=== PATIENT | female | born 1955 ===

== ENCOUNTER 2017-06-27 15:30 | Inpatient (IN) | payer MEDICAID ==
[2017-06-27] MEDS ORDERED: Nitroglycerin 2% Ointment Foilpak UD TOP STA (16:19)
--- NOTE | 2017-06-27 16:25 | C.PDOC ---
History Of Present Illness 61yo female, with history of hypertension, diabetes and non-compliant with medication for unknown reasons, presents to ED for evaluation of increased leg edema, shortness of breath and a blister on the top of her right foot, for the past week. She states the symptoms have been worsening since onset, prompting her visit today. No other complaints. Time Seen by Provider: 06/27/17 16:14 Chief Complaint (Nursing): Shortness Of Breath History Per: Patient History/Exam Limitations: no limitations Onset/Duration Of Symptoms: Days Current Symptoms Are (Timing): Still Present Past Medical History Reviewed: Historical Data, Nursing Documentation, Vital Signs Vital Signs: Last Vital Signs Temp 98 F 06/27/17 15:56 Pulse 88 06/27/17 18:05 Resp 16 06/27/17 18:05 BP 208/113 H 06/27/17 18:05 Pulse Ox 99 06/27/17 18:06 - Medical History PMH: Diabetes, HTN, Chronic Kidney Disease Surgical History: No Surg Hx Family History: States: No Known Family Hx - Social History Hx Alcohol Use: No Hx Substance Use: No - Immunization History Hx Tetanus Toxoid Vaccination: No Hx Influenza Vaccination: No Hx Pneumococcal Vaccination: No Review Of Systems Except As Marked, All Systems Reviewed And Found Negative. Constitutional: Negative for: Fever, Chills Respiratory: Positive for: Shortness of Breath Musculoskeletal: Positive for: Other (increasing leg edema, blister on dorsum of right foot) Physical Exam - Physical Exam Appears: Non-toxic Skin: Normal Color Head: Normacephalic Eye(s): bilateral: Normal Inspection Neck: Supple Chest: Symmetrical Cardiovascular: JVD, Other (+ S3) Respiratory: Rales, Other (moderate shortness of breath) Gastrointestinal/Abdominal: Soft, No Tenderness Extremity: Pedal Edema (pitting edema to bilateral kness, symmetrical), No Calf Tenderness, No Deformity, Other (5x5cm bulla on dorsum of right foot, no erythema, consistent with cellulitis) Neurological/Psych: Oriented x3 Gait: Steady ED Course And Treatment - Laboratory Results Result Diagrams: 06/27/17 16:58 06/27/17 16:58 Lab Interpretation: Abnormal (trop neg, BNP 17,000, UA 84 WBC's) ECG: Interpreted By Me ECG Rhythm: Sinus Rhythm ECG Interpretation: Normal Rate From EC (T^ inversions V5/v6) O2 Sat by Pulse Oximetry: 99 (RA) Pulse Ox Interpretation: Normal - Radiology CXR: Interpreted by Me CXR Interpretation: Yes: Other (+CHF) Progress Note: lasix, macrobid, ntp, labetolol PO Reevaluation Time: 18:02 Reassessment Condition: Improved (but BP still elevated and good compliance assured, Labetolol PO) - Physician Consult Information Outcome Of Conversation: 1800: d/w Dr. Giacomo Hameed, will refer to Dr. Alberto- Hospitalist Critical Care Time - Critical Care Note Total Time (in mins): 90 Documented critical care: time excludes all time spent performing seperately billable procedures. Medical Decision Making Medical Decision Making: Plan: -- Labs -- CXR -- Lasix 20mg IVP -- Nitro 1 application topical CHF lasix given, follow diuresis bullae on R dorsum foot probably weeping and was NOT infected, may be followed. HTN NTP and labetolol given follow BP Acute renal insufficiency creat 3.4 high no prior to compare prob related to HTN/DM consider renal US/consult DM glu 312, insulin given RISS UTI 84 WBC's Macrobid started follow UC Disposition Doctor Will See Patient In The: Hospital Counseled Patient/Family Regarding: Studies Performed, Diagnosis - Disposition Disposition: HOSPITALIZED Disposition Time: 18:04 Condition: GOOD - Clinical Impression Clinical Impression: Chronic congestive heart failure, Uncontrolled hypertension, UTI (urinary tract infection), Diabetes, Acute renal insufficiency - Scribe Statement The provider has reviewed the documentation as recorded by the Sheldone (Jaleesa Sheppard) Provider Attestation: All medical record entries made by the Eloise were at my direction and personally dictated by me. I have reviewed the chart and agree that the record accurately reflects my personal performance of the history, physical exam, medical decision making, and the department course for this patient. I have also personally directed, reviewed, and agree with the discharge instructions and disposition.
[2017-06-27] MEDS ORDERED: Nitroglycerin 2% Ointment Foilpak UD TOP ONE (16:39)
[2017-06-27 17:02] LABS: BASO # 0.1 K/uL (0.0-0.2); BASO % 1.5 % (0.0-2.0); EOS # 0.1 K/uL (0.0-0.7); EOS % 1.7 % (0.0-4.0); HEMOGLOBIN 10.8 g/dL (11.0-16.0); LYMPH % 16.3 % (20.0-40.0); MEAN CELL VOLUME 86.3 fL (81.0-99.0); MEAN CORPUSCULAR HGB CONC 33.6 g/dL (33.0-37.0); MEAN PLATELET VOLUME 8.3 fL (7.2-11.7); MONO # 0.5 K/uL (0.0-0.8); MONO % 8.1 % (0.0-10.0); NEUT # 4.5 K/uL (1.8-7.0); NEUT % 72.4 % (50.0-75.0); RBC 3.73 Mil/uL (3.80-5.20); RED CELL DISTRIBUTION WIDTH 14.7 % (11.5-14.5); WHITE BLOOD COUNT 6.2 K/uL (4.8-10.8)
[2017-06-27] MEDS ORDERED: (Novolin R) Insulin Human Regular 100 units/ml vial IV STA (17:05)
[2017-06-27 17:12] LABS: PROTHROMBIN TIME 11.5 SECONDS (9.7-12.2)
[2017-06-27] MEDS ORDERED: (Novolin R) Insulin Human Regular 100 units/ml vial ONE (17:20)
[2017-06-27 17:23] LABS: ALB/GLOB RATIO 0.9 (1.0-2.1); ALBUMIN 3.5 g/dL (3.5-5.0); CALCIUM 8.8 mg/dl (8.6-10.4)
[2017-06-27 17:25] LABS: SQUAMOUS EPITHIAL 24 /hpf (0-5); URINE BACTERIA FEW (<OCC); URINE BILIRUBIN NEGATIVE (NEGATIVE); URINE BLOOD 1+ (NEGATIVE); URINE CLARITY Hazy (Clear); URINE COLOR Yellow (YELLOW); URINE GLUCOSE (UA) 3+ mg/dL (Normal); URINE LEUKOCYTE ESTERASE 1+ Leu/uL (Negative); URINE PROTEIN 3+ mg/dL (NEGATIVE); URINE UROBILINOGEN NORMAL mg/dL (0.2-1.0)
[2017-06-27 17:31] LABS: TROPONIN I 0.034 ng/mL (0.00-0.120)
--- NOTE | 2017-06-27 17:31 | RAD ---
PROCEDURE: CHEST RADIOGRAPH, 1 VIEW HISTORY: SOB COMPARISON: None available. FINDINGS: LUNGS: Bibasilar atelectasis and or infiltrates and bilateral effusions. Central pulmonary vasculature is slightly increased. Rule out mild chronic compensated pulmonary edema/CHF PLEURA: No pneumothorax or pleural fluid seen. CARDIOVASCULAR: Heart appears mildly enlarged. OSSEOUS STRUCTURES: No significant abnormalities. VISUALIZED UPPER ABDOMEN: Normal. OTHER FINDINGS: None. IMPRESSION: Bibasilar atelectasis/infiltrates and bilateral effusions. Central pulmonary vasculature is slightly increased. Rule out mild chronic compensated pulmonary edema/CHF
--- NOTE | 2017-06-27 17:35 | RAD ---
HISTORY: Questionable of right-sided pneumothorax on prior portable chest COMPARISON: No prior. TECHNIQUE: Chest PA and lateral FINDINGS: LUNGS: Pulmonary vascular congestive changes with bilateral lower lobe alveolar-type infiltrates atelectasis and bilateral effusions PLEURA: As above. No pneumothorax seen. CARDIOVASCULAR: Cardiomegaly. OSSEOUS STRUCTURES: No mild chronic appearing anterior stature loss of several mid to lower thoracic segments. Mild multilevel degenerative spondylosis of the thoracic spine VISUALIZED UPPER ABDOMEN: Normal. OTHER FINDINGS: None. IMPRESSION: Pulmonary vascular congestive changes with bilateral lower lobe alveolar-type infiltrates atelectasis and bilateral effusions
--- NOTE | 2017-06-27 19:49 | CP.PCM.HP ---
<Niak Pierre - Last Filed: 06/28/17 02:16> History of Present Illness - History of Present Illness History of Present Illness: Code Status: Full Code Emergency Contact: Di Dallas (friend): [phone] CC: Leg swelling HPI: 61 year old female with past medical history of DM, HTN and renal injury presents to the ER for bilateral lower extremity swelling. Patient states she was brought to the ER by her friend Di. Patient states she she has noticed the swelling for over a week. She states she doesn't know why she didn't go to the ER earlier. She states her legs have also been burning about 5/10 pain constant. She has been rubbing Asim's on them with minimal relief. She states she has also been feeling short of breath for the past week when the swelling started. She states she can only walk about 5 minutes and then she has to stop. She has been sleeping with 2 pillows for many years and yesterday she had to add 2 more pillows while she was sleep due to her shortness of breath. She also states she has noticed a decrease in her weight for the past 6 months. She states she cannot quantify her decrease in weight. She states there has not been a change in her appetite. However she has been depressed because her brother of lung cancer last year. She denies thoughts of hurting herself or others. She states she has not seen a doctor in 3 years and therefore stopped taking all of her medications for the past 3 years. She denies chest pain, nausea, vomiting, diarrhea, constipation, dysuria, or hematuria. 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 absent: Chills, Fever - EENT Eyes: absent: Blurred Vision - Cardiovascular Cardiovascular: Dyspnea, Dyspnea on Exertion, Leg Edema, Pedal Edema. absent: Chest Pain, Lightheadedness, Palpitations - Respiratory Respiratory: Dyspnea, Dyspnea on Exertion. absent: Cough, Wheezing - Gastrointestinal Gastrointestinal: absent: Abdominal Pain, Constipation, Diarrhea, Nausea, Vomiting - Genitourinary Genitourinary: absent: Dysuria, Hematuria - Neurological Neurological: absent: Dizziness, Headaches - Psychiatric Psychiatric: Depression. absent: Homicidal Ideation, Suicidal Ideation - Endocrine Endocrine: absent: Palpitations Past Patient History - Past Social History Smoking Status: Never Smoked - CARDIAC Hx Hypertension: Yes - RENAL Hx Chronic Kidney Disease: Yes - ENDOCRINE/METABOLIC Hx Endocrine Disorders: Yes Hx Diabetes Mellitus Type 2: Yes - PSYCHIATRIC Hx Substance Use: No - SURGICAL HISTORY Hx Surgeries: No Meds Allergies/Adverse Reactions: Allergies Allergy/AdvReac Type Severity Reaction Status Date / Time No Known Allergies Allergy Verified 06/27/17 16:01 Physical Exam - Constitutional Appears: Cachectic, Chronically Ill - Head Exam Head Exam: ATRAUMATIC, NORMAL INSPECTION - Eye Exam Eye Exam: EOMI, Normal appearance, PERRL Pupil Exam: NORMAL ACCOMODATION - ENT Exam ENT Exam: Mucous Membranes Moist - Respiratory Exam Respiratory Exam: Decreased Breath Sounds (left lower lung decreased lung sounds ), NORMAL BREATHING PATTERN. absent: Rales, Rhonchi, Wheezes, Stridor - Cardiovascular Exam Cardiovascular Exam: REGULAR RHYTHM, RRR, +S1, +S2. absent: JVD - GI/Abdominal Exam GI & Abdominal Exam: Normal Bowel Sounds, Soft. absent: Tenderness - Extremities Exam Extremities exam: Positive for: normal capillary refill, pedal edema (+ pedal edema bilateral up to the knees), pedal pulses present. Negative for: calf tenderness, tenderness - Neurological Exam Neurological exam: Alert, Oriented x3 - Psychiatric Exam Psychiatric exam: Normal Affect, Normal Mood - Skin Skin Exam: Dry, Intact, Normal Color Results - Vital Signs Recent Vital Signs: Last Vital Signs Temp 98 F 06/27/17 18:54 Pulse 94 H 06/27/17 18:54 Resp 24 06/27/17 19:30 BP 219/125 H 06/27/17 18:54 Pulse Ox 100 06/27/17 19:30 - Labs Result Diagrams: 06/27/17 16:58 06/27/17 16:58 Labs: Laboratory Results - last 24 hr 06/27/17 06/27/17 06/27/17 16:23 16:58 16:58 WBC 6.2 RBC 3.73 L Hgb 10.8 L Hct 32.2 L MCV 86.3 MCH 29.0 MCHC 33.6 RDW 14.7 H Plt Count 333 MPV 8.3 Neut % (Auto) 72.4 Lymph % (Auto) 16.3 L [place] % (Auto) 8.1 Eos % (Auto) 1.7 Baso % (Auto) 1.5 Neut # (Auto) 4.5 Lymph # (Auto) 1.0 [place] # (Auto) 0.5 Eos # (Auto) 0.1 Baso # (Auto) 0.1 PT 11.5 INR 1.0 APTT 32 D-Dimer, Quantitative 449 H Sodium Potassium Chloride Carbon Dioxide Anion Gap BUN Creatinine Est GFR ( Amer) Est GFR (Non-Af Amer) POC Glucose (mg/dL) 312 H Random Glucose Calcium Total Bilirubin AST ALT Alkaline Phosphatase Troponin I NT-Pro-B Natriuret Pep Total Protein Albumin Globulin Albumin/Globulin Ratio Urine Color Urine Clarity Urine pH Ur Specific [place] Urine Protein Urine Glucose (UA) Urine Ketones Urine Blood Urine Nitrate Urine Bilirubin Urine Urobilinogen Ur Leukocyte Esterase Urine WBC (Auto) Urine RBC (Auto) Ur Squamous Epith Cells Urine Bacteria 06/27/17 06/27/17 16:58 16:58 WBC RBC Hgb Hct MCV MCH MCHC RDW Plt Count MPV Neut % (Auto) Lymph % (Auto) [place] % (Auto) Eos % (Auto) Baso % (Auto) Neut # (Auto) Lymph # (Auto) [place] # (Auto) Eos # (Auto) Baso # (Auto) PT INR APTT D-Dimer, Quantitative Sodium 138 Potassium 5.5 H Chloride 105 Carbon Dioxide 24 Anion Gap 15 BUN 35 H Creatinine 3.4 H Est GFR ( Amer) 17 Est GFR (Non-Af Amer) 14 POC Glucose (mg/dL) Random Glucose 297 H Calcium 8.8 Total Bilirubin 0.6 AST 42 H ALT 70 H Alkaline Phosphatase 136 H Troponin I 0.0340 NT-Pro-B Natriuret Pep 19149 H Total Protein 7.4 Albumin 3.5 Globulin 3.8 Albumin/Globulin Ratio 0.9 L Urine Color Yellow Urine Clarity Hazy Urine pH 5.0 Ur Specific [place] 1.016 Urine Protein 3+ H Urine Glucose (UA) 3+ H Urine Ketones Negative Urine Blood 1+ H Urine Nitrate Negative Urine Bilirubin Negative Urine Urobilinogen Normal Ur Leukocyte Esterase 1+ H Urine WBC (Auto) 82 H Urine RBC (Auto) 4 H Ur Squamous Epith Cells 24 H Urine Bacteria Few H Assessment & Plan - Assessment and Plan (Free Text) Assessment: 1.) Shortness of breath - possibly secondary to new onset CHF vs. PE - D-dimer: 449 - f/u VQ Scan - Heparin drip started 06/27/17 can be stopped if VQ scan negative - Patient started on bipap - Lasix 60mg IV given in the ER - Lasix 40mg IV given once - chest x-ray: pulmonary vascular congestion changes with bilateral lower lobe alveolar-type infiltrates atelectasis and bilateral effusions - Monitor I/O 2.) New onset CHF - Cardiology Consult: Dr. Granda --> help appreciated - PrBnP: [id number] - f/u Lipid Panel - f/u ECHO 3.) Bilateral LE Swelling - Lasix 60mg IV given in the ER - Lasix 40mg IV given once - Monitory I/O - Fluid restriction 1000ml 4.) History of HTN - Monitor BP - Hydralazine 10mg IV given once - Started hydrazaline 10mg po qid - f/u TSH and free T4 5.) History of DM Type II - Accuchecks - ISS - Hypoglycemia protocol - f/u A1c 6.) History of Kidney Injury - BUN/Cr: 35/3.4 - Nephro Consult: 7.) Hyperkalemia - possibly secondary to chronic kidney injury - K 5.5 - Continue to monitor 8.) Contaminated UA - patient is asymptomatic - f/u repeat UA 9.) Prophylaxis - Heparin drip - Pepcid 20mg daily Case discussed with Dr. Dolly Pierre PGY-1 <Varun Alberto - Last Filed: 06/28/17 06:29> Results - Vital Signs Recent Vital Signs: Last Vital Signs Temp 98.2 F 06/27/17 23:43 Pulse 72 06/28/17 06:04 Resp 20 06/27/17 23:43 BP 187/105 H 06/27/17 23:43 Pulse Ox 96 06/27/17 23:43 - Labs Result Diagrams: 06/27/17 16:58 06/27/17 16:58 Labs: Laboratory Results - last 24 hr 06/27/17 06/27/17 06/27/17 16:23 16:58 16:58 WBC 6.2 RBC 3.73 L Hgb 10.8 L Hct 32.2 L MCV 86.3 MCH 29.0 MCHC 33.6 RDW 14.7 H Plt Count 333 MPV 8.3 Neut % (Auto) 72.4 Lymph % (Auto) 16.3 L [place] % (Auto) 8.1 Eos % (Auto) 1.7 Baso % (Auto) 1.5 Neut # (Auto) 4.5 Lymph # (Auto) 1.0 [place] # (Auto) 0.5 Eos # (Auto) 0.1 Baso # (Auto) 0.1 PT 11.5 INR 1.0 APTT 32 D-Dimer, Quantitative 449 H Sodium Potassium Chloride Carbon Dioxide Anion Gap BUN Creatinine Est GFR ( Amer) Est GFR (Non-Af Amer) POC Glucose (mg/dL) 312 H Random Glucose Calcium Total Bilirubin AST ALT Alkaline Phosphatase Troponin I NT-Pro-B Natriuret Pep Total Protein Albumin Globulin Albumin/Globulin Ratio Urine Color Urine Clarity Urine pH Ur Specific [place] Urine Protein Urine Glucose (UA) Urine Ketones Urine Blood Urine Nitrate Urine Bilirubin Urine Urobilinogen Ur Leukocyte Esterase Urine WBC (Auto) Urine RBC (Auto) Ur Squamous Epith Cells Urine Bacteria 06/27/17 06/27/17 06/27/17 16:58 16:58 21:08 WBC RBC Hgb Hct MCV MCH MCHC RDW Plt Count MPV Neut % (Auto) Lymph % (Auto) [place] % (Auto) Eos % (Auto) Baso % (Auto) Neut # (Auto) Lymph # (Auto) [place] # (Auto) Eos # (Auto) Baso # (Auto) PT INR APTT D-Dimer, Quantitative Sodium 138 Potassium 5.5 H Chloride 105 Carbon Dioxide 24 Anion Gap 15 BUN 35 H Creatinine 3.4 H Est GFR ( Amer) 17 Est GFR (Non-Af Amer) 14 POC Glucose (mg/dL) 232 H Random Glucose 297 H Calcium 8.8 Total Bilirubin 0.6 AST 42 H ALT 70 H Alkaline Phosphatase 136 H Troponin I 0.0340 NT-Pro-B Natriuret Pep 62315 H Total Protein 7.4 Albumin 3.5 Globulin 3.8 Albumin/Globulin Ratio 0.9 L Urine Color Yellow Urine Clarity Hazy Urine pH 5.0 Ur Specific [place] 1.016 Urine Protein 3+ H Urine Glucose (UA) 3+ H Urine Ketones Negative Urine Blood 1+ H Urine Nitrate Negative Urine Bilirubin Negative Urine Urobilinogen Normal Ur Leukocyte Esterase 1+ H Urine WBC (Auto) 82 H Urine RBC (Auto) 4 H Ur Squamous Epith Cells 24 H Urine Bacteria Few H Assessment & Plan - Date & Time Date: 06/28/17 (I have seen and examined the patient. I agree with the findings and plan of care as documented by Dr. Pierre. Patient with acute CHF. New Onset. Consult to cardio. ROMIx3 with EKG. Aspirin and Statin. Lasix IV. Elevated d-dimer. CT angio not done due to renal status. VQ scan in AM. Heparin. NISS and accuchecks for history of diabetes. Monitor for acute changes.) Time: 06:27 Attending/Attestation - Attestation I have personally seen and examined this patient.: Yes I have fully participated in the care of the patient.: Yes I have reviewed all pertinent clinical information: Yes
[2017-06-27] MEDS ORDERED: Heparin25000 units/250ml 1/2NS 25,000 UNITS/250 ML BAG IV PRN ×2 (21:14→22:01)
[2017-06-27] MEDS ORDERED: Glucagon Recombinant 1 mg Inj IM PRN (21:14)
[2017-06-27] MEDS ORDERED: Dextrose 50% SYRINGE Inj (50 ml) IV PRN (21:14)
[2017-06-27] MEDS: (Novolin R) Insulin Human Regular 100 units/ml vial SC SCH (21:56)
[2017-06-28] MEDS: Albuterol-Ipratrop 3 mg / 0.5 (3 ml) UD INH SCH ×4 (01:45→19:53)
[2017-06-28 07:14] LABS: BASO # 0.1 K/uL (0.0-0.2); BASO % 1.8 % (0.0-2.0); EOS # 0.1 K/uL (0.0-0.7); HEMOGLOBIN 10.1 g/dL (11.0-16.0); LYMPH # 1.1 K/uL (1.0-4.3); LYMPH % 21.1 % (20.0-40.0); MEAN CELL VOLUME 85.9 fL (81.0-99.0); MEAN CORPUSCULAR HEMOGLOBIN 28.8 pg (27.0-31.0); MEAN CORPUSCULAR HGB CONC 33.5 g/dL (33.0-37.0); MEAN PLATELET VOLUME 8.4 fL (7.2-11.7); MONO # 0.5 K/uL (0.0-0.8); MONO % 8.8 % (0.0-10.0); NEUT # 3.4 K/uL (1.8-7.0); NEUT % 66.3 % (50.0-75.0); RBC 3.53 Mil/uL (3.80-5.20); RED CELL DISTRIBUTION WIDTH 15.2 % (11.5-14.5); WHITE BLOOD COUNT 5.2 K/uL (4.8-10.8)
[2017-06-28 07:23] LABS: PROTHROMBIN TIME 11.6 SECONDS (9.7-12.2)
[2017-06-28 07:44] LABS: TROPONIN I 0.052 ng/mL (0.00-0.120)
[2017-06-28 07:53] LABS: T4 9.47 ug/dL (5.5-11.0)
[2017-06-28 08:06] LABS: ALB/GLOB RATIO 0.9 (1.0-2.1); ALBUMIN 3.2 g/dL (3.5-5.0); CALCIUM 8.9 mg/dl (8.6-10.4)
[2017-06-28] MEDS: (Novolin R) Insulin Human Regular 100 units/ml vial SC SCH ×4 (08:27→22:05)
[2017-06-28] MEDS: (Novolin 70/30) NPH/Regular 70/30 Units/ml 10 ml vial SC SCH ×2 (10:37→22:04)
--- NOTE | 2017-06-28 10:39 | NM ---
EXAMINATION: Ventilation-perfusion scan. COMPARISON EXAMINATION: June 27, 2017. TWO-VIEW CHEST. TECHNIQUE: 13 MCI SEEN ON 03/1932 GAS ADMINISTERED PER AEROSOL. 4 MCI TECHNETIUM 99 M MAA ADMINISTERED INTRAVENOUSLY. FINDINGS: VENTILATION COMPONENT: UNREMARKABLE. PERFUSION COMPONENT: Heterogeneous distribution of radionuclide. No geographic, segmental, lobar abnormalities apparent on the present examination. IMPRESSION: LOW PROBABILITY VENTILATION PERFUSION SCAN FOR PULMONARY EMBOLISM. Concordant results (preliminary interpretation) provided by [facility]. Procedure Completed: 00:50 Preliminary ([facility]) Report: Dictated and Authenticated: Final Interpretation: 10:37 June 28, 2017.
--- NOTE | 2017-06-28 11:03 | CP.PCM.PN ---
<Klever Wright - Last Filed: 06/28/17 15:49> Subjective - Date & Time of Evaluation Date of Evaluation: 06/28/17 Time of Evaluation: 07:50 - Subjective Subjective: Medicine progress note for Dr. Hameed Patient seen and examined. Patient reports feeling better today. Patient's swelling has decreased down to the legs whereas it was up to her thighs previously per patient. Patient is also breathing better today; however she does note that she was using the BiPAP at night. Objective - Vital Signs/Intake and Output Vital Signs (last 24 hours): Temp Pulse Resp BP Pulse Ox 97.4 F L 74 20 197/106 H 97 06/28/17 08:34 06/28/17 08:34 06/28/17 08:34 06/28/17 08:34 06/28/17 08:34 Intake and Output: 06/28/17 06/28/17 06:59 18:59 Intake Total 108 Balance 108 - Medications Medications: Current Medications Albuterol/Ipratropium (Duoneb 3 Mg/0.5 Mg (3 Ml) Ud) 3 ml INH RQ6 [facility] Last Admin: 06/28/17 07:38 Dose: 3 ml Aspirin (Aspirin Chewable) 81 mg PO DAILY [facility] Last Admin: 06/28/17 10:35 Dose: 81 mg Dextrose (Dextrose 50% Inj) 0 ml IV STAT PRN; Protocol PRN Reason: Hypoglycemia Protocol Dextrose (Glutose 15) 0 gm PO ONCE PRN; Protocol PRN Reason: Hypoglycemia Protocol Famotidine (Pepcid) 20 mg PO DAILY [facility] Last Admin: 06/28/17 10:35 Dose: 20 mg Glucagon (Glucagen Diagnostic Kit) 0 mg IM STAT PRN; Protocol PRN Reason: Hypoglycemia Protocol Hydralazine HCl (Apresoline) 10 mg PO QID [facility] Last Admin: 06/28/17 10:36 Dose: 10 mg Dextrose (Dextrose 5% In Water 1000 Ml) 1,000 mls @ 0 mls/hr IV .Q0M PRN; Protocol; Per Protocol PRN Reason: Hypoglycemia Protocol Insulin Human Isoph/Insulin Regular (Novolin 70/30 (70/30 Units/Ml) 10 Ml) 15 units SC Q12H [facility] Last Admin: 06/28/17 10:37 Dose: 15 units Insulin Human Regular (Novolin R) 0 unit SC ACHS [facility] PRN Reason: Protocol Last Admin: 06/28/17 08:27 Dose: 2 unit - Labs Labs: 06/28/17 07:08 06/28/17 07:08 PT 11.6 SECONDS (9.7-12.2) 06/28/17 07:08 INR 1.0 06/28/17 07:08 APTT 81 SECONDS (21-34) H D 06/28/17 07:08 - Additional Findings Additional findings: - Constitutional Appears: Cachectic, Chronically Ill - Head Exam Head Exam: ATRAUMATIC, NORMAL INSPECTION - Eye Exam Eye Exam: EOMI, Normal appearance, PERRL - ENT Exam ENT Exam: Mucous Membranes Moist - Respiratory Exam Respiratory Exam: Decreased Breath Sounds (left lower lung decreased lung sounds ), NORMAL BREATHING PATTERN. absent: Rales, Rhonchi, Wheezes, Stridor - Cardiovascular Exam Cardiovascular Exam: REGULAR RHYTHM, +S1, +S2. absent: JVD - GI/Abdominal Exam GI & Abdominal Exam: Normal Bowel Sounds, Soft. absent: Tenderness - Extremities Exam Extremities exam: Positive for: normal capillary refill, pedal edema (2+ pitting edema bilateral), pedal pulses present. Negative for: calf tenderness, tenderness - Neurological Exam Neurological exam: Alert, Oriented x3 - Psychiatric Exam Psychiatric exam: Normal Affect, Normal Mood - Skin Skin Exam: Dry, Intact, Normal Color Assessment and Plan - Assessment and Plan (Free Text) Plan: 1.) Shortness of breath D-dimer: 449 - VQ Scan: low probability for PE - Heparin drip discontinued BiPAP prn Lasix 80 mg IV BID chest x-ray: pulmonary vascular congestion changes with bilateral lower lobe alveolar-type infiltrates atelectasis and bilateral effusions Monitor I/O 2.) New onset CHF Cardiology Consult: Dr. Granda --> help appreciated PrBnP: [id number] Lipid Panel shows TGs 60, LDL 128, HDL 79 f/u ECHO 3.) Bilateral LE Swelling Lasix 80mg IV BID Monitory I/O Fluid restriction 1000ml Venous dopplers negative for DVT 4.) History of HTN Monitor BP Hydralazine 10mg IV Q6 prn Hydrazaline 50mg po QID Per nephro, Coreg 6.25 mg PO BID and Lasix 80 mg IV BID were started 5.) History of DM Type II Accuchecks ISS Hypoglycemia protocol Hemoglobin A1c 10.6 NPH/Regular 15 units SC Q12H 6.) History of Chronic Kidney Injury Elevated BUN/Cr likely due to long-standing HTN and DM Nephro Consult: Dr. Mcdowell, chetan appreciated Renal ultrasound shows medical renal disease 7.) Hyperkalemia possibly secondary to chronic kidney injury Continue to monitor 8.) UTI Rocephin 1 gm IV daily started on 06/28/17 9.) Prophylaxis Heparin drip discontinued. Due to elevated PTT, will wait until tomorrow before starting Heparin SC Pepcid 20mg daily Discussed with Dr. Zari Wright PGY-1 <Giacomo Hameed H - Last Filed: 06/28/17 18:44> Objective - Vital Signs/Intake and Output Vital Signs (last 24 hours): Temp Pulse Resp BP Pulse Ox 97.9 F 78 20 191/90 H 99 06/28/17 15:00 06/28/17 15:00 06/28/17 15:00 06/28/17 17:42 06/28/17 15:00 Intake and Output: 06/28/17 06/28/17 06:59 18:59 Intake Total 601.73 Balance 601.73 - Medications Medications: Current Medications Albuterol/Ipratropium (Duoneb 3 Mg/0.5 Mg (3 Ml) Ud) 3 ml INH RQ6 [facility] Last Admin: 06/28/17 13:14 Dose: 3 ml Aspirin (Aspirin Chewable) 81 mg PO DAILY [facility] Last Admin: 06/28/17 10:35 Dose: 81 mg Carvedilol (Coreg) 6.25 mg PO BID [facility] Last Admin: 06/28/17 17:42 Dose: 6.25 mg Dextrose (Dextrose 50% Inj) 0 ml IV STAT PRN; Protocol PRN Reason: Hypoglycemia Protocol Dextrose (Glutose 15) 0 gm PO ONCE PRN; Protocol PRN Reason: Hypoglycemia Protocol Ergocalciferol (Drisdol 50,000 Intl Units Cap) 1 cap PO Q7D [facility] Last Admin: 06/28/17 16:17 Dose: 1 cap Famotidine (Pepcid) 20 mg PO DAILY [facility] Last Admin: 06/28/17 10:35 Dose: 20 mg Ferrous Gluconate (Fergon) 324 mg PO TID [facility] Last Admin: 06/28/17 17:42 Dose: 324 mg Furosemide (Lasix) 80 mg IVP BID [facility] Last Admin: 06/28/17 17:42 Dose: 80 mg Glucagon (Glucagen Diagnostic Kit) 0 mg IM STAT PRN; Protocol PRN Reason: Hypoglycemia Protocol Hydralazine HCl (Apresoline) 50 mg PO QID [facility] Last Admin: 06/28/17 17:42 Dose: 50 mg Hydralazine HCl (Apresoline) 10 mg IVP Q6H PRN PRN Reason: SBP>160 Last Admin: 06/28/17 14:59 Dose: 10 mg Dextrose (Dextrose 5% In Water 1000 Ml) 1,000 mls @ 0 mls/hr IV .Q0M PRN; Protocol; Per Protocol PRN Reason: Hypoglycemia Protocol Ceftriaxone Sodium 1 gm/ (Sodium Chloride) 100 mls @ 100 mls/hr IVPB Q24H [facility] PRN Reason: Protocol Last Admin: 06/28/17 12:46 Dose: 100 mls/hr Insulin Human Isoph/Insulin Regular (Novolin 70/30 (70/30 Units/Ml) 10 Ml) 15 units SC Q12H [facility] Last Admin: 06/28/17 10:37 Dose: 15 units Insulin Human Regular (Novolin R) 0 unit SC ACHS [facility] PRN Reason: Protocol Last Admin: 06/28/17 17:43 Dose: Not Given Vitamin B Complex/Vit C/Folic Acid (Nephro-Matti) 1 tab PO 0800 [facility] - Labs Labs: 06/28/17 07:08 06/28/17 07:08 PT 11.6 SECONDS (9.7-12.2) 06/28/17 07:08 INR 1.0 06/28/17 07:08 APTT 125 SECONDS (21-34) H* D 06/28/17 14:03 Attending/Attestation - Attestation I have personally seen and examined this patient.: Yes I have fully participated in the care of the patient.: Yes I have reviewed all pertinent clinical information, including history, physical exam and plan: Yes Notes (Text): Medical attending: Patient was seen and examined by me. Agree with the above note by the resident. The patient appeared very depressed and sad. She explains she's just had a family member pass away. We did discuss with her that we are waiting for the results of the echo as well as results of the renal ultrasound. She does have a high BNP as well as CXRAY findings suggest CHF probably for some time now. Also there is appears to be CKD, probably from long standing HTN as well as DM. She got Lasix IV overnight and then on higher doses now per nephrology. She has also very high blood pressure. She tells us she is aware of her HTN but has not been on medications. The HTN is probably also worsned due to her level of stress/anxiety as well. The V/Q returned and low probability - so the heparin ggt was stopped. thank you Giacomo Hameed
--- NOTE | 2017-06-28 11:52 | CARD ---
APPROVED REPORT EKG Measurement Heart [id number] <Conclusion> Normal sinus rhythm Anterior infarct, age undetermined ST & T wave abnormality, consider lateral ischemia Abnormal ECG
[2017-06-28 12:27] LABS: SQUAMOUS EPITHIAL 2 /hpf (0-5); URINE BILIRUBIN NEGATIVE (NEGATIVE); URINE BLOOD 1+ (NEGATIVE); URINE CLARITY Hazy (Clear); URINE COLOR Yellow (YELLOW); URINE GLUCOSE (UA) 3+ mg/dL (Normal); URINE LEUKOCYTE ESTERASE NEG Leu/uL (Negative); URINE PROTEIN 3+ mg/dL (NEGATIVE); URINE UROBILINOGEN NORMAL mg/dL (0.2-1.0)
[2017-06-28 12:29] LABS: URINE BACTERIA FEW (<OCC)
[2017-06-28 12:37] LABS: CREATININE, RANDOM URINE 59.8 mg/dL
--- NOTE | 2017-06-28 13:39 | US ---
Renal and urinary bladder ultrasound History: Acute renal insufficiency. Comparison: None available. Technique: Real-time sonography was performed through the kidneys and urinary bladder. Findings: Right kidney: 11.2 x 4.3 x 5.8 centimeters. Increased echogenicity of the renal parenchymal cortex suggestive for medical renal disease. No calculi or hydronephrosis. Left Kidney: 10.4 x 4.6 x 4.9 centimeters. Increased echogenicity of the renal parenchymal cortex suggestive for medical renal disease. No calculi or hydronephrosis. Visualized aorta is preserved. Patient voided prior to examination therefore evaluation of the urinary bladder is limited. Underdistended and or mildly thickened urinary bladder wall. Postvoid residual of 34 cc. Bilateral ureteral jets were not well visualized. No gross bladder calculus identified. Bilateral pleural effusions were noted. Impression: 1. Increased echogenicity of the bilateral renal parenchymal cortices suggestive for medical renal disease. 2. Limited evaluation of the urinary bladder given that the patient voided prior to examination. 34 cc postvoid residual in the urinary bladder. Mild underdistention and or thickening of the urinary bladder. Clinical correlation. Bilateral ureteral jets were not well visualized. 3. Bilateral pleural effusions were noted.
--- NOTE | 2017-06-28 14:00 | VASCLAB ---
PROCEDURE: Lower Extremity Venous Duplex Exam. HISTORY: LE swelling PRIORS: None. TECHNIQUE: Bilateral common femoral, femoral, popliteal and posterior tibial, peroneal and great saphenous veins were evaluated. Flow was assessed with color Doppler, compressibility, assessment of phasic flow and augmentation response. Report prepared by PAT Mak, RVT FINDINGS: RIGHT: 1. Common Femoral Vein: 1.1. Compressibility - Fully compressible: Thrombus - None : Flow - Phasic: Augmentation -Normal: Reflux - None. 2. Femoral Vein: 2.1. Compressibility - Fully compressible: Thrombus - None : Flow - Phasic: Augmentation -Normal: Reflux - None. 3. Popliteal Vein: 3.1. Compressibility - Fully compressible: Thrombus - None : Flow - Phasic: Augmentation -Normal: Reflux - None. 4. Posterior Tibial Vein: 4.1. Compressibility - Fully compressible: Thrombus - None: Flow - Phasic: Augmentation -Normal: Reflux - None. 5. Peroneal Vein: 5.1. Compressibility - Fully compressible: Thrombus - None: Flow - Phasic: Augmentation -Normal: Reflux - None. 6. Great Saphenous Vein: 6.1. Compressibility - Fully compressible: Thrombus - None: Flow - Phasic: Augmentation - Normal: Reflux - None. LEFT: 1. Common Femoral Vein: 1.1. Compressibility - Fully compressible: Thrombus - None: Flow - Phasic: Augmentation -Normal: Reflux - None. 2. Femoral Vein: 2.1. Compressibility - Fully compressible: Thrombus - None: Flow - Phasic: Augmentation -Normal: Reflux - None. 3. Popliteal Vein: 3.1. Compressibility - Fully compressible: Thrombus - None : Flow - Phasic: Augmentation -Normal: Reflux - None. 4. Posterior Tibial Vein: 4.1. Compressibility - Fully compressible: Thrombus - None: Flow - Phasic: Augmentation -Normal: Reflux - None. 5. Peroneal Vein: 5.1. Compressibility - Fully compressible: Thrombus - None: Flow - Phasic: Augmentation -Normal: Reflux - None. 6. Great Saphenous Vein: 6.1. Compressibility - Fully compressible: Thrombus - None: Flow - Phasic: Augmentation - Normal: Reflux - None. OTHER FINDINGS: Right: None significant. Left: None significant. IMPRESSION: Right: No evidence of deep or superficial vein thrombosis of the right lower extremity. Normal valve function noted of the right side. Left: No evidence of deep or superficial vein thrombosis of the left lower extremity. Normal valve function noted of the left side.
[2017-06-28 14:19] LABS: IRON 29 ug/dL (37-170)
[2017-06-28 14:22] LABS: COMPLEMENT C4 37.5 mg/dL (14.0-44.0)
[2017-06-28 14:29] LABS: % IRON SATURATION 13 (20-55); TOTAL IRON BINDING CAPACITY 231 ug/dL (250-450)
[2017-06-28 14:55] LABS: FERRITIN 37.6 ng/mL
[2017-06-28 15:25] LABS: FOLATE 12.8 ng/mL
--- NOTE | 2017-06-28 15:33 | CP.PCM.CON ---
History of Present Illness - History of Present Illness History of Present Illness: Initial Nephrology Consultation: Assessment: critical Nephrotic syndrome with fluid overload Acute Kidney Injury (N17.9) versus likely progressive underlying CKD Diabetic chronic Kidney Disease (E11.22) Hypertensive Chronic Kidney Disease (I12.9) with HTN urgency ? Chronic Kidney Disease (N18.5) Stage 5 with 5 gm proteinuria (R80.9) likely due to DM Anemia (D64.9), Hyperphosphatemia (E83.39), Secondary Hyperparathyroidism (E21.1 ), HTN (I12.9) non compliance to meds and follow up Plan No acute need for renal replacement therapy at this time. Hypertension control with meds as ordered. Patient not on ACEI/ARB due to advanced renal insuff. add coreg 6.25 mg bid Monitor Input/Output, daily weights and renal function with basic metabolic panel diuresis with IV lasix 80 mg bid add iron supplements, MVI and weekly Vitamin D Check urine analysis, spot protein/creatinine and albumin/creatinine ratio, renal sonogram. Check for 25-OH vitamin D, iPTH, phosphorus level Check GN work up as C3, C4, CANDY, Anti dsDNA, HIV/Hep B and Hep C serology anemia work up with serum protein electrophoresis with immunofixation, free light chain assay, iron studies compliance to meds and follow up reinforced once stable, consider age appropriate malignancy screening Dose meds/antibiotics for reduced GFR. Avoid fleets enema/magnesium based laxatives. Avoid nephrotoxins/NSAIDs/ iodinated contrast (unless needed emergently) Glycemic control Further work up/management as per primary team Thanks for allowing me to participate in care of your patient. Will follow patient with you. Please call if any Qs. d/w team. Dr Roque Ruth Office: [phone] Chief Complaint; leg swelling and SOB HPI: Pt is a 61 F with hx of diabetes Mellitus (>20 years), hypertension (>20 years), kidney disease for few years, not taking meds for last 3 years and no followups presented with complaints of SOB and worsening legs swelling for last 1 week Denies OTC/herbal meds or NSAIDs No recent iodinated contrast exposure. No obvious episodes of low BP. she feels that had lost weight, don't know how much pt says she was told in [place] few years ago that kidney was damaged due to DM /HTN ROS: Cardiovascular: No chest pain. Pulmonary: c/o shortness of breath Gastrointestinal: denies abdominal pain No nausea. No vomiting. Genitourinary: No pain while urinating. Denies blood in urine. All other negative Physical Examination: General Appearance: Comfortable, in no acute respiratory distress, co-operative . facial muscle wasting + Vitals reviewed and noted as below Head; Atraumatic, normocephalic ENT: no ulcers no thrush. Tongue is midline. Oropharynx: no rash or ulcers. EYES: Pupils are equal, round and reactive to light accommodation. Eye muscles and extraocular movement intact. Sclera is anicteric. Neck; supple no lymphadenopathy, no thyromegaly or bruit Lungs: Normal respiratory rate/effort. Breath sounds bilateral equal and decreased at bases Heart: Normal rate. s1s2 normal. No rub or gallop. Extremities: 2+ edema. No varicose veins Neurological: Patient is alert, awake and oriented to person, place and time. No focal deficit. Strength bilateral appropriate and equal Skin: Warm and dry. Normal turgor. No rash. Palpitation: Normal elasticity for age Abdomen: Abdomen is soft. Bowel sounds +. There is no abdominal tenderness, no guarding/rigidity no organomegaly Psych: lack insight and has normal affect/mood MSK: no joint tenderness or swelling. Digits and nails normal, no deformity : kidney or bladder not palpable Labs/imaging reviewed. Past medical history, past surgical history, family history, social history, allergy reviewed and noted as below Family hx: no hx of CKD. Rest non-contributory Past Patient History - Past Medical History & Family History Past Medical History?: Yes - Past Social History Smoking Status: Never Smoked - CARDIAC Hx Hypertension: Yes - RENAL Hx Chronic Kidney Disease: Yes - ENDOCRINE/METABOLIC Hx Endocrine Disorders: Yes Hx Diabetes Mellitus Type 2: Yes - MUSCULOSKELETAL/RHEUMATOLOGICAL Hx Falls: No - PSYCHIATRIC Hx Substance Use: No - SURGICAL HISTORY Hx Surgeries: No Meds Allergies/Adverse Reactions: Allergies Allergy/AdvReac Type Severity Reaction Status Date / Time No Known Allergies Allergy Verified 06/27/17 16:01 - Medications Medications: Current Medications Albuterol/Ipratropium (Duoneb 3 Mg/0.5 Mg (3 Ml) Ud) 3 ml INH RQ6 ATUL Last Admin: 06/28/17 13:14 Dose: 3 ml Aspirin (Aspirin Chewable) 81 mg PO DAILY [facility] Last Admin: 06/28/17 10:35 Dose: 81 mg Dextrose (Dextrose 50% Inj) 0 ml IV STAT PRN; Protocol PRN Reason: Hypoglycemia Protocol Dextrose (Glutose 15) 0 gm PO ONCE PRN; Protocol PRN Reason: Hypoglycemia Protocol Famotidine (Pepcid) 20 mg PO DAILY [facility] Last Admin: 06/28/17 10:35 Dose: 20 mg Furosemide (Lasix) 80 mg IVP BID [facility] Last Admin: 06/28/17 12:36 Dose: 80 mg Glucagon (Glucagen Diagnostic Kit) 0 mg IM STAT PRN; Protocol PRN Reason: Hypoglycemia Protocol Hydralazine HCl (Apresoline) 50 mg PO QID [facility] Last Admin: 06/28/17 14:01 Dose: 50 mg Hydralazine HCl (Apresoline) 10 mg IVP Q6H PRN PRN Reason: SBP>160 Dextrose (Dextrose 5% In Water 1000 Ml) 1,000 mls @ 0 mls/hr IV .Q0M PRN; Protocol; Per Protocol PRN Reason: Hypoglycemia Protocol Ceftriaxone Sodium 1 gm/ (Sodium Chloride) 100 mls @ 100 mls/hr IVPB Q24H [facility] PRN Reason: Protocol Last Admin: 06/28/17 12:46 Dose: 100 mls/hr Insulin Human Isoph/Insulin Regular (Novolin 70/30 (70/30 Units/Ml) 10 Ml) 15 units SC Q12H [facility] Last Admin: 06/28/17 10:37 Dose: 15 units Insulin Human Regular (Novolin R) 0 unit SC ACHS [facility] PRN Reason: Protocol Last Admin: 06/28/17 12:36 Dose: 3 unit Results - Vital Signs Recent Vital Signs: Last Vital Signs Temp 97.4 F L 06/28/17 08:34 Pulse 80 06/28/17 14:01 Resp 20 06/28/17 08:34 BP 182/78 H 06/28/17 14:01 Pulse Ox 97 06/28/17 08:34 - Labs Result Diagrams: 06/28/17 07:08 06/28/17 07:08 Labs: Laboratory Results - last 24 hr 06/27/17 06/27/17 06/27/17 16:23 16:58 16:58 WBC 6.2 RBC 3.73 L Hgb 10.8 L Hct 32.2 L MCV 86.3 MCH 29.0 MCHC 33.6 RDW 14.7 H Plt Count 333 MPV 8.3 Neut % (Auto) 72.4 Lymph % (Auto) 16.3 L [place] % (Auto) 8.1 Eos % (Auto) 1.7 Baso % (Auto) 1.5 Neut # (Auto) 4.5 Lymph # (Auto) 1.0 [place] # (Auto) 0.5 Eos # (Auto) 0.1 Baso # (Auto) 0.1 PT 11.5 INR 1.0 APTT 32 D-Dimer, Quantitative 449 H Sodium Potassium Chloride Carbon Dioxide Anion Gap BUN Creatinine Est GFR ( Amer) Est GFR (Non-Af Amer) POC Glucose (mg/dL) 312 H Random Glucose Hemoglobin A1c Calcium Phosphorus Magnesium Iron TIBC % Saturation Ferritin Total Bilirubin AST ALT Alkaline Phosphatase Troponin I NT-Pro-B Natriuret Pep Total Protein Albumin Globulin Albumin/Globulin Ratio Triglycerides Cholesterol LDL Cholesterol Direct HDL Cholesterol 25-OH Vitamin D Total Thyroxine (T4) TSH 3rd Generation Urine Color Urine Clarity Urine pH Ur Specific [place] Urine Protein Urine Glucose (UA) Urine Ketones Urine Blood Urine Nitrate Urine Bilirubin Urine Urobilinogen Ur Leukocyte Esterase Urine WBC (Auto) Urine RBC (Auto) Ur Squamous Epith Cells Urine Bacteria Ur Random Creatinine U Random Total Protein Urine Microalbumin Complement C3 Complement C4 06/27/17 06/27/17 06/27/17 16:58 16:58 21:08 WBC RBC Hgb Hct MCV MCH MCHC RDW Plt Count MPV Neut % (Auto) Lymph % (Auto) [place] % (Auto) Eos % (Auto) Baso % (Auto) Neut # (Auto) Lymph # (Auto) [place] # (Auto) Eos # (Auto) Baso # (Auto) PT INR APTT D-Dimer, Quantitative Sodium 138 Potassium 5.5 H Chloride 105 Carbon Dioxide 24 Anion Gap 15 BUN 35 H Creatinine 3.4 H Est GFR ( Amer) 17 Est GFR (Non-Af Amer) 14 POC Glucose (mg/dL) 232 H Random Glucose 297 H Hemoglobin A1c Calcium 8.8 Phosphorus Magnesium Iron TIBC % Saturation Ferritin Total Bilirubin 0.6 AST 42 H ALT 70 H Alkaline Phosphatase 136 H Troponin I 0.0340 NT-Pro-B Natriuret Pep 80961 H Total Protein 7.4 Albumin 3.5 Globulin 3.8 Albumin/Globulin Ratio 0.9 L Triglycerides Cholesterol LDL Cholesterol Direct HDL Cholesterol 25-OH Vitamin D Total Thyroxine (T4) TSH 3rd Generation Urine Color Yellow Urine Clarity Hazy Urine pH 5.0 Ur Specific [place] 1.016 Urine Protein 3+ H Urine Glucose (UA) 3+ H Urine Ketones Negative Urine Blood 1+ H Urine Nitrate Negative Urine Bilirubin Negative Urine Urobilinogen Normal Ur Leukocyte Esterase 1+ H Urine WBC (Auto) 82 H Urine RBC (Auto) 4 H Ur Squamous Epith Cells 24 H Urine Bacteria Few H Ur Random Creatinine U Random Total Protein Urine Microalbumin Complement C3 Complement C4 06/28/17 06/28/17 06/28/17 06:31 07:08 07:08 WBC 5.2 RBC 3.53 L Hgb 10.1 L Hct 30.3 L MCV 85.9 MCH 28.8 MCHC 33.5 RDW 15.2 H Plt Count 311 MPV 8.4 Neut % (Auto) 66.3 Lymph % (Auto) 21.1 [place] % (Auto) 8.8 Eos % (Auto) 2.0 Baso % (Auto) 1.8 Neut # (Auto) 3.4 Lymph # (Auto) 1.1 [place] # (Auto) 0.5 Eos # (Auto) 0.1 Baso # (Auto) 0.1 PT INR APTT D-Dimer, Quantitative Sodium 141 Potassium 4.9 Chloride 105 Carbon Dioxide 23 Anion Gap 17 BUN 39 H Creatinine 3.8 H Est GFR ( Amer) 15 Est GFR (Non-Af Amer) 12 POC Glucose (mg/dL) 238 H Random Glucose 267 H Hemoglobin A1c Calcium 8.9 Phosphorus 3.9 Magnesium 2.1 Iron TIBC % Saturation Ferritin Total Bilirubin 0.4 AST 28 ALT 58 H Alkaline Phosphatase 120 Troponin I NT-Pro-B Natriuret Pep Total Protein 6.9 Albumin 3.2 L Globulin 3.7 Albumin/Globulin Ratio 0.9 L Triglycerides 60 Cholesterol 220 H LDL Cholesterol Direct 128 HDL Cholesterol 79 H 25-OH Vitamin D Total Thyroxine (T4) 9.47 TSH 3rd Generation 1.02 Urine Color Urine Clarity Urine pH Ur Specific [place] Urine Protein Urine Glucose (UA) Urine Ketones Urine Blood Urine Nitrate Urine Bilirubin Urine Urobilinogen Ur Leukocyte Esterase Urine WBC (Auto) Urine RBC (Auto) Ur Squamous Epith Cells Urine Bacteria Ur Random Creatinine U Random Total Protein Urine Microalbumin Complement C3 Complement C4 06/28/17 06/28/17 06/28/17 07:08 07:08 07:08 WBC RBC Hgb Hct MCV MCH MCHC RDW Plt Count MPV Neut % (Auto) Lymph % (Auto) [place] % (Auto) Eos % (Auto) Baso % (Auto) Neut # (Auto) Lymph # (Auto) [place] # (Auto) Eos # (Auto) Baso # (Auto) PT 11.6 INR 1.0 APTT 81 H D D-Dimer, Quantitative Sodium Potassium Chloride Carbon Dioxide Anion Gap BUN Creatinine Est GFR ( Amer) Est GFR (Non-Af Amer) POC Glucose (mg/dL) Random Glucose Hemoglobin A1c 10.6 H Calcium Phosphorus Magnesium Iron TIBC % Saturation Ferritin 37.6 Total Bilirubin AST ALT Alkaline Phosphatase Troponin I 0.0520 NT-Pro-B Natriuret Pep Total Protein Albumin Globulin Albumin/Globulin Ratio Triglycerides Cholesterol LDL Cholesterol Direct HDL Cholesterol 25-OH Vitamin D Total Thyroxine (T4) TSH 3rd Generation Urine Color Urine Clarity Urine pH Ur Specific [place] Urine Protein Urine Glucose (UA) Urine Ketones Urine Blood Urine Nitrate Urine Bilirubin Urine Urobilinogen Ur Leukocyte Esterase Urine WBC (Auto) Urine RBC (Auto) Ur Squamous Epith Cells Urine Bacteria Ur Random Creatinine U Random Total Protein Urine Microalbumin Complement C3 Complement C4 06/28/17 06/28/17 06/28/17 09:00 11:32 12:02 WBC RBC Hgb Hct MCV MCH MCHC RDW Plt Count MPV Neut % (Auto) Lymph % (Auto) [place] % (Auto) Eos % (Auto) Baso % (Auto) Neut # (Auto) Lymph # (Auto) [place] # (Auto) Eos # (Auto) Baso # (Auto) PT INR APTT D-Dimer, Quantitative Sodium Potassium Chloride Carbon Dioxide Anion Gap BUN Creatinine Est GFR ( Amer) Est GFR (Non-Af Amer) POC Glucose (mg/dL) 278 H Random Glucose Hemoglobin A1c Calcium Phosphorus Magnesium Iron TIBC % Saturation Ferritin Total Bilirubin AST ALT Alkaline Phosphatase Troponin I NT-Pro-B Natriuret Pep Total Protein Albumin Globulin Albumin/Globulin Ratio Triglycerides Cholesterol LDL Cholesterol Direct HDL Cholesterol 25-OH Vitamin D Total Thyroxine (T4) TSH 3rd Generation Urine Color Yellow Urine Clarity Hazy Urine pH 5.0 Ur Specific [place] 1.009 Urine Protein 3+ H Urine Glucose (UA) 3+ H Urine Ketones Negative Urine Blood 1+ H Urine Nitrate Negative Urine Bilirubin Negative Urine Urobilinogen Normal Ur Leukocyte Esterase Neg Urine WBC (Auto) 6 H Urine RBC (Auto) 1 Ur Squamous Epith Cells 2 Urine Bacteria Few H Ur Random Creatinine U Random Total Protein Urine Microalbumin Complement C3 134.0 Complement C4 37.5 06/28/17 06/28/17 06/28/17 12:03 12:07 14:00 WBC RBC Hgb Hct MCV MCH MCHC RDW Plt Count MPV Neut % (Auto) Lymph % (Auto) [place] % (Auto) Eos % (Auto) Baso % (Auto) Neut # (Auto) Lymph # (Auto) [place] # (Auto) Eos # (Auto) Baso # (Auto) PT INR APTT D-Dimer, Quantitative Sodium Potassium Chloride Carbon Dioxide Anion Gap BUN Creatinine Est GFR ( Amer) Est GFR (Non-Af Amer) POC Glucose (mg/dL) Random Glucose Hemoglobin A1c Calcium Phosphorus Magnesium Iron 29 L TIBC 231 L % Saturation 13 L Ferritin Total Bilirubin AST ALT Alkaline Phosphatase Troponin I NT-Pro-B Natriuret Pep Total Protein Albumin Globulin Albumin/Globulin Ratio Triglycerides Cholesterol LDL Cholesterol Direct HDL Cholesterol 25-OH Vitamin D Total Thyroxine (T4) TSH 3rd Generation Urine Color Urine Clarity Urine pH Ur Specific [place] Urine Protein Urine Glucose (UA) Urine Ketones Urine Blood Urine Nitrate Urine Bilirubin Urine Urobilinogen Ur Leukocyte Esterase Urine WBC (Auto) Urine RBC (Auto) Ur Squamous Epith Cells Urine Bacteria Ur Random Creatinine 59.8 U Random Total Protein 322.0 H Urine Microalbumin > 950.0 H Complement C3 Complement C4 06/28/17 06/28/17 14:00 14:03 WBC RBC Hgb Hct MCV MCH MCHC RDW Plt Count MPV Neut % (Auto) Lymph % (Auto) [place] % (Auto) Eos % (Auto) Baso % (Auto) Neut # (Auto) Lymph # (Auto) [place] # (Auto) Eos # (Auto) Baso # (Auto) PT INR APTT 125 H* D D-Dimer, Quantitative Sodium Potassium Chloride Carbon Dioxide Anion Gap BUN Creatinine Est GFR ( Amer) Est GFR (Non-Af Amer) POC Glucose (mg/dL) Random Glucose Hemoglobin A1c Calcium Phosphorus Magnesium Iron TIBC % Saturation Ferritin Total Bilirubin AST ALT Alkaline Phosphatase Troponin I NT-Pro-B Natriuret Pep Total Protein Albumin Globulin Albumin/Globulin Ratio Triglycerides Cholesterol LDL Cholesterol Direct HDL Cholesterol 25-OH Vitamin D Total 20.3 L Thyroxine (T4) TSH 3rd Generation Urine Color Urine Clarity Urine pH Ur Specific [place] Urine Protein Urine Glucose (UA) Urine Ketones Urine Blood Urine Nitrate Urine Bilirubin Urine Urobilinogen Ur Leukocyte Esterase Urine WBC (Auto) Urine RBC (Auto) Ur Squamous Epith Cells Urine Bacteria Ur Random Creatinine U Random Total Protein Urine Microalbumin Complement C3 Complement C4
[2017-06-28] MEDS ORDERED: Ergocalciferol 50,000 Intl Units Cap PO SCH (15:45)
--- NOTE | 2017-06-28 18:46 | CP.PCM.CON ---
History of Present Illness - History of Present Illness History of Present Illness: patient seen/examined. echocardiogram reviewed Normal left ventricular funciton small pericardial effusion lareg pleural effusion. There is thickening of the aortic valve, but no clear vegetation. Blood pressure control. Past Patient History - Past Medical History & Family History Past Medical History?: Yes - Past Social History Smoking Status: Never Smoked - CARDIAC Hx Hypertension: Yes - RENAL Hx Chronic Kidney Disease: Yes - ENDOCRINE/METABOLIC Hx Endocrine Disorders: Yes Hx Diabetes Mellitus Type 2: Yes - MUSCULOSKELETAL/RHEUMATOLOGICAL Hx Falls: No - PSYCHIATRIC Hx Substance Use: No - SURGICAL HISTORY Hx Surgeries: No Meds Allergies/Adverse Reactions: Allergies Allergy/AdvReac Type Severity Reaction Status Date / Time No Known Allergies Allergy Verified 06/27/17 16:01 - Medications Medications: Current Medications Albuterol/Ipratropium (Duoneb 3 Mg/0.5 Mg (3 Ml) Ud) 3 ml INH RQ6 [facility] Last Admin: 06/28/17 13:14 Dose: 3 ml Aspirin (Aspirin Chewable) 81 mg PO DAILY [facility] Last Admin: 06/28/17 10:35 Dose: 81 mg Carvedilol (Coreg) 6.25 mg PO BID [facility] Last Admin: 06/28/17 17:42 Dose: 6.25 mg Dextrose (Dextrose 50% Inj) 0 ml IV STAT PRN; Protocol PRN Reason: Hypoglycemia Protocol Dextrose (Glutose 15) 0 gm PO ONCE PRN; Protocol PRN Reason: Hypoglycemia Protocol Ergocalciferol (Drisdol 50,000 Intl Units Cap) 1 cap PO Q7D [facility] Last Admin: 06/28/17 16:17 Dose: 1 cap Famotidine (Pepcid) 20 mg PO DAILY [facility] Last Admin: 06/28/17 10:35 Dose: 20 mg Ferrous Gluconate (Fergon) 324 mg PO TID [facility] Last Admin: 06/28/17 17:42 Dose: 324 mg Furosemide (Lasix) 80 mg IVP BID [facility] Last Admin: 06/28/17 17:42 Dose: 80 mg Glucagon (Glucagen Diagnostic Kit) 0 mg IM STAT PRN; Protocol PRN Reason: Hypoglycemia Protocol Hydralazine HCl (Apresoline) 50 mg PO QID [facility] Last Admin: 06/28/17 17:42 Dose: 50 mg Hydralazine HCl (Apresoline) 10 mg IVP Q6H PRN PRN Reason: SBP>160 Last Admin: 06/28/17 14:59 Dose: 10 mg Dextrose (Dextrose 5% In Water 1000 Ml) 1,000 mls @ 0 mls/hr IV .Q0M PRN; Protocol; Per Protocol PRN Reason: Hypoglycemia Protocol Ceftriaxone Sodium 1 gm/ (Sodium Chloride) 100 mls @ 100 mls/hr IVPB Q24H [facility] PRN Reason: Protocol Last Admin: 06/28/17 12:46 Dose: 100 mls/hr Insulin Human Isoph/Insulin Regular (Novolin 70/30 (70/30 Units/Ml) 10 Ml) 15 units SC Q12H [facility] Last Admin: 06/28/17 10:37 Dose: 15 units Insulin Human Regular (Novolin R) 0 unit SC ACHS [facility] PRN Reason: Protocol Last Admin: 06/28/17 17:43 Dose: Not Given Vitamin B Complex/Vit C/Folic Acid (Nephro-Matti) 1 tab PO 0800 [facility] Results - Vital Signs Recent Vital Signs: Last Vital Signs Temp 97.9 F 06/28/17 15:00 Pulse 78 06/28/17 15:00 Resp 20 06/28/17 15:00 BP 191/90 H 06/28/17 17:42 Pulse Ox 99 06/28/17 15:00 - Labs Result Diagrams: 06/28/17 07:08 06/28/17 07:08 Labs: Laboratory Results - last 24 hr 06/27/17 06/28/17 06/28/17 21:08 06:31 07:08 WBC 5.2 RBC 3.53 L Hgb 10.1 L Hct 30.3 L MCV 85.9 MCH 28.8 MCHC 33.5 RDW 15.2 H Plt Count 311 MPV 8.4 Neut % (Auto) 66.3 Lymph % (Auto) 21.1 [place] % (Auto) 8.8 Eos % (Auto) 2.0 Baso % (Auto) 1.8 Neut # (Auto) 3.4 Lymph # (Auto) 1.1 [place] # (Auto) 0.5 Eos # (Auto) 0.1 Baso # (Auto) 0.1 PT INR APTT Sodium Potassium Chloride Carbon Dioxide Anion Gap BUN Creatinine Est GFR ( Amer) Est GFR (Non-Af Amer) POC Glucose (mg/dL) 232 H 238 H Random Glucose Hemoglobin A1c Calcium Phosphorus Magnesium Iron TIBC % Saturation Ferritin Total Bilirubin AST ALT Alkaline Phosphatase Troponin I Total Protein Albumin Globulin Albumin/Globulin Ratio Triglycerides Cholesterol LDL Cholesterol Direct HDL Cholesterol Vitamin B12 25-OH Vitamin D Total Folate Thyroxine (T4) TSH 3rd Generation Urine Color Urine Clarity Urine pH Ur Specific [place] Urine Protein Urine Glucose (UA) Urine Ketones Urine Blood Urine Nitrate Urine Bilirubin Urine Urobilinogen Ur Leukocyte Esterase Urine WBC (Auto) Urine RBC (Auto) Ur Squamous Epith Cells Urine Bacteria Ur Random Creatinine U Random Total Protein Urine Microalbumin Complement C3 Complement C4 06/28/17 06/28/17 06/28/17 07:08 07:08 07:08 WBC RBC Hgb Hct MCV MCH MCHC RDW Plt Count MPV Neut % (Auto) Lymph % (Auto) [place] % (Auto) Eos % (Auto) Baso % (Auto) Neut # (Auto) Lymph # (Auto) [place] # (Auto) Eos # (Auto) Baso # (Auto) PT 11.6 INR 1.0 APTT 81 H D Sodium 141 Potassium 4.9 Chloride 105 Carbon Dioxide 23 Anion Gap 17 BUN 39 H Creatinine 3.8 H Est GFR ( Amer) 15 Est GFR (Non-Af Amer) 12 POC Glucose (mg/dL) Random Glucose 267 H Hemoglobin A1c 10.6 H Calcium 8.9 Phosphorus 3.9 Magnesium 2.1 Iron TIBC % Saturation Ferritin Total Bilirubin 0.4 AST 28 ALT 58 H Alkaline Phosphatase 120 Troponin I Total Protein 6.9 Albumin 3.2 L Globulin 3.7 Albumin/Globulin Ratio 0.9 L Triglycerides 60 Cholesterol 220 H LDL Cholesterol Direct 128 HDL Cholesterol 79 H Vitamin B12 25-OH Vitamin D Total Folate Thyroxine (T4) 9.47 TSH 3rd Generation 1.02 Urine Color Urine Clarity Urine pH Ur Specific [place] Urine Protein Urine Glucose (UA) Urine Ketones Urine Blood Urine Nitrate Urine Bilirubin Urine Urobilinogen Ur Leukocyte Esterase Urine WBC (Auto) Urine RBC (Auto) Ur Squamous Epith Cells Urine Bacteria Ur Random Creatinine U Random Total Protein Urine Microalbumin Complement C3 Complement C4 06/28/17 06/28/17 06/28/17 07:08 09:00 11:32 WBC RBC Hgb Hct MCV MCH MCHC RDW Plt Count MPV Neut % (Auto) Lymph % (Auto) [place] % (Auto) Eos % (Auto) Baso % (Auto) Neut # (Auto) Lymph # (Auto) [place] # (Auto) Eos # (Auto) Baso # (Auto) PT INR APTT Sodium Potassium Chloride Carbon Dioxide Anion Gap BUN Creatinine Est GFR ( Amer) Est GFR (Non-Af Amer) POC Glucose (mg/dL) 278 H Random Glucose Hemoglobin A1c Calcium Phosphorus Magnesium Iron TIBC % Saturation Ferritin 37.6 Total Bilirubin AST ALT Alkaline Phosphatase Troponin I 0.0520 Total Protein Albumin Globulin Albumin/Globulin Ratio Triglycerides Cholesterol LDL Cholesterol Direct HDL Cholesterol Vitamin B12 890 25-OH Vitamin D Total Folate 12.8 Thyroxine (T4) TSH 3rd Generation Urine Color Urine Clarity Urine pH Ur Specific [place] Urine Protein Urine Glucose (UA) Urine Ketones Urine Blood Urine Nitrate Urine Bilirubin Urine Urobilinogen Ur Leukocyte Esterase Urine WBC (Auto) Urine RBC (Auto) Ur Squamous Epith Cells Urine Bacteria Ur Random Creatinine U Random Total Protein Urine Microalbumin Complement C3 134.0 Complement C4 37.5 06/28/17 06/28/17 06/28/17 12:02 12:03 12:07 WBC RBC Hgb Hct MCV MCH MCHC RDW Plt Count MPV Neut % (Auto) Lymph % (Auto) [place] % (Auto) Eos % (Auto) Baso % (Auto) Neut # (Auto) Lymph # (Auto) [place] # (Auto) Eos # (Auto) Baso # (Auto) PT INR APTT Sodium Potassium Chloride Carbon Dioxide Anion Gap BUN Creatinine Est GFR ( Amer) Est GFR (Non-Af Amer) POC Glucose (mg/dL) Random Glucose Hemoglobin A1c Calcium Phosphorus Magnesium Iron TIBC % Saturation Ferritin Total Bilirubin AST ALT Alkaline Phosphatase Troponin I Total Protein Albumin Globulin Albumin/Globulin Ratio Triglycerides Cholesterol LDL Cholesterol Direct HDL Cholesterol Vitamin B12 25-OH Vitamin D Total Folate Thyroxine (T4) TSH 3rd Generation Urine Color Yellow Urine Clarity Hazy Urine pH 5.0 Ur Specific [place] 1.009 Urine Protein 3+ H Urine Glucose (UA) 3+ H Urine Ketones Negative Urine Blood 1+ H Urine Nitrate Negative Urine Bilirubin Negative Urine Urobilinogen Normal Ur Leukocyte Esterase Neg Urine WBC (Auto) 6 H Urine RBC (Auto) 1 Ur Squamous Epith Cells 2 Urine Bacteria Few H Ur Random Creatinine 59.8 U Random Total Protein 322.0 H Urine Microalbumin > 950.0 H Complement C3 Complement C4 06/28/17 06/28/17 06/28/17 14:00 14:00 14:03 WBC RBC Hgb Hct MCV MCH MCHC RDW Plt Count MPV Neut % (Auto) Lymph % (Auto) [place] % (Auto) Eos % (Auto) Baso % (Auto) Neut # (Auto) Lymph # (Auto) [place] # (Auto) Eos # (Auto) Baso # (Auto) PT INR APTT 125 H* D Sodium Potassium Chloride Carbon Dioxide Anion Gap BUN Creatinine Est GFR ( Amer) Est GFR (Non-Af Amer) POC Glucose (mg/dL) Random Glucose Hemoglobin A1c Calcium Phosphorus Magnesium Iron 29 L TIBC 231 L % Saturation 13 L Ferritin Total Bilirubin AST ALT Alkaline Phosphatase Troponin I Total Protein Albumin Globulin Albumin/Globulin Ratio Triglycerides Cholesterol LDL Cholesterol Direct HDL Cholesterol Vitamin B12 25-OH Vitamin D Total 20.3 L Folate Thyroxine (T4) TSH 3rd Generation Urine Color Urine Clarity Urine pH Ur Specific [place] Urine Protein Urine Glucose (UA) Urine Ketones Urine Blood Urine Nitrate Urine Bilirubin Urine Urobilinogen Ur Leukocyte Esterase Urine WBC (Auto) Urine RBC (Auto) Ur Squamous Epith Cells Urine Bacteria Ur Random Creatinine U Random Total Protein Urine Microalbumin Complement C3 Complement C4 06/28/17 06/28/17 16:14 16:38 WBC RBC Hgb Hct MCV MCH MCHC RDW Plt Count MPV Neut % (Auto) Lymph % (Auto) [place] % (Auto) Eos % (Auto) Baso % (Auto) Neut # (Auto) Lymph # (Auto) [place] # (Auto) Eos # (Auto) Baso # (Auto) PT INR APTT Sodium Potassium Chloride Carbon Dioxide Anion Gap BUN Creatinine Est GFR ( Amer) Est GFR (Non-Af Amer) POC Glucose (mg/dL) 114 H Random Glucose Hemoglobin A1c Calcium Phosphorus Magnesium Iron TIBC % Saturation Ferritin Total Bilirubin AST ALT Alkaline Phosphatase Troponin I 0.0460 Total Protein Albumin Globulin Albumin/Globulin Ratio Triglycerides Cholesterol LDL Cholesterol Direct HDL Cholesterol Vitamin B12 25-OH Vitamin D Total Folate Thyroxine (T4) TSH 3rd Generation Urine Color Urine Clarity Urine pH Ur Specific [place] Urine Protein Urine Glucose (UA) Urine Ketones Urine Blood Urine Nitrate Urine Bilirubin Urine Urobilinogen Ur Leukocyte Esterase Urine WBC (Auto) Urine RBC (Auto) Ur Squamous Epith Cells Urine Bacteria Ur Random Creatinine U Random Total Protein Urine Microalbumin Complement C3 Complement C4
[2017-06-29] MEDS: Albuterol-Ipratrop 3 mg / 0.5 (3 ml) UD INH SCH ×4 (01:07→19:52)
[2017-06-29 07:13] LABS: BASO # 0.1 K/uL (0.0-0.2); BASO % 0.9 % (0.0-2.0); EOS # 0.2 K/uL (0.0-0.7); HEMOGLOBIN 10.5 g/dL (11.0-16.0); LYMPH # 0.9 K/uL (1.0-4.3); LYMPH % 13.6 % (20.0-40.0); MEAN CORPUSCULAR HEMOGLOBIN 29.1 pg (27.0-31.0); MEAN CORPUSCULAR HGB CONC 33.9 g/dL (33.0-37.0); MEAN PLATELET VOLUME 8.3 fL (7.2-11.7); MONO # 0.5 K/uL (0.0-0.8); MONO % 7.8 % (0.0-10.0); NEUT # 4.8 K/uL (1.8-7.0); NEUT % 74.7 % (50.0-75.0); NRBC % 0.1 % (0.0-2.0); RBC 3.61 Mil/uL (3.80-5.20); WHITE BLOOD COUNT 6.4 K/uL (4.8-10.8)
--- NOTE | 2017-06-29 07:16 | CP.PCM.PN ---
<Klever Wright S - Last Filed: 06/29/17 12:37> Subjective - Date & Time of Evaluation Date of Evaluation: 06/29/17 Time of Evaluation: 07:30 - Subjective Subjective: Medicine progress note for Dr. Hameed Patient seen and examined. Patient states that she is doing well today. She was able to sleep comfortably without the BiPAP. Patient denies any complaint at this time, stating that her leg edema is improved. Objective - Vital Signs/Intake and Output Vital Signs (last 24 hours): Temp Pulse Resp BP Pulse Ox 98.7 F 82 20 177/78 H 96 06/29/17 05:48 06/29/17 05:48 06/29/17 05:48 06/29/17 05:48 06/29/17 05:48 Intake and Output: 06/29/17 06/29/17 06:59 18:59 Intake Total 480 Balance 480 - Medications Medications: Current Medications Albuterol/Ipratropium (Duoneb 3 Mg/0.5 Mg (3 Ml) Ud) 3 ml INH RQ6 [facility] Last Admin: 06/29/17 01:07 Dose: Not Given Aspirin (Aspirin Chewable) 81 mg PO DAILY [facility] Last Admin: 06/28/17 10:35 Dose: 81 mg Carvedilol (Coreg) 6.25 mg PO BID [facility] Last Admin: 06/28/17 17:42 Dose: 6.25 mg Dextrose (Dextrose 50% Inj) 0 ml IV STAT PRN; Protocol PRN Reason: Hypoglycemia Protocol Dextrose (Glutose 15) 0 gm PO ONCE PRN; Protocol PRN Reason: Hypoglycemia Protocol Ergocalciferol (Drisdol 50,000 Intl Units Cap) 1 cap PO Q7D [facility] Last Admin: 06/28/17 16:17 Dose: 1 cap Famotidine (Pepcid) 20 mg PO DAILY [facility] Last Admin: 06/28/17 10:35 Dose: 20 mg Ferrous Gluconate (Fergon) 324 mg PO TID [facility] Last Admin: 06/28/17 17:42 Dose: 324 mg Furosemide (Lasix) 80 mg IVP BID [facility] Last Admin: 06/28/17 17:42 Dose: 80 mg Glucagon (Glucagen Diagnostic Kit) 0 mg IM STAT PRN; Protocol PRN Reason: Hypoglycemia Protocol Hydralazine HCl (Apresoline) 50 mg PO QID [facility] Last Admin: 06/28/17 22:04 Dose: 50 mg Hydralazine HCl (Apresoline) 10 mg IVP Q6H PRN PRN Reason: SBP>160 Last Admin: 06/29/17 01:09 Dose: 10 mg Dextrose (Dextrose 5% In Water 1000 Ml) 1,000 mls @ 0 mls/hr IV .Q0M PRN; Protocol; Per Protocol PRN Reason: Hypoglycemia Protocol Ceftriaxone Sodium 1 gm/ (Sodium Chloride) 100 mls @ 100 mls/hr IVPB Q24H [facility] PRN Reason: Protocol Last Admin: 06/28/17 12:46 Dose: 100 mls/hr Insulin Human Isoph/Insulin Regular (Novolin 70/30 (70/30 Units/Ml) 10 Ml) 15 units SC Q12H [facility] Last Admin: 06/28/17 22:04 Dose: 15 units Insulin Human Regular (Novolin R) 0 unit SC ACHS [facility] PRN Reason: Protocol Last Admin: 06/28/17 22:05 Dose: Not Given Vitamin B Complex/Vit C/Folic Acid (Nephro-Matti) 1 tab PO 0800 [facility] - Labs Labs: 06/28/17 07:08 06/28/17 07:08 PT 11.6 SECONDS (9.7-12.2) 06/28/17 07:08 INR 1.0 06/28/17 07:08 APTT 125 SECONDS (21-34) H* D 06/28/17 14:03 - Additional Findings Additional findings: - Constitutional Appears: Cachectic, Chronically Ill - Head Exam Head Exam: ATRAUMATIC, NORMAL INSPECTION - Eye Exam Eye Exam: EOMI, Normal appearance, PERRL - ENT Exam ENT Exam: Mucous Membranes Moist - Respiratory Exam Respiratory Exam: Decreased Breath Sounds (left lower lung decreased lung sounds ), NORMAL BREATHING PATTERN. absent: Rales, Rhonchi, Wheezes, Stridor - Cardiovascular Exam Cardiovascular Exam: REGULAR RHYTHM, +S1, +S2. absent: JVD - GI/Abdominal Exam GI & Abdominal Exam: Normal Bowel Sounds, Soft. absent: Tenderness - Extremities Exam Extremities exam: Positive for: normal capillary refill, pedal edema (1+ pitting edema bilateral), pedal pulses present. Negative for: calf tenderness, tenderness - Neurological Exam Neurological exam: Alert, Oriented x3 - Psychiatric Exam Psychiatric exam: Normal Affect, Normal Mood - Skin Skin Exam: Dry, Intact, Normal Color Assessment and Plan - Assessment and Plan (Free Text) Plan: 1.) Shortness of breath D-dimer: 449 - VQ Scan: low probability for PE - Heparin drip discontinued BiPAP prn Lasix 80 mg IV BID chest x-ray: pulmonary vascular congestion changes with bilateral lower lobe alveolar-type infiltrates atelectasis and bilateral effusions Monitor I/O f/u Chest CT w.o. contrast to assess effusions and check for malignancy 2.) New onset CHF Cardiology Consult: Dr. Granda --> help appreciated PrBnP: [id number] Lipid Panel shows TGs 60, LDL 128, HDL 79 f/u ECHO Avoiding MELISA/ARB due to renal failure Coreg 12.5 mg PO BID 3.) Bilateral LE Swelling Lasix 80mg IV BID Monitory I/O Fluid restriction 1000ml Venous dopplers negative for DVT 4.) History of HTN Monitor BP Hydralazine 10mg IV Q6 prn Hydrazaline 50mg po QID Coreg 6.25 mg PO BID increased to 12.5 mg PO BID 5.) History of DM Type II Accuchecks ISS Hypoglycemia protocol Hemoglobin A1c 10.6 NPH/Regular 15 units SC Q12H increased to 20 units SC Q12H 6.) History of Chronic Kidney Injury Elevated BUN/Cr likely due to long-standing HTN and DM Nephro Consult: Dr. Mcdowell, help appreciated Renal ultrasound shows medical renal disease f/u immunology workup to ascertain for other etiologies of kidney disease 7.) Hyperkalemia possibly secondary to chronic kidney injury Continue to monitor 8.) UTI Rocephin 1 gm IV daily started on 06/28/17 9.) Prophylaxis Heparin drip discontinued. Due to elevated PTT, will wait until tomorrow before starting Heparin SC Pepcid 20mg daily Disposition: Patient was walked around the halls, and although she was not short of breath, she did appear a little dizzy by the end. Awaiting further renal workup for other possible causes of kidney failure. Both the Coreg and the NPH/Regular insulin were increased in dosages. Discussed with Dr. Zari Wright PGY-1 <Giacomo Hameed - Last Filed: 06/29/17 14:14> Objective - Vital Signs/Intake and Output Vital Signs (last 24 hours): Temp Pulse Resp BP Pulse Ox 97.6 F 85 20 179/82 H 100 06/29/17 08:20 06/29/17 08:20 06/29/17 08:20 06/29/17 11:05 06/29/17 08:20 Intake and Output: 06/29/17 06/29/17 06:59 18:59 Intake Total 500 Balance 500 - Medications Medications: Current Medications Albuterol/Ipratropium (Duoneb 3 Mg/0.5 Mg (3 Ml) Ud) 3 ml INH RQ6 [facility] Last Admin: 06/29/17 13:03 Dose: 3 ml Aspirin (Aspirin Chewable) 81 mg PO DAILY [facility] Last Admin: 06/29/17 10:09 Dose: 81 mg Carvedilol (Coreg) 12.5 mg PO BID [facility] Last Admin: 06/29/17 11:05 Dose: 12.5 mg Dextrose (Dextrose 50% Inj) 0 ml IV STAT PRN; Protocol PRN Reason: Hypoglycemia Protocol Dextrose (Glutose 15) 0 gm PO ONCE PRN; Protocol PRN Reason: Hypoglycemia Protocol Ergocalciferol (Drisdol 50,000 Intl Units Cap) 1 cap PO Q7D [facility] Last Admin: 06/28/17 16:17 Dose: 1 cap Famotidine (Pepcid) 20 mg PO DAILY [facility] Last Admin: 06/29/17 10:09 Dose: 20 mg Ferrous Gluconate (Fergon) 324 mg PO TID [facility] Last Admin: 06/29/17 14:04 Dose: 324 mg Furosemide (Lasix) 80 mg IVP BID [facility] Last Admin: 06/29/17 10:08 Dose: 80 mg Glucagon (Glucagen Diagnostic Kit) 0 mg IM STAT PRN; Protocol PRN Reason: Hypoglycemia Protocol Hydralazine HCl (Apresoline) 50 mg PO QID [facility] Last Admin: 06/29/17 14:04 Dose: 50 mg Hydralazine HCl (Apresoline) 10 mg IVP Q6H PRN PRN Reason: SBP>160 Last Admin: 06/29/17 08:31 Dose: 10 mg Dextrose (Dextrose 5% In Water 1000 Ml) 1,000 mls @ 0 mls/hr IV .Q0M PRN; Protocol; Per Protocol PRN Reason: Hypoglycemia Protocol Ceftriaxone Sodium 1 gm/ (Sodium Chloride) 100 mls @ 100 mls/hr IVPB Q24H [facility] PRN Reason: Protocol Last Admin: 06/29/17 12:15 Dose: 100 mls/hr Insulin Human Isoph/Insulin Regular (Novolin 70/30 (70/30 Units/Ml) 10 Ml) 20 units SC Q12H [facility] Insulin Human Regular (Novolin R) 0 unit SC ACHS [facility] PRN Reason: Protocol Last Admin: 06/29/17 12:15 Dose: 3 unit Vitamin B Complex/Vit C/Folic Acid (Nephro-Matti) 1 tab PO 0800 [facility] Last Admin: 06/29/17 08:31 Dose: 1 tab - Labs Labs: 06/29/17 06:58 06/29/17 06:58 PT 11.6 SECONDS (9.7-12.2) 06/28/17 07:08 INR 1.0 06/28/17 07:08 APTT 125 SECONDS (21-34) H* D 06/28/17 14:03 Attending/Attestation - Attestation I have personally seen and examined this patient.: Yes I have fully participated in the care of the patient.: Yes I have reviewed all pertinent clinical information, including history, physical exam and plan: Yes Notes (Text): Medical attending: Patient was seen and examined by me, agrees the above note by the biomedical service engineer. Today the patient does look better than the previous days that we've seen her. She has been receiving a lot of IV Lasix. On exam the swelling and pitting edema that was in her mid thighs as well as anterior shins as well as bilateral feet have decreased significantly. She was very happy with the decrease in the swelling in her lower extremities. On exam she was not short of breath at rest. We also had her stand up and walk around with us. She was able to do so without any difficulty. She was able to walk out to the nursing station. While she was walking we looked at the telemetry reading and it was sinus in the high 90s and low 100s. Her currently pending on echo at this moment. Review of her blood pressure shows that it still significantly elevated. Her to increase her Coreg today to 12.5 twice a day, tomorrow we can increase the hydralazine if needed Her Accu-Cheks have been okay, 114, 237, 110, 271 - is this time will continue the current regimen that she is on. Regards to her CKD she did undergo ultrasound which is suggestive of medical renal disease probably from long-standing uncontrolled hypertension and diabetes. Her currently pending a lot of lab work with regards to her CKD Giacomo Hameed
[2017-06-29 07:51] LABS: ALB/GLOB RATIO 0.9 (1.0-2.1); ALBUMIN 3.3 g/dL (3.5-5.0); ALT/SGPT 44 U/L (9-52); AST/SGOT 26 U/L (14-36); BLOOD UREA NITROGEN 41 mg/dL (7-17); CALCIUM 9.1 mg/dl (8.6-10.4); GFR AFRICAN-AMERICAN 13; GFR NON-AFRICAN AMERICAN 11
[2017-06-29] MEDS: (Novolin R) Insulin Human Regular 100 units/ml vial SC SCH ×4 (08:03→21:28)
[2017-06-29 08:05] LABS: HEPATITIS B CORE AB NEGATIVE (NEGATIVE); HEPATITIS B SURFACE AG Negative (NEGATIVE)
[2017-06-29 08:17] LABS: HEPATITIS C ANTIBODY NEGATIVE (NEGATIVE)
[2017-06-29] MEDS: Multivitamin Vitamin B Complex (Nephro-Vite) Tab PO SCH (08:31)
[2017-06-29] MEDS: (Novolin 70/30) NPH/Regular 70/30 Units/ml 10 ml vial SC SCH ×2 (10:10→21:43)
--- NOTE | 2017-06-29 12:25 | CT ---
PROCEDURE: CT Chest without contrast HISTORY: assess pleural effusion and possible malignancy COMPARISON: None. TECHNIQUE: Contiguous axial images were obtained through the chest without intravenous contrast enhancement. Sagittal and coronal reconstructions were performed. Radiation dose (DLP): 163.07 mGy-cm. This CT exam was performed using one or more of the following dose reduction techniques: Automated exposure control, adjustment of the mA and/or kV according to patient size, and/or use of iterative reconstruction technique. FINDINGS: LUNGS: No pulmonary infiltrate. No pulmonary mass. Bilateral lower lobe compressive atelectasis secondary to pleural effusions. MEDIASTINUM: Unremarkable thoracic aorta. No aneurysm. Mild cardiomegaly. No pericardial effusion. Main pulmonary artery unremarkable. No vascular congestion. No lymphadenopathy. PLEURA: Mild moderate bilateral pleural effusion. No pneumothorax. BONES: No fracture. No destructive lesion. UPPER ABDOMEN: Punctate splenic calcifications consistent with calcified granuloma. OTHER FINDINGS: None. IMPRESSION: Mild to moderate bilateral pleural effusion with lower lobe compressive atelectasis. Mild cardiomegaly. Otherwise unremarkable.
[2017-06-29] MEDS ORDERED: (Novolin 70/30) NPH/Regular 70/30 Units/ml 10 ml vial SC SCH (12:40)
--- NOTE | 2017-06-29 13:48 | CP.PCM.CON ---
History of Present Illness - History of Present Illness History of Present Illness: Podiatry Consult Note- Dr. Keane This is a 61 yo female patient w/ pmhx DM, who was seen at bedside today with Dr. Keane present following request for podiatry consult. She states that her legs often swell and she has formed a blister to her right foot over the past week. Reports minimal pain. She denies any f/n/v/c/sob/cp/ weakness at this time. No other pedal complaints. Review of Systems - Review of Systems Review of Systems: all systems reviewed and found neg outside hpi Past Patient History - Past Medical History & Family History Past Medical History?: Yes - Past Social History Smoking Status: Never Smoked - CARDIAC Hx Hypertension: Yes - RENAL Hx Chronic Kidney Disease: Yes - ENDOCRINE/METABOLIC Hx Endocrine Disorders: Yes Hx Diabetes Mellitus Type 2: Yes - MUSCULOSKELETAL/RHEUMATOLOGICAL Hx Falls: No - PSYCHIATRIC Hx Substance Use: No - SURGICAL HISTORY Hx Surgeries: No Meds Allergies/Adverse Reactions: Allergies Allergy/AdvReac Type Severity Reaction Status Date / Time No Known Allergies Allergy Verified 06/27/17 16:01 - Medications Medications: Current Medications Albuterol/Ipratropium (Duoneb 3 Mg/0.5 Mg (3 Ml) Ud) 3 ml INH RQ6 COUNT INCLUDES [facility] Last Admin: 06/29/17 13:03 Dose: 3 ml Aspirin (Aspirin Chewable) 81 mg PO DAILY COUNT INCLUDES [facility] Last Admin: 06/29/17 10:09 Dose: 81 mg Carvedilol (Coreg) 12.5 mg PO BID COUNT INCLUDES [facility] Last Admin: 06/29/17 11:05 Dose: 12.5 mg Dextrose (Dextrose 50% Inj) 0 ml IV STAT PRN; Protocol PRN Reason: Hypoglycemia Protocol Dextrose (Glutose 15) 0 gm PO ONCE PRN; Protocol PRN Reason: Hypoglycemia Protocol Ergocalciferol (Drisdol 50,000 Intl Units Cap) 1 cap PO Q7D COUNT INCLUDES [facility] Last Admin: 06/28/17 16:17 Dose: 1 cap Famotidine (Pepcid) 20 mg PO DAILY COUNT [facility]CLUDES [facility] Last Admin: 06/29/17 10:09 Dose: 20 mg Ferrous Gluconate (Fergon) 324 mg PO TID COUNT INCLUDES [facility] Last Admin: 06/29/17 10:09 Dose: 324 mg Furosemide (Lasix) 80 mg IVP BID COUNT INCLUDES [facility] Last Admin: 06/29/17 10:08 Dose: 80 mg Glucagon (Glucagen Diagnostic Kit) 0 mg IM STAT PRN; Protocol PRN Reason: Hypoglycemia Protocol Hydralazine HCl (Apresoline) 50 mg PO QID [facility] Last Admin: 06/29/17 10:09 Dose: 50 mg Hydralazine HCl (Apresoline) 10 mg IVP Q6H PRN PRN Reason: SBP>160 Last Admin: 06/29/17 08:31 Dose: 10 mg Dextrose (Dextrose 5% In Water 1000 Ml) 1,000 mls @ 0 mls/hr IV .Q0M PRN; Protocol; Per Protocol PRN Reason: Hypoglycemia Protocol Ceftriaxone Sodium 1 gm/ (Sodium Chloride) 100 mls @ 100 mls/hr IVPB Q24H [facility] PRN Reason: Protocol Last Admin: 06/29/17 12:15 Dose: 100 mls/hr Insulin Human Isoph/Insulin Regular (Novolin 70/30 (70/30 Units/Ml) 10 Ml) 20 units SC Q12H [facility] Insulin Human Regular (Novolin R) 0 unit SC ACHS [facility] PRN Reason: Protocol Last Admin: 06/29/17 12:15 Dose: 3 unit Vitamin B Complex/Vit C/Folic Acid (Nephro-Matti) 1 tab PO 0800 [facility] Last Admin: 06/29/17 08:31 Dose: 1 tab Physical Exam - Constitutional Appears: Non-toxic, No Acute Distress - Extremities Exam Extremities exam: Negative for: calf tenderness Additional comments: B/L lower ext exam: VASC- pedal pulses are palpable bl, skin temp wnl bl, cap refill < 3 sec to all digits, 2+ pitting edema noted to dorsum of feet b/l NEURO- gross and protective pedal sensation intact DERM- 4x5 superficial ulcer noted to dorsum of right foot (s/p [place]), neg surrounding erythema, neg PTB , neg malodor, neg signs infection MSK- neg tenderness to palpation of wound, MMT is 5/5 all directions - Neurological Exam Neurological exam: Alert, CN II-XII Intact, Oriented x3 - Psychiatric Exam Psychiatric exam: Normal Affect, Normal Mood Results - Vital Signs Recent Vital Signs: Last Vital Signs Temp 97.6 F 06/29/17 08:20 Pulse 85 06/29/17 08:20 Resp 20 06/29/17 08:20 BP 179/82 H 06/29/17 11:05 Pulse Ox 100 06/29/17 08:20 - Labs Result Diagrams: 06/29/17 06:58 06/29/17 06:58 Labs: Laboratory Results - last 24 hr 06/28/17 06/28/17 06/28/17 07:08 09:00 14:00 WBC RBC Hgb Hct MCV MCH MCHC RDW Plt Count MPV Neut % (Auto) Lymph % (Auto) [place] % (Auto) Eos % (Auto) Baso % (Auto) Neut # (Auto) Lymph # (Auto) [place] # (Auto) Eos # (Auto) Baso # (Auto) APTT Sodium Potassium Chloride Carbon Dioxide Anion Gap BUN Creatinine Est GFR ( Amer) Est GFR (Non-Af Amer) POC Glucose (mg/dL) Random Glucose Calcium Phosphorus Magnesium Iron 29 L TIBC 231 L % Saturation 13 L Ferritin 37.6 Total Bilirubin AST ALT Alkaline Phosphatase Troponin I 0.0520 Total Protein Total Protein (PEP) Albumin Globulin Albumin/Globulin Ratio Vitamin B12 890 25-OH Vitamin D Total Folate 12.8 PTH Intact Whole Molec Complement C3 134.0 Complement C4 37.5 Hep Bs Antigen Hep Bs Antibody Hep B Core IgM Ab Hepatitis C Antibody HIV 1&2 Antibody Screen 06/28/17 06/28/17 06/28/17 14:00 14:00 14:00 WBC RBC Hgb Hct MCV MCH MCHC RDW Plt Count MPV Neut % (Auto) Lymph % (Auto) [place] % (Auto) Eos % (Auto) Baso % (Auto) Neut # (Auto) Lymph # (Auto) [place] # (Auto) Eos # (Auto) Baso # (Auto) APTT Sodium Potassium Chloride Carbon Dioxide Anion Gap BUN Creatinine Est GFR ( Amer) Est GFR (Non-Af Amer) POC Glucose (mg/dL) Random Glucose Calcium Phosphorus Magnesium Iron TIBC % Saturation Ferritin Total Bilirubin AST ALT Alkaline Phosphatase Troponin I Total Protein Total Protein (PEP) 6.6 Albumin Globulin Albumin/Globulin Ratio Vitamin B12 25-OH Vitamin D Total 20.3 L Folate PTH Intact Whole Molec 99 H Complement C3 Complement C4 Hep Bs Antigen Hep Bs Antibody Hep B Core IgM Ab Hepatitis C Antibody HIV 1&2 Antibody Screen 06/28/17 06/28/17 06/28/17 14:03 16:14 16:38 WBC RBC Hgb Hct MCV MCH MCHC RDW Plt Count MPV Neut % (Auto) Lymph % (Auto) [place] % (Auto) Eos % (Auto) Baso % (Auto) Neut # (Auto) Lymph # (Auto) [place] # (Auto) Eos # (Auto) Baso # (Auto) APTT 125 H* D Sodium Potassium Chloride Carbon Dioxide Anion Gap BUN Creatinine Est GFR ( Amer) Est GFR (Non-Af Amer) POC Glucose (mg/dL) 114 H Random Glucose Calcium Phosphorus Magnesium Iron TIBC % Saturation Ferritin Total Bilirubin AST ALT Alkaline Phosphatase Troponin I 0.0460 Total Protein Total Protein (PEP) Albumin Globulin Albumin/Globulin Ratio Vitamin B12 25-OH Vitamin D Total Folate PTH Intact Whole Molec Complement C3 Complement C4 Hep Bs Antigen Hep Bs Antibody Hep B Core IgM Ab Hepatitis C Antibody HIV 1&2 Antibody Screen 06/28/17 06/29/17 06/29/17 20:57 06:37 06:58 WBC 6.4 RBC 3.61 L Hgb 10.5 L Hct 31.0 L MCV 86.0 MCH 29.1 MCHC 33.9 RDW 15.0 H Plt Count 353 MPV 8.3 Neut % (Auto) 74.7 Lymph % (Auto) 13.6 L [place] % (Auto) 7.8 Eos % (Auto) 3.0 Baso % (Auto) 0.9 Neut # (Auto) 4.8 Lymph # (Auto) 0.9 L [place] # (Auto) 0.5 Eos # (Auto) 0.2 Baso # (Auto) 0.1 APTT Sodium Potassium Chloride Carbon Dioxide Anion Gap BUN Creatinine Est GFR ( Amer) Est GFR (Non-Af Amer) POC Glucose (mg/dL) 237 H 110 Random Glucose Calcium Phosphorus Magnesium Iron TIBC % Saturation Ferritin Total Bilirubin AST ALT Alkaline Phosphatase Troponin I Total Protein Total Protein (PEP) Albumin Globulin Albumin/Globulin Ratio Vitamin B12 25-OH Vitamin D Total Folate PTH Intact Whole Molec Complement C3 Complement C4 Hep Bs Antigen Hep Bs Antibody Hep B Core IgM Ab Hepatitis C Antibody HIV 1&2 Antibody Screen 06/29/17 06/29/17 06/29/17 06:58 06:58 06:58 WBC RBC Hgb Hct MCV MCH MCHC RDW Plt Count MPV Neut % (Auto) Lymph % (Auto) [place] % (Auto) Eos % (Auto) Baso % (Auto) Neut # (Auto) Lymph # (Auto) [place] # (Auto) Eos # (Auto) Baso # (Auto) APTT Sodium 143 Potassium 4.6 Chloride 103 Carbon Dioxide 26 Anion Gap 19 BUN 41 H Creatinine 4.2 H Est GFR ( Amer) 13 Est GFR (Non-Af Amer) 11 POC Glucose (mg/dL) Random Glucose 117 H Calcium 9.1 Phosphorus 4.5 Magnesium 2.0 Iron TIBC % Saturation Ferritin Total Bilirubin 0.3 AST 26 ALT 44 Alkaline Phosphatase 102 Troponin I Total Protein 7.0 Total Protein (PEP) Albumin 3.3 L Globulin 3.7 Albumin/Globulin Ratio 0.9 L Vitamin B12 25-OH Vitamin D Total Folate PTH Intact Whole Molec Complement C3 Complement C4 Hep Bs Antigen Negative Hep Bs Antibody Negative Hep B Core IgM Ab Negative Hepatitis C Antibody Negative HIV 1&2 Antibody Screen 06/29/17 06/29/17 06:58 11:54 WBC RBC Hgb Hct MCV MCH MCHC RDW Plt Count MPV Neut % (Auto) Lymph % (Auto) [place] % (Auto) Eos % (Auto) Baso % (Auto) Neut # (Auto) Lymph # (Auto) [place] # (Auto) Eos # (Auto) Baso # (Auto) APTT Sodium Potassium Chloride Carbon Dioxide Anion Gap BUN Creatinine Est GFR ( Amer) Est GFR (Non-Af Amer) POC Glucose (mg/dL) 271 H Random Glucose Calcium Phosphorus Magnesium Iron TIBC % Saturation Ferritin Total Bilirubin AST ALT Alkaline Phosphatase Troponin I Total Protein Total Protein (PEP) Albumin Globulin Albumin/Globulin Ratio Vitamin B12 25-OH Vitamin D Total Folate PTH Intact Whole Molec Complement C3 Complement C4 Hep Bs Antigen Hep Bs Antibody Hep B Core IgM Ab Hepatitis C Antibody HIV 1&2 Antibody Screen Negative Assessment & Plan - Assessment and Plan (Free Text) Assessment: 61 yo diabetic female with ulceration to right foot likely 2/2 acute CHF exacerbation/ lower extremity edema Plan: Pt S&E with attending Dr. Keane present chart, labs and vitals reviewed: afebrile, neg leukocytosis right foot wound cleansed with saline and dressed with betadine, DSD stable per podiatry will follow
--- NOTE | 2017-06-29 16:46 | CP.PCM.PN ---
Subjective - Date & Time of Evaluation Date of Evaluation: 06/29/17 Time of Evaluation: 16:46 - Subjective Subjective: Nephrology Consultation: Assessment: stable Nephrotic syndrome with fluid overload Acute Kidney Injury (N17.9) versus likely progressive underlying CKD Diabetic chronic Kidney Disease (E11.22) Hypertensive Chronic Kidney Disease (I12.9) with HTN urgency ? Chronic Kidney Disease (N18.5) Stage 5 with 5 gm proteinuria (R80.9) likely due to DM Anemia (D64.9), Hyperphosphatemia (E83.39), Secondary Hyperparathyroidism (E21.1 ), HTN (I12.9) non compliance to meds and follow up Plan No acute need for renal replacement therapy at this time. Hypertension control with meds as ordered. Patient not on ACEI/ARB due to advanced renal insuff. added coreg 6.25 mg bid. also on hydralazine Monitor Input/Output, daily weights and renal function with basic metabolic panel diuresis with IV lasix 80 mg bid add iron supplements, MVI and weekly Vitamin D Check urine analysis, spot protein/creatinine and albumin/creatinine ratio, renal sonogram. Check for 25-OH vitamin D, iPTH, phosphorus level Check GN work up as C3, C4, CANDY, Anti dsDNA, HIV/Hep B and Hep C serology anemia work up with serum protein electrophoresis with immunofixation, free light chain assay, iron studies compliance to meds and follow up reinforced once stable, consider age appropriate malignancy screening Dose meds/antibiotics for reduced GFR. Avoid fleets enema/magnesium based laxatives. Avoid nephrotoxins/NSAIDs/ iodinated contrast (unless needed emergently) Glycemic control Further work up/management as per primary team Thanks for allowing me to participate in care of your patient. Will follow patient with you. Please call if any Qs. d/w team. Dr Roque Ruth Office: [phone] Chief Complaint; leg swelling and SOB HPI: Pt is a 61 F with hx of diabetes Mellitus (>20 years), hypertension (>20 years), kidney disease for few years, not taking meds for last 3 years and no followups presented with complaints of SOB and worsening legs swelling for last 1 week Denies OTC/herbal meds or NSAIDs No recent iodinated contrast exposure. No obvious episodes of low BP. she feels that had lost weight, don't know how much pt says she was told in [place] few years ago that kidney was damaged due to DM /HTN ROS: Cardiovascular: No chest pain. Pulmonary: improved shortness of breath Gastrointestinal: denies abdominal pain No nausea. No vomiting. Genitourinary: No pain while urinating. Denies blood in urine. All other negative Physical Examination: General Appearance: Comfortable, in no acute respiratory distress, co-operative . facial muscle wasting + Vitals reviewed and noted as below Head; Atraumatic, normocephalic ENT: no ulcers no thrush. Tongue is midline. Oropharynx: no rash or ulcers. EYES: Pupils are equal, round and reactive to light accommodation. Eye muscles and extraocular movement intact. Sclera is anicteric. Neck; supple no lymphadenopathy, no thyromegaly or bruit Lungs: Normal respiratory rate/effort. Breath sounds bilateral equal and decreased at bases Heart: Normal rate. s1s2 normal. No rub or gallop. Extremities: 2+ edema. No varicose veins Neurological: Patient is alert, awake and oriented to person, place and time. No focal deficit. Strength bilateral appropriate and equal Skin: Warm and dry. Normal turgor. No rash. Palpitation: Normal elasticity for age Abdomen: Abdomen is soft. Bowel sounds +. There is no abdominal tenderness, no guarding/rigidity no organomegaly Psych: lack insight and has normal affect/mood MSK: no joint tenderness or swelling. Digits and nails normal, no deformity : kidney or bladder not palpable Labs/imaging reviewed. Past medical history, past surgical history, family history, social history, allergy reviewed and noted as below Family hx: no hx of CKD. Rest non-contributory Objective - Vital Signs/Intake and Output Vital Signs (last 24 hours): Temp Pulse Resp BP Pulse Ox 97.9 F 74 20 171/78 H 98 06/29/17 15:00 06/29/17 15:00 06/29/17 15:00 06/29/17 15:00 06/29/17 15:00 Intake and Output: 06/29/17 06/29/17 06:59 18:59 Intake Total 500 Balance 500 - Medications Medications: Current Medications Albuterol/Ipratropium (Duoneb 3 Mg/0.5 Mg (3 Ml) Ud) 3 ml INH RQ6 [facility] Last Admin: 06/29/17 13:03 Dose: 3 ml Aspirin (Aspirin Chewable) 81 mg PO DAILY [facility] Last Admin: 06/29/17 10:09 Dose: 81 mg Carvedilol (Coreg) 12.5 mg PO BID [facility] Last Admin: 06/29/17 11:05 Dose: 12.5 mg Dextrose (Dextrose 50% Inj) 0 ml IV STAT PRN; Protocol PRN Reason: Hypoglycemia Protocol Dextrose (Glutose 15) 0 gm PO ONCE PRN; Protocol PRN Reason: Hypoglycemia Protocol Ergocalciferol (Drisdol 50,000 Intl Units Cap) 1 cap PO Q7D [facility] Last Admin: 06/28/17 16:17 Dose: 1 cap Famotidine (Pepcid) 20 mg PO DAILY [facility] Last Admin: 06/29/17 10:09 Dose: 20 mg Ferrous Gluconate (Fergon) 324 mg PO TID [facility] Last Admin: 06/29/17 14:04 Dose: 324 mg Furosemide (Lasix) 80 mg IVP BID [facility] Last Admin: 06/29/17 10:08 Dose: 80 mg Glucagon (Glucagen Diagnostic Kit) 0 mg IM STAT PRN; Protocol PRN Reason: Hypoglycemia Protocol Hydralazine HCl (Apresoline) 50 mg PO QID [facility] Last Admin: 06/29/17 14:04 Dose: 50 mg Hydralazine HCl (Apresoline) 10 mg IVP Q6H PRN PRN Reason: SBP>160 Last Admin: 06/29/17 08:31 Dose: 10 mg Dextrose (Dextrose 5% In Water 1000 Ml) 1,000 mls @ 0 mls/hr IV .Q0M PRN; Protocol; Per Protocol PRN Reason: Hypoglycemia Protocol Ceftriaxone Sodium 1 gm/ (Sodium Chloride) 100 mls @ 100 mls/hr IVPB Q24H [facility] PRN Reason: Protocol Last Admin: 06/29/17 12:15 Dose: 100 mls/hr Insulin Human Isoph/Insulin Regular (Novolin 70/30 (70/30 Units/Ml) 10 Ml) 20 units SC Q12H [facility] Insulin Human Regular (Novolin R) 0 unit SC ACHS [facility] PRN Reason: Protocol Last Admin: 06/29/17 12:15 Dose: 3 unit Vitamin B Complex/Vit C/Folic Acid (Nephro-Matti) 1 tab PO 0800 [facility] Last Admin: 06/29/17 08:31 Dose: 1 tab - Labs Labs: 06/29/17 06:58 06/29/17 06:58 PT 11.6 SECONDS (9.7-12.2) 06/28/17 07:08 INR 1.0 06/28/17 07:08 APTT 125 SECONDS (21-34) H* D 06/28/17 14:03
[2017-06-30] MEDS: Albuterol-Ipratrop 3 mg / 0.5 (3 ml) UD INH SCH ×4 (01:25→20:17)
--- NOTE | 2017-06-30 06:35 | CP.PCM.PN ---
<Klever Wright - Last Filed: 06/30/17 06:57> Subjective - Date & Time of Evaluation Date of Evaluation: 06/30/17 Time of Evaluation: 05:40 - Subjective Subjective: Medicine progress note for Dr. Hameed Patient seen and examined. Objective - Vital Signs/Intake and Output Vital Signs (last 24 hours): Temp Pulse Resp BP Pulse Ox 97.5 F L 76 20 175/84 H 98 06/30/17 04:00 06/30/17 04:00 06/30/17 04:00 06/30/17 04:00 06/29/17 23:35 - Medications Medications: Current Medications Albuterol/Ipratropium (Duoneb 3 Mg/0.5 Mg (3 Ml) Ud) 3 ml INH RQ6 [facility] Last Admin: 06/30/17 01:25 Dose: Not Given Aspirin (Aspirin Chewable) 81 mg PO DAILY [facility] Last Admin: 06/29/17 10:09 Dose: 81 mg Carvedilol (Coreg) 12.5 mg PO BID [facility] Last Admin: 06/29/17 17:38 Dose: 12.5 mg Dextrose (Dextrose 50% Inj) 0 ml IV STAT PRN; Protocol PRN Reason: Hypoglycemia Protocol Dextrose (Glutose 15) 0 gm PO ONCE PRN; Protocol PRN Reason: Hypoglycemia Protocol Ergocalciferol (Drisdol 50,000 Intl Units Cap) 1 cap PO Q7D [facility] Last Admin: 06/28/17 16:17 Dose: 1 cap Famotidine (Pepcid) 20 mg PO DAILY [facility] Last Admin: 06/29/17 10:09 Dose: 20 mg Ferrous Gluconate (Fergon) 324 mg PO TID [facility] Last Admin: 06/29/17 17:46 Dose: 324 mg Furosemide (Lasix) 80 mg IVP BID [facility] Last Admin: 06/29/17 17:39 Dose: 80 mg Glucagon (Glucagen Diagnostic Kit) 0 mg IM STAT PRN; Protocol PRN Reason: Hypoglycemia Protocol Hydralazine HCl (Apresoline) 50 mg PO QID [facility] Last Admin: 06/29/17 21:42 Dose: 50 mg Hydralazine HCl (Apresoline) 10 mg IVP Q6H PRN PRN Reason: SBP>160 Last Admin: 06/30/17 00:46 Dose: 10 mg Dextrose (Dextrose 5% In Water 1000 Ml) 1,000 mls @ 0 mls/hr IV .Q0M PRN; Protocol; Per Protocol PRN Reason: Hypoglycemia Protocol Ceftriaxone Sodium 1 gm/ (Sodium Chloride) 100 mls @ 100 mls/hr IVPB Q24H [facility] PRN Reason: Protocol Last Admin: 06/29/17 12:15 Dose: 100 mls/hr Insulin Human Isoph/Insulin Regular (Novolin 70/30 (70/30 Units/Ml) 10 Ml) 20 units SC Q12H [facility] Last Admin: 06/29/17 21:43 Dose: 20 units Insulin Human Regular (Novolin R) 0 unit SC ACHS ATUL PRN Reason: Protocol Last Admin: 06/29/17 21:28 Dose: Not Given Vitamin B Complex/Vit C/Folic Acid (Nephro-Matti) 1 tab PO 0800 [facility] Last Admin: 06/29/17 08:31 Dose: 1 tab - Labs Labs: 06/29/17 06:58 06/29/17 06:58 PT 11.6 SECONDS (9.7-12.2) 06/28/17 07:08 INR 1.0 06/28/17 07:08 APTT 125 SECONDS (21-34) H* D 06/28/17 14:03 - Additional Findings Additional findings: - Constitutional Appears: Cachectic, Chronically Ill - Head Exam Head Exam: ATRAUMATIC, NORMAL INSPECTION - Eye Exam Eye Exam: EOMI, Normal appearance, PERRL - ENT Exam ENT Exam: Mucous Membranes Moist - Respiratory Exam Respiratory Exam: Decreased Breath Sounds (left lower lung decreased lung sounds ), NORMAL BREATHING PATTERN. absent: Rales, Rhonchi, Wheezes, Stridor - Cardiovascular Exam Cardiovascular Exam: REGULAR RHYTHM, +S1, +S2. absent: JVD - GI/Abdominal Exam GI & Abdominal Exam: Normal Bowel Sounds, Soft. absent: Tenderness - Extremities Exam Extremities exam: Positive for: normal capillary refill, pedal edema (1+ pitting edema bilateral), pedal pulses present. Negative for: calf tenderness, tenderness - Neurological Exam Neurological exam: Alert, Oriented x3 - Psychiatric Exam Psychiatric exam: Normal Affect, Normal Mood - Skin Skin Exam: Dry, Intact, Normal Color Assessment and Plan - Assessment and Plan (Free Text) Plan: 1.) Shortness of breath D-dimer: 449 - VQ Scan: low probability for PE - Heparin drip discontinued BiPAP prn Lasix 80 mg IV BID chest x-ray: pulmonary vascular congestion changes with bilateral lower lobe alveolar-type infiltrates atelectasis and bilateral effusions Monitor I/O Chest CT w.o. contrast shows moderate pleural effusion and no evidence of malignancy 2.) New onset CHF Cardiology Consult: Dr. Granda --> help appreciated PrBnP: [id number] Lipid Panel shows TGs 60, LDL 128, HDL 79 f/u ECHO Avoiding MELISA/ARB due to renal failure Coreg 12.5 mg PO BID 3.) Bilateral LE Swelling Lasix 80mg IV BID Monitory I/O Fluid restriction 1000ml Venous dopplers negative for DVT 4.) History of HTN Monitor BP Hydralazine 10mg IV Q6 prn Hydrazaline 50mg po QID Coreg 25 mg PO BID 5.) History of DM Type II Accuchecks ISS Hypoglycemia protocol Hemoglobin A1c 10.6 NPH/Regular 15 units SC Q12H increased to 20 units SC Q12H 6.) History of Chronic Kidney Injury Elevated BUN/Cr likely due to long-standing HTN and DM Nephro Consult: Dr. Mcdowell, help appreciated Renal ultrasound shows medical renal disease f/u immunology workup to ascertain for other etiologies of kidney disease 7.) Hyperkalemia possibly secondary to chronic kidney injury Continue to monitor 8.) UTI Rocephin 1 gm IV daily started on 06/28/17 9.) Prophylaxis Heparin drip discontinued. Due to elevated PTT, will wait until tomorrow before starting Heparin SC Pepcid 20mg daily <Giacomo Hameed H - Last Filed: 06/30/17 10:37> Objective - Vital Signs/Intake and Output Vital Signs (last 24 hours): Temp Pulse Resp BP Pulse Ox 97.5 F L 77 20 193/89 H 100 06/30/17 08:40 06/30/17 08:40 06/30/17 08:40 06/30/17 08:40 06/30/17 08:40 - Medications Medications: Current Medications Albuterol/Ipratropium (Duoneb 3 Mg/0.5 Mg (3 Ml) Ud) 3 ml INH RQ6 [facility] Last Admin: 06/30/17 07:23 Dose: 3 ml Aspirin (Aspirin Chewable) 81 mg PO DAILY [facility] Last Admin: 04/03/18 10:09 Dose: 81 mg Carvedilol (Coreg) 25 mg PO BID [facility] Dextrose (Dextrose 50% Inj) 0 ml IV STAT PRN; Protocol PRN Reason: Hypoglycemia Protocol Dextrose (Glutose 15) 0 gm PO ONCE PRN; Protocol PRN Reason: Hypoglycemia Protocol Ergocalciferol (Drisdol 50,000 Intl Units Cap) 1 cap PO Q7D [facility] Last Admin: 06/28/17 16:17 Dose: 1 cap Famotidine (Pepcid) 20 mg PO DAILY [facility] Last Admin: 06/29/17 10:09 Dose: 20 mg Ferrous Gluconate (Fergon) 324 mg PO TID [facility] Last Admin: 06/29/17 17:46 Dose: 324 mg Furosemide (Lasix) 80 mg IVP BID [facility] Last Admin: 06/29/17 17:39 Dose: 80 mg Glucagon (Glucagen Diagnostic Kit) 0 mg IM STAT PRN; Protocol PRN Reason: Hypoglycemia Protocol Hydralazine HCl (Apresoline) 50 mg PO QID [facility] Last Admin: 06/29/17 21:42 Dose: 50 mg Hydralazine HCl (Apresoline) 10 mg IVP Q6H PRN PRN Reason: SBP>160 Last Admin: 06/30/17 00:46 Dose: 10 mg Dextrose (Dextrose 5% In Water 1000 Ml) 1,000 mls @ 0 mls/hr IV .Q0M PRN; Protocol; Per Protocol PRN Reason: Hypoglycemia Protocol Ceftriaxone Sodium 1 gm/ (Sodium Chloride) 100 mls @ 100 mls/hr IVPB Q24H [facility] PRN Reason: Protocol Last Admin: 06/29/17 12:15 Dose: 100 mls/hr Insulin Human Isoph/Insulin Regular (Novolin 70/30 (70/30 Units/Ml) 10 Ml) 20 units SC Q12H [facility] Last Admin: 06/29/17 21:43 Dose: 20 units Insulin Human Regular (Novolin R) 0 unit SC ACHS [facility] PRN Reason: Protocol Last Admin: 06/29/17 21:28 Dose: Not Given Nifedipine (Procardia Xl) 30 mg PO DAILY [facility] Vitamin B Complex/Vit C/Folic Acid (Nephro-Matti) 1 tab PO 0800 [facility] Last Admin: 06/30/17 08:49 Dose: 1 tab - Labs Labs: 06/30/17 07:05 06/30/17 07:05 PT 11.6 SECONDS (9.7-12.2) 06/28/17 07:08 INR 1.0 06/28/17 07:08 APTT 125 SECONDS (21-34) H* D 06/28/17 14:03 - Constitutional Appears: Well, Non-toxic - Head Exam Head Exam: NORMAL INSPECTION - Eye Exam Eye Exam: EOMI, Normal appearance - Respiratory Exam Respiratory Exam: Decreased Breath Sounds Additional comments: slight decrease on side of the pleural effusion - Cardiovascular Exam Cardiovascular Exam: REGULAR RHYTHM - GI/Abdominal Exam GI & Abdominal Exam: Soft, Normal Bowel Sounds. absent: Tenderness - Extremities Exam Extremities Exam: Pedal Edema Additional comments: Much less pedal edema, about +1 over the lower half of the anteiror flores. There is no longer pitting edema in the upper or lower thigh. - Neurological Exam Neurological Exam: Alert, Awake, Oriented x3 Neuro motor strength exam: Left Upper Extremity: 5, Right Upper Extremity: 5, Left Lower Extremity: 5, Right Lower Extremity: 5 - Psychiatric Exam Psychiatric exam: Normal Affect, Normal Mood - Skin Skin Exam: Normal Color, Warm Attending/Attestation - Attestation I have personally seen and examined this patient.: Yes I have fully participated in the care of the patient.: Yes I have reviewed all pertinent clinical information, including history, physical exam and plan: Yes Notes (Text): Medical attending: Patient was seen and examined by me. The patient was not in any acute distress when I saw and examined her this morning. She reports she is able to ambulate and walk much easier than before. The CT scan shows she has a pleural effusion bilaterally with the right > left. I discussed this with the patient and explained that we will try to see if she could get a thoracentesis. Probably the fluid we see on the CT scan we are seeing is secondary CHF or CKD but we need to check cytology in case this could be a malignant fluid. Also LDH, pH. protein, albumin, cultures of the pleural fluid. We will also check CEA , Ca 19-9, and also Ca125 while she is here. She tells me she has never had a colonscopy before. On exam she reports she feels well. She continues to be able to walk without Again we had a coversation about the patient's HTN. She is still having high numbers and so this morning Nifedepine along with the hydralazine, and coreg. This morning she had systolics that were 175 and 180s. As of now her accuchecks have been stable 117, 255, 187, 157 so will continue this regimen for now. thank you Giacomo Hameed
[2017-06-30 07:18] LABS: BASO % 0.6 % (0.0-2.0); EOS # 0.1 K/uL (0.0-0.7); EOS % 1.4 % (0.0-4.0); HEMOGLOBIN 10.1 g/dL (11.0-16.0); LYMPH # 0.9 K/uL (1.0-4.3); LYMPH % 12.6 % (20.0-40.0); MEAN CELL VOLUME 86.2 fL (81.0-99.0); MEAN CORPUSCULAR HEMOGLOBIN 28.9 pg (27.0-31.0); MEAN CORPUSCULAR HGB CONC 33.6 g/dL (33.0-37.0); MEAN PLATELET VOLUME 8.4 fL (7.2-11.7); MONO # 0.5 K/uL (0.0-0.8); MONO % 7.3 % (0.0-10.0); NEUT # 5.3 K/uL (1.8-7.0); NEUT % 78.1 % (50.0-75.0); RBC 3.48 Mil/uL (3.80-5.20); WHITE BLOOD COUNT 6.8 K/uL (4.8-10.8)
[2017-06-30 07:38] LABS: ALB/GLOB RATIO 0.9 (1.0-2.1); ALBUMIN 2.9 g/dL (3.5-5.0); ALT/SGPT 36 U/L (9-52); AST/SGOT 25 U/L (14-36); BLOOD UREA NITROGEN 45 mg/dL (7-17); CALCIUM 8.9 mg/dl (8.6-10.4); GFR AFRICAN-AMERICAN 14; GFR NON-AFRICAN AMERICAN 11
[2017-06-30] MEDS: Multivitamin Vitamin B Complex (Nephro-Vite) Tab PO SCH (08:49)
[2017-06-30] MEDS: (Novolin 70/30) NPH/Regular 70/30 Units/ml 10 ml vial SC SCH ×2 (10:41→21:46)
[2017-06-30] MEDS: (Novolin R) Insulin Human Regular 100 units/ml vial SC SCH ×4 (10:44→21:45)
[2017-06-30] MEDS: NIFEdipine 30 mg ER Tab PO SCH (10:45)
[2017-06-30 10:52] LABS: ALBUMIN (PEP) 3.1 g/dL (3.8-4.8); ALPHA-1-GLOBULIN (PEP) 0.4 g/dL (0.2-0.3)
--- NOTE | 2017-06-30 10:52 | CP.PCM.PN ---
Subjective - Date & Time of Evaluation Date of Evaluation: 06/30/17 Time of Evaluation: 08:20 - Subjective Subjective: Patient appears to be comfortable No chest pain or shortness of breath Responding to diuretics Objective - Vital Signs/Intake and Output Vital Signs (last 24 hours): Temp Pulse Resp BP Pulse Ox 97.5 F L 77 20 193/89 H 100 06/30/17 08:40 06/30/17 08:40 06/30/17 08:40 06/30/17 10:43 06/30/17 08:40 - Medications Medications: Current Medications Albuterol/Ipratropium (Duoneb 3 Mg/0.5 Mg (3 Ml) Ud) 3 ml INH RQ6 [facility] Last Admin: 06/30/17 07:23 Dose: 3 ml Aspirin (Aspirin Chewable) 81 mg PO DAILY [facility] Last Admin: 06/30/17 10:41 Dose: 81 mg Carvedilol (Coreg) 25 mg PO BID [facility] Last Admin: 06/30/17 10:43 Dose: 25 mg Dextrose (Dextrose 50% Inj) 0 ml IV STAT PRN; Protocol PRN Reason: Hypoglycemia Protocol Dextrose (Glutose 15) 0 gm PO ONCE PRN; Protocol PRN Reason: Hypoglycemia Protocol Ergocalciferol (Drisdol 50,000 Intl Units Cap) 1 cap PO Q7D [facility] Last Admin: 06/28/17 16:17 Dose: 1 cap Famotidine (Pepcid) 20 mg PO DAILY [facility] Last Admin: 06/30/17 10:42 Dose: 20 mg Ferrous Gluconate (Fergon) 324 mg PO TID [facility] Last Admin: 06/30/17 10:43 Dose: 324 mg Furosemide (Lasix) 80 mg IVP BID [facility] Last Admin: 06/30/17 10:42 Dose: 80 mg Glucagon (Glucagen Diagnostic Kit) 0 mg IM STAT PRN; Protocol PRN Reason: Hypoglycemia Protocol Hydralazine HCl (Apresoline) 50 mg PO QID [facility] Last Admin: 06/30/17 10:42 Dose: 50 mg Hydralazine HCl (Apresoline) 10 mg IVP Q6H PRN PRN Reason: SBP>160 Last Admin: 06/30/17 00:46 Dose: 10 mg Dextrose (Dextrose 5% In Water 1000 Ml) 1,000 mls @ 0 mls/hr IV .Q0M PRN; Protocol; Per Protocol PRN Reason: Hypoglycemia Protocol Ceftriaxone Sodium 1 gm/ (Sodium Chloride) 100 mls @ 100 mls/hr IVPB Q24H [facility] PRN Reason: Protocol Last Admin: 06/29/17 12:15 Dose: 100 mls/hr Insulin Human Isoph/Insulin Regular (Novolin 70/30 (70/30 Units/Ml) 10 Ml) 20 units SC Q12H [facility] Last Admin: 06/30/17 10:41 Dose: 20 units Insulin Human Regular (Novolin R) 0 unit SC ACHS [facility] PRN Reason: Protocol Last Admin: 06/30/17 10:44 Dose: Not Given Nifedipine (Procardia Xl) 30 mg PO DAILY [facility] Last Admin: 06/30/17 10:45 Dose: 30 mg Vitamin B Complex/Vit C/Folic Acid (Nephro-Matti) 1 tab PO 0800 [facility] Last Admin: 06/30/17 08:49 Dose: 1 tab - Labs Labs: 06/30/17 07:05 06/30/17 07:05 PT 11.6 SECONDS (9.7-12.2) 06/28/17 07:08 INR 1.0 06/28/17 07:08 APTT 125 SECONDS (21-34) H* D 06/28/17 14:03 - Constitutional Appears: No Acute Distress - ENT Exam ENT Exam: Mucous Membranes Moist - Respiratory Exam Respiratory Exam: NORMAL BREATHING PATTERN. absent: Chest Wall Tenderness - Cardiovascular Exam Cardiovascular Exam: absent: Gallop, JVD, Rubs - GI/Abdominal Exam GI & Abdominal Exam: Soft, Normal Bowel Sounds - Extremities Exam Extremities Exam: Pedal Edema. absent: Calf Tenderness - Back Exam Back Exam: absent: CVA tenderness (L), CVA tenderness (R) - Psychiatric Exam Psychiatric exam: Normal Mood - Skin Skin Exam: absent: Cyanosis Assessment and Plan (1) Acute renal insufficiency Assessment & Plan: Assessment: stable Nephrotic syndrome with fluid overload Acute Kidney Injury (N17.9) versus likely progressive underlying CKD Diabetic chronic Kidney Disease (E11.22) Hypertensive Chronic Kidney Disease (I12.9) with HTN urgency ? Chronic Kidney Disease (N18.5) Stage 5 with 5 gm proteinuria (R80.9) likely due to DM Anemia (D64.9), Hyperphosphatemia (E83.39), Secondary Hyperparathyroidism (E21.1 ), HTN (I12.9) non compliance to meds and follow up Plan Hypertension control with meds as ordered. Patient not on ACEI/ARB due to advanced renal insuff. added coreg 6.25 mg bid. also on hydralazine Monitor Input/Output, daily weights and renal function with basic metabolic panel diuresis with IV lasix 80 mg bid add iron supplements, MVI and weekly Vitamin D Blood pressure is still elevated, suggest to add clonidine Status: Acute (2) Chronic congestive heart failure Status: Acute (3) Diabetes Status: Acute (4) Uncontrolled hypertension Status: Acute
--- NOTE | 2017-06-30 12:20 | PCM.SURG1 ---
Surgeon's Initial Post Op Note - Surgeon's Notes Surgeon: Levi Bone MD Sales Audit Clerk: NONE Type of Anesthesia: Local Pre-Operative Diagnosis: Right pleural effusion Operative Findings: US showed a small right effusion Post-Operative Diagnosis: Right pleural effusion Operation Performed: US guided right thoracentesis Specimen/Specimens Removed: 300 cc Estimated Blood Loss: EBL {In ML}: 0 Blood Products Given: N/A Drains Used: No Drains Post-Op Condition: Fair Date of Surgery/Procedure: 06/30/17 Time of Surgery/Procedure: 12:05
[2017-06-30 13:09] LABS: BODY FLUID TYPE PLEURAL/THORACENTESI
--- NOTE | 2017-06-30 14:33 | US ---
PROCEDURE: Date of procedure: 06/30/2017 Procedure: 1. Ultrasound-guided Right thoracentesis, CPT 01897 Medications: 6cc 1% Lidocaine HISTORY: Right pleural effusion TECHNIQUE: Following informed consent ,the Patients' right chest was marked. Procedure time-out was called, and the patient was placed in the sitting position and limited ultrasound showed a small right effusion. The patient's right back was prepped and draped in the usual sterile fashion. After the skin was anesthetized with lidocaine, a drainage catheter was advanced under ultrasound guidance into the pleural space. Ultrasound-guided thoracentesis was performed. A total of 300 cubic centimeters of straw-colored fluid removed without complication. A Xeroform dressing was applied. IMPRESSION: Ultrasound guided Right thoracentesis. There were no immediate complications.
[2017-06-30 15:04] LABS: BF GROSS APPEARANCE SL CLOUDY (CLEAR)
[2017-06-30 15:05] LABS: BODY FLUID MONO/MACROPHAGE 3 % (0-0)
[2017-06-30] MEDS ORDERED: Bisacodyl 5mg EC Tab PO ONE (20:27)
[2017-07-01] MEDS: Albuterol-Ipratrop 3 mg / 0.5 (3 ml) UD INH SCH ×4 (01:22→19:53)
[2017-07-01 07:09] LABS: BASO # 0.1 K/uL (0.0-0.2); EOS # 0.2 K/uL (0.0-0.7); EOS % 2.7 % (0.0-4.0); HEMOGLOBIN 9.3 g/dL (11.0-16.0); LYMPH # 0.9 K/uL (1.0-4.3); LYMPH % 14.5 % (20.0-40.0); MEAN CELL VOLUME 85.7 fL (81.0-99.0); MEAN CORPUSCULAR HEMOGLOBIN 29.3 pg (27.0-31.0); MEAN CORPUSCULAR HGB CONC 34.2 g/dL (33.0-37.0); MEAN PLATELET VOLUME 8.4 fL (7.2-11.7); MONO # 0.5 K/uL (0.0-0.8); NEUT # 4.5 K/uL (1.8-7.0); NEUT % 73.8 % (50.0-75.0); RBC 3.18 Mil/uL (3.80-5.20); RED CELL DISTRIBUTION WIDTH 14.8 % (11.5-14.5); WHITE BLOOD COUNT 6.1 K/uL (4.8-10.8)
[2017-07-01] MEDS: (Novolin R) Insulin Human Regular 100 units/ml vial SC SCH ×4 (07:40→22:54)
--- NOTE | 2017-07-01 07:43 | CP.PCM.PN ---
<Klever Wright - Last Filed: 07/01/17 13:55> Subjective - Date & Time of Evaluation Date of Evaluation: 07/01/17 Time of Evaluation: 07:50 - Subjective Subjective: Medicine progress note for Dr. Hameed Patient seen and examined. Patient reports doing well with her breathing and lower extremity edema. Patient is complaining of leg pain today after her foot dressings were changed. Patient has no other acute complaints. At this time, patient refuses to consider dialysis. Objective - Vital Signs/Intake and Output Vital Signs (last 24 hours): Temp Pulse Resp BP Pulse Ox 98.3 F 64 20 146/67 98 06/30/17 23:25 07/01/17 04:22 06/30/17 23:25 07/01/17 05:25 06/30/17 23:25 Intake and Output: 07/01/17 07/01/17 06:59 18:59 Intake Total 60 Balance 60 - Medications Medications: Current Medications Albuterol/Ipratropium (Duoneb 3 Mg/0.5 Mg (3 Ml) Ud) 3 ml INH RQ6 [facility] Last Admin: 07/01/17 07:23 Dose: 3 ml Aspirin (Aspirin Chewable) 81 mg PO DAILY [facility] Last Admin: 06/30/17 10:41 Dose: 81 mg Bisacodyl (Dulcolax) 5 mg PO DAILY PRN PRN Reason: Constipation Carvedilol (Coreg) 25 mg PO BID [facility] Last Admin: 06/30/17 21:36 Dose: 25 mg Clonidine HCl (Catapres) 0.1 mg PO BID [facility] Last Admin: 06/30/17 21:36 Dose: 0.1 mg Dextrose (Dextrose 50% Inj) 0 ml IV STAT PRN; Protocol PRN Reason: Hypoglycemia Protocol Dextrose (Glutose 15) 0 gm PO ONCE PRN; Protocol PRN Reason: Hypoglycemia Protocol Ergocalciferol (Drisdol 50,000 Intl Units Cap) 1 cap PO Q7D [facility] Last Admin: 06/28/17 16:17 Dose: 1 cap Famotidine (Pepcid) 20 mg PO DAILY [facility] Last Admin: 06/30/17 10:42 Dose: 20 mg Ferrous Gluconate (Fergon) 324 mg PO TID [facility] Last Admin: 06/30/17 18:33 Dose: 324 mg Furosemide (Lasix) 80 mg IVP BID [facility] Last Admin: 06/30/17 18:28 Dose: 80 mg Gabapentin (Neurontin) 100 mg PO TID [facility] Glucagon (Glucagen Diagnostic Kit) 0 mg IM STAT PRN; Protocol PRN Reason: Hypoglycemia Protocol Hydralazine HCl (Apresoline) 10 mg IVP Q6H PRN PRN Reason: SBP>160 Last Admin: 06/30/17 00:46 Dose: 10 mg Hydralazine HCl (Apresoline) 50 mg PO Q6 [facility] Last Admin: 07/01/17 05:24 Dose: 50 mg Dextrose (Dextrose 5% In Water 1000 Ml) 1,000 mls @ 0 mls/hr IV .Q0M PRN; Protocol; Per Protocol PRN Reason: Hypoglycemia Protocol Ceftriaxone Sodium 1 gm/ (Sodium Chloride) 100 mls @ 100 mls/hr IVPB Q24H [facility] PRN Reason: Protocol Last Admin: 06/30/17 12:47 Dose: 100 mls/hr Insulin Human Isoph/Insulin Regular (Novolin 70/30 (70/30 Units/Ml) 10 Ml) 20 units SC Q12H [facility] Last Admin: 06/30/17 21:46 Dose: 20 units Insulin Human Regular (Novolin R) 0 unit SC ACHS [facility] PRN Reason: Protocol Last Admin: 06/30/17 21:45 Dose: Not Given Nifedipine (Procardia Xl) 30 mg PO DAILY [facility] Last Admin: 06/30/17 10:45 Dose: 30 mg Vitamin B Complex/Vit C/Folic Acid (Nephro-Matti) 1 tab PO 0800 [facility] Last Admin: 06/30/17 08:49 Dose: 1 tab - Labs Labs: 07/01/17 06:57 06/30/17 07:05 PT 11.6 SECONDS (9.7-12.2) 06/28/17 07:08 INR 1.0 06/28/17 07:08 APTT 30 SECONDS (21-34) D 06/30/17 10:44 - Additional Findings Additional findings: - Constitutional Appears: Cachectic, Chronically Ill - Head Exam Head Exam: ATRAUMATIC, NORMAL INSPECTION - Eye Exam Eye Exam: EOMI, Normal appearance, PERRL - ENT Exam ENT Exam: Mucous Membranes Moist - Respiratory Exam Respiratory Exam: Decreased Breath Sounds, NORMAL BREATHING PATTERN. absent: Rales, Rhonchi, Wheezes, Stridor - Cardiovascular Exam Cardiovascular Exam: REGULAR RHYTHM, +S1, +S2. absent: JVD - GI/Abdominal Exam GI & Abdominal Exam: Normal Bowel Sounds, Soft. absent: Tenderness - Extremities Exam Extremities exam: Positive for: normal capillary refill, pedal edema (bilateral pitting edema significantly improved), pedal pulses present. Negative for: calf tenderness, tenderness - Neurological Exam Neurological exam: Alert, Oriented x3 - Psychiatric Exam Psychiatric exam: Normal Affect, Normal Mood - Skin Skin Exam: Dry, Intact, Normal Color Assessment and Plan - Assessment and Plan (Free Text) Plan: 1.) Shortness of breath D-dimer: 449 - VQ Scan: low probability for PE - Heparin drip discontinued BiPAP prn Lasix 80 mg IV BID chest x-ray: pulmonary vascular congestion changes with bilateral lower lobe alveolar-type infiltrates atelectasis and bilateral effusions Monitor I/O Chest CT w.o. contrast shows moderate pleural effusion and no evidence of malignancy On 06/30/17, patient had 300 cc of pleural fluid drained via thoracentesis 2.) New onset CHF Cardiology Consult: Dr. Granda --> help appreciated PrBnP: [id number] Lipid Panel shows TGs 60, LDL 128, HDL 79 f/u ECHO Avoiding MELISA/ARB due to renal failure Coreg 25 mg PO BID 3.) Bilateral LE Swelling Lasix 80mg IV BID Monitory I/O Fluid restriction 1000ml Venous dopplers negative for DVT 4.) History of HTN Monitor BP Hydralazine 10mg IV Q6 prn Hydrazaline 50mg po QID Coreg 25 mg PO BID Nifedipine XL 30 mg PO daily Per nephro, clonidine 0.1 mg PO BID 5.) History of DM Type II Accuchecks ISS Hypoglycemia protocol Hemoglobin A1c 10.6 NPH/Regular 20 units SC Q12H 6.) History of Chronic Kidney Injury Elevated BUN/Cr likely due to long-standing HTN and DM Nephro Consult: Dr. Mcdowell, help appreciated Renal ultrasound shows medical renal disease Immunology workup to ascertain for other etiologies of kidney disease has been negative thus far Nephrology has recommended vascular surgery consult for possible AVF however, at this time patient refuses to consider dialysis 7.) Hyperkalemia possibly secondary to chronic kidney injury Continue to monitor 8.) UTI Rocephin 1 gm IV daily started on 06/28/17 9.) Prophylaxis Heparin drip discontinued. Due to elevated PTT, will wait until tomorrow before starting Heparin SC Pepcid 20mg daily Discussed with Dr. Zari Wright PGY-1 <Giacomo Hameed H - Last Filed: 07/01/17 15:16> Objective - Vital Signs/Intake and Output Vital Signs (last 24 hours): Temp Pulse Resp BP Pulse Ox 98.0 F 65 20 138/71 100 07/01/17 07:30 07/01/17 07:40 07/01/17 07:30 07/01/17 10:01 07/01/17 07:30 Intake and Output: 07/01/17 07/01/17 06:59 18:59 Intake Total 60 Balance 60 - Medications Medications: Current Medications Acetaminophen (Tylenol 325mg Tab) 650 mg PO Q6 PRN PRN Reason: Pain, moderate (4-7) Albuterol/Ipratropium (Duoneb 3 Mg/0.5 Mg (3 Ml) Ud) 3 ml INH RQ6 [facility] Last Admin: 07/01/17 13:01 Dose: 3 ml Aspirin (Aspirin Chewable) 81 mg PO DAILY [facility] Last Admin: 07/01/17 10:00 Dose: 81 mg Bisacodyl (Dulcolax) 5 mg PO DAILY PRN PRN Reason: Constipation Carvedilol (Coreg) 25 mg PO BID [facility] Last Admin: 07/01/17 10:00 Dose: 25 mg Clonidine HCl (Catapres) 0.1 mg PO BID [facility] Last Admin: 07/01/17 10:00 Dose: 0.1 mg Dextrose (Dextrose 50% Inj) 0 ml IV STAT PRN; Protocol PRN Reason: Hypoglycemia Protocol Dextrose (Glutose 15) 0 gm PO ONCE PRN; Protocol PRN Reason: Hypoglycemia Protocol Ergocalciferol (Drisdol 50,000 Intl Units Cap) 1 cap PO Q7D [facility] Last Admin: 06/28/17 16:17 Dose: 1 cap Famotidine (Pepcid) 20 mg PO DAILY [facility] Last Admin: 07/01/17 10:00 Dose: 20 mg Ferrous Gluconate (Fergon) 324 mg PO TID [facility] Last Admin: 07/01/17 13:04 Dose: 324 mg Furosemide (Lasix) 80 mg IVP BID [facility] Last Admin: 07/01/17 10:01 Dose: 80 mg Gabapentin (Neurontin) 100 mg PO DAILY [facility] Glucagon (Glucagen Diagnostic Kit) 0 mg IM STAT PRN; Protocol PRN Reason: Hypoglycemia Protocol Hydralazine HCl (Apresoline) 10 mg IVP Q6H PRN PRN Reason: SBP>160 Last Admin: 06/30/17 00:46 Dose: 10 mg Hydralazine HCl (Apresoline) 50 mg PO Q6 [facility] Last Admin: 07/01/17 13:02 Dose: 50 mg Dextrose (Dextrose 5% In Water 1000 Ml) 1,000 mls @ 0 mls/hr IV .Q0M PRN; Protocol; Per Protocol PRN Reason: Hypoglycemia Protocol Ceftriaxone Sodium 1 gm/ (Sodium Chloride) 100 mls @ 100 mls/hr IVPB Q24H [facility] PRN Reason: Protocol Last Admin: 07/01/17 13:00 Dose: 100 mls/hr Insulin Human Isoph/Insulin Regular (Novolin 70/30 (70/30 Units/Ml) 10 Ml) 20 units SC Q12H [facility] Last Admin: 07/01/17 10:36 Dose: 20 units Insulin Human Regular (Novolin R) 0 unit SC ACHS [facility] PRN Reason: Protocol Last Admin: 07/01/17 13:03 Dose: 5 unit Nifedipine (Procardia Xl) 30 mg PO DAILY [facility] Last Admin: 07/01/17 10:00 Dose: 30 mg Vitamin B Complex/Vit C/Folic Acid (Nephro-Matti) 1 tab PO 0800 [facility] Last Admin: 07/01/17 10:36 Dose: 1 tab - Labs Labs: 07/01/17 06:57 07/01/17 06:57 PT 11.6 SECONDS (9.7-12.2) 06/28/17 07:08 INR 1.0 06/28/17 07:08 APTT 30 SECONDS (21-34) D 06/30/17 10:44 Attending/Attestation - Attestation I have personally seen and examined this patient.: Yes I have fully participated in the care of the patient.: Yes I have reviewed all pertinent clinical information, including history, physical exam and plan: Yes Notes (Text): 07/01/17 15:16 Medical attending: Patient was seen and examined by me, agrees the above note by the esthetician and manager medical spa. Today we had a very long extended discussion with the patient. We did consider discharging her the following day. 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 The patient does not have any family members lives in the [facility]. We did discuss about possibly discharging patient soon. Later in the day I was contacted by nephrology and per advice of nephrology she would benifit from placment of an AVF. I came back to see patient again later on in the early afternoon and spoke to her about this - since previously she was very reluctant about the idea of future HD. This time I sat down and spoke more about the matter and she understood the importance of this. For now, the blood pressure and blood sugars are somewhat more stable. We will continue to watch them and make adjustments as we go along She had 300 cc of fluid removed via thoracentesis. Yesterday. She tolerated this well and reported breathing was ok. thank you Giacomo Hameed
[2017-07-01 09:40] LABS: ALB/GLOB RATIO 0.9 (1.0-2.1); ALBUMIN 2.9 g/dL (3.5-5.0); CALCIUM 8.7 mg/dl (8.6-10.4)
[2017-07-01] MEDS: NIFEdipine 30 mg ER Tab PO SCH (10:00)
[2017-07-01] MEDS: Multivitamin Vitamin B Complex (Nephro-Vite) Tab PO SCH (10:36)
[2017-07-01] MEDS: (Novolin 70/30) NPH/Regular 70/30 Units/ml 10 ml vial SC SCH ×2 (10:36→22:04)
--- NOTE | 2017-07-01 10:40 | CP.PCM.PN ---
Subjective - Date & Time of Evaluation Date of Evaluation: 07/01/17 Time of Evaluation: 11:30 - Subjective Subjective: Podiatry Consult Note- Dr. Keane 61 yo female patient seen today with Dr. Keane for b/l foot ulcerations. Pt is seen resting in bed at time of visit. she does report some pain to the top of both feet due to the wounds. She denies f/n/v/c/sob/sp at this time. She is 1 day s/p thoracocentesis for pleural effusion. Offers no further complaints. Objective - Vital Signs/Intake and Output Vital Signs (last 24 hours): Temp Pulse Resp BP Pulse Ox 98.0 F 65 20 138/71 100 07/01/17 07:30 07/01/17 07:40 07/01/17 07:30 07/01/17 10:01 07/01/17 07:30 Intake and Output: 07/01/17 07/01/17 06:59 18:59 Intake Total 60 Balance 60 - Medications Medications: Current Medications Acetaminophen (Tylenol 325mg Tab) 650 mg PO Q6 PRN PRN Reason: Pain, moderate (4-7) Albuterol/Ipratropium (Duoneb 3 Mg/0.5 Mg (3 Ml) Ud) 3 ml INH RQ6 [facility] Last Admin: 07/01/17 07:23 Dose: 3 ml Aspirin (Aspirin Chewable) 81 mg PO DAILY [facility] Last Admin: 07/01/17 10:00 Dose: 81 mg Bisacodyl (Dulcolax) 5 mg PO DAILY PRN PRN Reason: Constipation Carvedilol (Coreg) 25 mg PO BID [facility] Last Admin: 07/01/17 10:00 Dose: 25 mg Clonidine HCl (Catapres) 0.1 mg PO BID [facility] Last Admin: 07/01/17 10:00 Dose: 0.1 mg Dextrose (Dextrose 50% Inj) 0 ml IV STAT PRN; Protocol PRN Reason: Hypoglycemia Protocol Dextrose (Glutose 15) 0 gm PO ONCE PRN; Protocol PRN Reason: Hypoglycemia Protocol Ergocalciferol (Drisdol 50,000 Intl Units Cap) 1 cap PO Q7D [facility] Last Admin: 06/28/17 16:17 Dose: 1 cap Famotidine (Pepcid) 20 mg PO DAILY [facility] Last Admin: 07/01/17 10:00 Dose: 20 mg Ferrous Gluconate (Fergon) 324 mg PO TID [facility] Last Admin: 07/01/17 10:01 Dose: 324 mg Furosemide (Lasix) 80 mg IVP BID [facility] Last Admin: 07/01/17 10:01 Dose: 80 mg Gabapentin (Neurontin) 100 mg PO TID [facility] Last Admin: 07/01/17 10:00 Dose: 100 mg Glucagon (Glucagen Diagnostic Kit) 0 mg IM STAT PRN; Protocol PRN Reason: Hypoglycemia Protocol Hydralazine HCl (Apresoline) 10 mg IVP Q6H PRN PRN Reason: SBP>160 Last Admin: 06/30/17 00:46 Dose: 10 mg Hydralazine HCl (Apresoline) 50 mg PO Q6 [facility] Last Admin: 07/01/17 05:24 Dose: 50 mg Dextrose (Dextrose 5% In Water 1000 Ml) 1,000 mls @ 0 mls/hr IV .Q0M PRN; Protocol; Per Protocol PRN Reason: Hypoglycemia Protocol Ceftriaxone Sodium 1 gm/ (Sodium Chloride) 100 mls @ 100 mls/hr IVPB Q24H [facility] PRN Reason: Protocol Last Admin: 06/30/17 12:47 Dose: 100 mls/hr Insulin Human Isoph/Insulin Regular (Novolin 70/30 (70/30 Units/Ml) 10 Ml) 20 units SC Q12H [facility] Last Admin: 07/01/17 10:36 Dose: 20 units Insulin Human Regular (Novolin R) 0 unit SC ACHS [facility] PRN Reason: Protocol Last Admin: 07/01/17 07:40 Dose: Not Given Nifedipine (Procardia Xl) 30 mg PO DAILY [facility] Last Admin: 07/01/17 10:00 Dose: 30 mg Vitamin B Complex/Vit C/Folic Acid (Nephro-Matti) 1 tab PO 0800 [facility] Last Admin: 07/01/17 10:36 Dose: 1 tab - Labs Labs: 07/01/17 06:57 07/01/17 06:57 PT 11.6 SECONDS (9.7-12.2) 06/28/17 07:08 INR 1.0 06/28/17 07:08 APTT 30 SECONDS (21-34) D 06/30/17 10:44 - Constitutional Appears: Non-toxic, No Acute Distress - Extremities Exam Extremities Exam: absent: Calf Tenderness Additional comments: B/L lower ext exam: VASC- pedal pulses are palpable bl, skin temp wnl bl, cap refill < 3 sec to all digits, edema to b/l legs and feet much improved today with return of skin lines NEURO- gross and protective pedal sensation intact DERM- 4.0 x5.0 superficial ulcer noted to dorsum of right foot (lanced bullous lesion) with minimal serous drainage noted, scattered superficial ulcerations noted to dorsum of left foot with no drainage and no signs infection MSK-slight tenderness to palpation of wounds b/l feet , MMT is 5/5 all directions - Neurological Exam Neurological Exam: Alert, Awake, Oriented x3 - Psychiatric Exam Psychiatric exam: Normal Affect, Normal Mood Assessment and Plan - Assessment and Plan (Free Text) Assessment: 61 yo diabetic female with ulcerations of b/l feet 2/2 acute CHF exacerbation/ lower extremity edema Plan: Pt S&E with attending Dr. Keane present chart, labs and vitals reviewed: afebrile, neg leukocytosis right foot wound cleansed with saline and dressed with xeroform, DSD stable per podiatry will follow
--- NOTE | 2017-07-01 13:21 | CP.PCM.PN ---
Subjective - Date & Time of Evaluation Date of Evaluation: 07/01/17 Time of Evaluation: 13:20 - Subjective Subjective: Nephrology Consultation: Assessment: stable Nephrotic syndrome with fluid overload Acute Kidney Injury (N17.9) versus likely progressive underlying CKD Diabetic chronic Kidney Disease (E11.22) Hypertensive Chronic Kidney Disease (I12.9) with HTN urgency ? Chronic Kidney Disease (N18.5) Stage 5 with 5 gm proteinuria (R80.9) likely due to DM Anemia (D64.9), Hyperphosphatemia (E83.39), Secondary Hyperparathyroidism (E21.1 ), HTN (I12.9) non compliance to meds and follow up Plan No acute need for renal replacement therapy at this time but will need in near future. d/w pt and she is agreeable. Vascular surgery consult for AV access Hypertension control with meds as ordered. Patient not on ACEI/ARB due to advanced renal insuff. Monitor Input/Output, daily weights and renal function with basic metabolic panel diuresis with IV lasix 80 mg bid add iron supplements, MVI and weekly Vitamin D compliance to meds and follow up reinforced once stable, consider age appropriate malignancy screening Dose meds/antibiotics for reduced GFR. Avoid fleets enema/magnesium based laxatives. Avoid nephrotoxins/NSAIDs/ iodinated contrast (unless needed emergently) Glycemic control Further work up/management as per primary team Thanks for allowing me to participate in care of your patient. Will follow patient with you. Please call if any Qs. d/w team. Dr Roque Ruth Office: [phone] Chief Complaint; leg swelling and SOB HPI: Pt is a 61 F with hx of diabetes Mellitus (>20 years), hypertension (>20 years), kidney disease for few years, not taking meds for last 3 years and no followups presented with complaints of SOB and worsening legs swelling for last 1 week Denies OTC/herbal meds or NSAIDs No recent iodinated contrast exposure. No obvious episodes of low BP. she feels that had lost weight, don't know how much pt says she was told in [place] few years ago that kidney was damaged due to DM /HTN ROS: Cardiovascular: No chest pain. Pulmonary: improved shortness of breath Gastrointestinal: denies abdominal pain No nausea. No vomiting. Genitourinary: No pain while urinating. Denies blood in urine. All other negative Physical Examination: General Appearance: Comfortable, in no acute respiratory distress, co-operative . facial muscle wasting + Vitals reviewed and noted as below Head; Atraumatic, normocephalic ENT: no ulcers no thrush. Tongue is midline. Oropharynx: no rash or ulcers. EYES: Pupils are equal, round and reactive to light accommodation. Eye muscles and extraocular movement intact. Sclera is anicteric. Neck; supple no lymphadenopathy, no thyromegaly or bruit Lungs: Normal respiratory rate/effort. Breath sounds bilateral equal and occasional basal crackles Heart: Normal rate. s1s2 normal. No rub or gallop. Extremities: 2+ edema. No varicose veins Neurological: Patient is alert, awake and oriented to person, place and time. No focal deficit. Strength bilateral appropriate and equal Skin: Warm and dry. Normal turgor. No rash. Palpitation: Normal elasticity for age Abdomen: Abdomen is soft. Bowel sounds +. There is no abdominal tenderness, no guarding/rigidity no organomegaly Psych: lack insight and has normal affect/mood MSK: no joint tenderness or swelling. Digits and nails normal, no deformity : kidney or bladder not palpable Labs/imaging reviewed. Past medical history, past surgical history, family history, social history, allergy reviewed and noted as below Family hx: no hx of CKD. Rest non-contributory Objective - Vital Signs/Intake and Output Vital Signs (last 24 hours): Temp Pulse Resp BP Pulse Ox 98.0 F 65 20 138/71 100 07/01/17 07:30 07/01/17 07:40 07/01/17 07:30 07/01/17 10:01 07/01/17 07:30 Intake and Output: 07/01/17 07/01/17 06:59 18:59 Intake Total 60 Balance 60 - Medications Medications: Current Medications Acetaminophen (Tylenol 325mg Tab) 650 mg PO Q6 PRN PRN Reason: Pain, moderate (4-7) Albuterol/Ipratropium (Duoneb 3 Mg/0.5 Mg (3 Ml) Ud) 3 ml INH RQ6 [facility] Last Admin: 07/01/17 13:01 Dose: 3 ml Aspirin (Aspirin Chewable) 81 mg PO DAILY [facility] Last Admin: 07/01/17 10:00 Dose: 81 mg Bisacodyl (Dulcolax) 5 mg PO DAILY PRN PRN Reason: Constipation Carvedilol (Coreg) 25 mg PO BID [facility] Last Admin: 07/01/17 10:00 Dose: 25 mg Clonidine HCl (Catapres) 0.1 mg PO BID [facility] Last Admin: 07/01/17 10:00 Dose: 0.1 mg Dextrose (Dextrose 50% Inj) 0 ml IV STAT PRN; Protocol PRN Reason: Hypoglycemia Protocol Dextrose (Glutose 15) 0 gm PO ONCE PRN; Protocol PRN Reason: Hypoglycemia Protocol Ergocalciferol (Drisdol 50,000 Intl Units Cap) 1 cap PO Q7D [facility] Last Admin: 06/28/17 16:17 Dose: 1 cap Famotidine (Pepcid) 20 mg PO DAILY [facility] Last Admin: 07/01/17 10:00 Dose: 20 mg Ferrous Gluconate (Fergon) 324 mg PO TID [facility] Last Admin: 07/01/17 13:04 Dose: 324 mg Furosemide (Lasix) 80 mg IVP BID [facility] Last Admin: 07/01/17 10:01 Dose: 80 mg Gabapentin (Neurontin) 100 mg PO TID [facility] Last Admin: 07/01/17 13:09 Dose: 100 mg Glucagon (Glucagen Diagnostic Kit) 0 mg IM STAT PRN; Protocol PRN Reason: Hypoglycemia Protocol Hydralazine HCl (Apresoline) 10 mg IVP Q6H PRN PRN Reason: SBP>160 Last Admin: 06/30/17 00:46 Dose: 10 mg Hydralazine HCl (Apresoline) 50 mg PO Q6 [facility] Last Admin: 07/01/17 13:02 Dose: 50 mg Dextrose (Dextrose 5% In Water 1000 Ml) 1,000 mls @ 0 mls/hr IV .Q0M PRN; Protocol; Per Protocol PRN Reason: Hypoglycemia Protocol Ceftriaxone Sodium 1 gm/ (Sodium Chloride) 100 mls @ 100 mls/hr IVPB Q24H [facility] PRN Reason: Protocol Last Admin: 07/01/17 13:00 Dose: 100 mls/hr Insulin Human Isoph/Insulin Regular (Novolin 70/30 (70/30 Units/Ml) 10 Ml) 20 units SC Q12H [facility] Last Admin: 07/01/17 10:36 Dose: 20 units Insulin Human Regular (Novolin R) 0 unit SC ACHS [facility] PRN Reason: Protocol Last Admin: 07/01/17 13:03 Dose: 5 unit Nifedipine (Procardia Xl) 30 mg PO DAILY [facility] Last Admin: 07/01/17 10:00 Dose: 30 mg Vitamin B Complex/Vit C/Folic Acid (Nephro-Matti) 1 tab PO 0800 [facility] Last Admin: 07/01/17 10:36 Dose: 1 tab - Labs Labs: 07/01/17 06:57 07/01/17 06:57 PT 11.6 SECONDS (9.7-12.2) 06/28/17 07:08 INR 1.0 06/28/17 07:08 APTT 30 SECONDS (21-34) D 06/30/17 10:44
--- NOTE | 2017-07-01 16:05 | CP.PCM.CON ---
History of Present Illness - History of Present Illness History of Present Illness: Vascular surgery Consult Note for Dr. Srinath Vargas, PGY-1 Pt S & E at bedside. 61F w/ PMH sig for DM, HTN, CKD requiring HD access. Pt admitted to hospital for SOB, B/L LE swelling. Has required Bipap intermittently. Admits to progressive swelling & pain in B/L LE w/assoc JACKMAN, peripheral neuropathy. Pt denies history of fistula or vascular access. CP, SOB, N & V, F & C, changes in bowel or bladder habits, other complaints. PMH: HTN, DM2, CKD PSH: Denies All: NKDA SH: Denies tobacco, ETOH, or illicit drug use. Review of Systems - Review of Systems All systems: reviewed and no additional remarkable complaints except - Constitutional Constitutional: absent: Chills, Fever, Weakness - EENT Eyes: Blurred Vision. absent: Change in Vision Ears: absent: Dizziness - Cardiovascular Cardiovascular: Dyspnea, Dyspnea on Exertion, Edema, Leg Edema, Pedal Edema. absent: Leg Ulcers, Syncope - Respiratory Respiratory: Dyspnea, Dyspnea on Exertion - Gastrointestinal Gastrointestinal: absent: Abdominal Pain, Constipation, Diarrhea - Genitourinary Genitourinary: absent: Change in Urinary Stream, Dysuria - Musculoskeletal Musculoskeletal: Numbness, Tingling. absent: Back Pain - Integumentary Integumentary: absent: New Lesions - Neurological Neurological: Numbness, Tingling - Psychiatric Psychiatric: absent: Change in Appetite Past Patient History - Past Medical History & Family History Past Medical History?: Yes - Past Social History Smoking Status: Never Smoked - CARDIAC Hx Hypertension: Yes - RENAL Hx Chronic Kidney Disease: Yes - ENDOCRINE/METABOLIC Hx Endocrine Disorders: Yes Hx Diabetes Mellitus Type 2: Yes - MUSCULOSKELETAL/RHEUMATOLOGICAL Hx Falls: No - PSYCHIATRIC Hx Substance Use: No - SURGICAL HISTORY Hx Surgeries: No Meds Allergies/Adverse Reactions: Allergies Allergy/AdvReac Type Severity Reaction Status Date / Time No Known Allergies Allergy Verified 06/27/17 16:01 - Medications Medications: Current Medications Acetaminophen (Tylenol 325mg Tab) 650 mg PO Q6 PRN PRN Reason: Pain, moderate (4-7) Albuterol/Ipratropium (Duoneb 3 Mg/0.5 Mg (3 Ml) Ud) 3 ml INH RQ6 [facility] Last Admin: 07/01/17 13:01 Dose: 3 ml Aspirin (Aspirin Chewable) 81 mg PO DAILY [facility] Last Admin: 07/01/17 10:00 Dose: 81 mg Bisacodyl (Dulcolax) 5 mg PO DAILY PRN PRN Reason: Constipation Carvedilol (Coreg) 25 mg PO BID [facility] Last Admin: 07/01/17 10:00 Dose: 25 mg Clonidine HCl (Catapres) 0.1 mg PO BID [facility] Last Admin: 07/01/17 10:00 Dose: 0.1 mg Dextrose (Dextrose 50% Inj) 0 ml IV STAT PRN; Protocol PRN Reason: Hypoglycemia Protocol Dextrose (Glutose 15) 0 gm PO ONCE PRN; Protocol PRN Reason: Hypoglycemia Protocol Ergocalciferol (Drisdol 50,000 Intl Units Cap) 1 cap PO Q7D [facility] Last Admin: 06/28/17 16:17 Dose: 1 cap Famotidine (Pepcid) 20 mg PO DAILY [facility] Last Admin: 07/01/17 10:00 Dose: 20 mg Ferrous Gluconate (Fergon) 324 mg PO TID [facility] Last Admin: 07/01/17 13:04 Dose: 324 mg Furosemide (Lasix) 80 mg IVP BID [facility] Last Admin: 07/01/17 10:01 Dose: 80 mg Gabapentin (Neurontin) 100 mg PO DAILY [facility] Glucagon (Glucagen Diagnostic Kit) 0 mg IM STAT PRN; Protocol PRN Reason: Hypoglycemia Protocol Hydralazine HCl (Apresoline) 10 mg IVP Q6H PRN PRN Reason: SBP>160 Last Admin: 06/30/17 00:46 Dose: 10 mg Hydralazine HCl (Apresoline) 50 mg PO Q6 [facility] Last Admin: 07/01/17 13:02 Dose: 50 mg Dextrose (Dextrose 5% In Water 1000 Ml) 1,000 mls @ 0 mls/hr IV .Q0M PRN; Protocol; Per Protocol PRN Reason: Hypoglycemia Protocol Ceftriaxone Sodium 1 gm/ (Sodium Chloride) 100 mls @ 100 mls/hr IVPB Q24H [facility] PRN Reason: Protocol Last Admin: 07/01/17 13:00 Dose: 100 mls/hr Insulin Human Isoph/Insulin Regular (Novolin 70/30 (70/30 Units/Ml) 10 Ml) 20 units SC Q12H [facility] Last Admin: 07/01/17 10:36 Dose: 20 units Insulin Human Regular (Novolin R) 0 unit SC ACHS [facility] PRN Reason: Protocol Last Admin: 07/01/17 13:03 Dose: 5 unit Nifedipine (Procardia Xl) 30 mg PO DAILY [facility] Last Admin: 07/01/17 10:00 Dose: 30 mg Vitamin B Complex/Vit C/Folic Acid (Nephro-Matti) 1 tab PO 0800 [facility] Last Admin: 07/01/17 10:36 Dose: 1 tab Physical Exam - Constitutional Appears: Non-toxic, No Acute Distress - Head Exam Head Exam: ATRAUMATIC, NORMAL INSPECTION, NORMOCEPHALIC - Eye Exam Eye Exam: EOMI, Normal appearance - ENT Exam ENT Exam: Mucous Membranes Moist, Normal Exam - Neck Exam Neck exam: Positive for: Full Rom, Normal Inspection - Respiratory Exam Respiratory Exam: NORMAL BREATHING PATTERN. absent: Respiratory Distress - Cardiovascular Exam Cardiovascular Exam: REGULAR RHYTHM, +S1, +S2 - GI/Abdominal Exam GI & Abdominal Exam: Normal Bowel Sounds, Soft. absent: Distended, Firm, Guarding - Rectal Exam Rectal Exam: Deferred - Extremities Exam Extremities exam: Positive for: pedal edema (bilaterally) - Neurological Exam Neurological exam: Alert, CN II-XII Intact, Oriented x3 - Psychiatric Exam Psychiatric exam: Normal Affect, Normal Mood - Skin Skin Exam: Dry, Intact, Normal Color, Warm Results - Vital Signs Recent Vital Signs: Last Vital Signs Temp 98.0 F 07/01/17 07:30 Pulse 65 07/01/17 07:40 Resp 20 07/01/17 07:30 BP 138/71 07/01/17 10:01 Pulse Ox 100 07/01/17 07:30 - Labs Result Diagrams: 07/01/17 06:57 07/01/17 06:57 Labs: Laboratory Results - last 24 hr 06/28/17 06/30/17 06/30/17 14:00 16:42 21:27 WBC RBC Hgb Hct MCV MCH MCHC RDW Plt Count MPV Neut % (Auto) Lymph % (Auto) [place] % (Auto) Eos % (Auto) Baso % (Auto) Neut # (Auto) Lymph # (Auto) [place] # (Auto) Eos # (Auto) Baso # (Auto) Sodium Potassium Chloride Carbon Dioxide Anion Gap BUN Creatinine Est GFR ( Amer) Est GFR (Non-Af Amer) POC Glucose (mg/dL) 135 H 168 H Random Glucose Calcium Phosphorus Magnesium Total Bilirubin AST ALT Alkaline Phosphatase Total Protein Albumin Globulin Albumin/Globulin Ratio CANDY Nuclear Membr Pat Negative Tot [employer]/Lambda Ratio 1.88 [employer] Light Chain Anal 256 Lambda Light Chain Anal 136 07/01/17 07/01/17 07/01/17 06:51 06:57 06:57 WBC 6.1 RBC 3.18 L Hgb 9.3 L Hct 27.2 L MCV 85.7 MCH 29.3 MCHC 34.2 RDW 14.8 H Plt Count 299 MPV 8.4 Neut % (Auto) 73.8 Lymph % (Auto) 14.5 L [place] % (Auto) 8.0 Eos % (Auto) 2.7 Baso % (Auto) 1.0 Neut # (Auto) 4.5 Lymph # (Auto) 0.9 L [place] # (Auto) 0.5 Eos # (Auto) 0.2 Baso # (Auto) 0.1 Sodium 132 Potassium 4.7 Chloride 98 Carbon Dioxide 23 Anion Gap 16 BUN 48 H Creatinine 3.9 H Est GFR ( Amer) 14 Est GFR (Non-Af Amer) 12 POC Glucose (mg/dL) 179 H Random Glucose 179 H Calcium 8.7 Phosphorus 5.6 H Magnesium 2.1 Total Bilirubin 0.8 AST 28 ALT 28 Alkaline Phosphatase 74 Total Protein 6.1 L Albumin 2.9 L Globulin 3.2 Albumin/Globulin Ratio 0.9 L CANDY Nuclear Membr Pat Tot [employer]/Lambda Ratio [employer] Light Chain Anal Lambda Light Chain Anal Assessment & Plan - Assessment and Plan (Free Text) Assessment: 61F w/ ESRD requiring HD access Plan: Plan for OR in AM - AVF creation, possible permacath placement Left UE precautions NPO pMN FU B/L UE U/S Further mgmt as per primary & nephro teams DW attending Alicia, PGY-1 - Date & Time Date: 07/01/17 Time: 16:10
[2017-07-02] MEDS: Albuterol-Ipratrop 3 mg / 0.5 (3 ml) UD INH SCH ×4 (01:23→19:18)
[2017-07-02] MEDS: (Novolin R) Insulin Human Regular 100 units/ml vial SC SCH ×4 (07:30→22:27)
[2017-07-02] MEDS: Multivitamin Vitamin B Complex (Nephro-Vite) Tab PO SCH (08:00)
[2017-07-02 08:34] LABS: BASO # 0.1 K/uL (0.0-0.2); BASO % 1.1 % (0.0-2.0); EOS # 0.2 K/uL (0.0-0.7); EOS % 3.3 % (0.0-4.0); HEMOGLOBIN 9.4 g/dL (11.0-16.0); LYMPH # 0.9 K/uL (1.0-4.3); LYMPH % 16.1 % (20.0-40.0); MEAN CELL VOLUME 86.3 fL (81.0-99.0); MEAN CORPUSCULAR HEMOGLOBIN 29.5 pg (27.0-31.0); MEAN CORPUSCULAR HGB CONC 34.2 g/dL (33.0-37.0); MEAN PLATELET VOLUME 8.3 fL (7.2-11.7); MONO # 0.7 K/uL (0.0-0.8); MONO % 11.3 % (0.0-10.0); NEUT % 68.2 % (50.0-75.0); NRBC % 0.1 % (0.0-2.0); RBC 3.2 Mil/uL (3.80-5.20); RED CELL DISTRIBUTION WIDTH 15.1 % (11.5-14.5); WHITE BLOOD COUNT 5.9 K/uL (4.8-10.8)
[2017-07-02 08:42] LABS: CALCIUM 8.5 mg/dl (8.6-10.4)
--- NOTE | 2017-07-02 09:07 | CP.PCM.PN ---
<YolieStarr - Last Filed: 07/02/17 10:29> Subjective - Date & Time of Evaluation Date of Evaluation: 07/02/17 Time of Evaluation: 09:07 - Subjective Subjective: Progress Note Patient seen and examined with surgery team at bedside. Patient is set to go to OR today for AVF and possible permacath. Per nephrology, patient does not need dialysis at this time but may very well need it in the future. Patient is aware , patient is understanding. Patient is in cheerful disposition. Patient has no complaints overnight. Patient denies fever, chills, chest pain, nausea, vomiting, diarrhea. Patient was NPO after midnight. Objective - Vital Signs/Intake and Output Vital Signs (last 24 hours): Temp Pulse Resp BP Pulse Ox 97.8 F 73 20 142/78 95 07/02/17 07:53 07/02/17 07:53 07/02/17 07:53 07/02/17 07:53 07/02/17 07:53 - Medications Medications: Current Medications Acetaminophen (Tylenol 325mg Tab) 650 mg PO Q6 PRN PRN Reason: Pain, moderate (4-7) Albuterol/Ipratropium (Duoneb 3 Mg/0.5 Mg (3 Ml) Ud) 3 ml INH RQ6 [facility] Last Admin: 07/02/17 07:32 Dose: 3 ml Aspirin (Aspirin Chewable) 81 mg PO DAILY [facility] Last Admin: 07/01/17 10:00 Dose: 81 mg Bisacodyl (Dulcolax) 5 mg PO DAILY PRN PRN Reason: Constipation Carvedilol (Coreg) 25 mg PO BID [facility] Last Admin: 07/01/17 17:26 Dose: 25 mg Clonidine HCl (Catapres) 0.1 mg PO BID [facility] Last Admin: 07/01/17 17:25 Dose: 0.1 mg Dextrose (Dextrose 50% Inj) 0 ml IV STAT PRN; Protocol PRN Reason: Hypoglycemia Protocol Dextrose (Glutose 15) 0 gm PO ONCE PRN; Protocol PRN Reason: Hypoglycemia Protocol Ergocalciferol (Drisdol 50,000 Intl Units Cap) 1 cap PO Q7D [facility] Last Admin: 06/28/17 16:17 Dose: 1 cap Famotidine (Pepcid) 20 mg PO DAILY [facility] Last Admin: 07/01/17 10:00 Dose: 20 mg Ferrous Gluconate (Fergon) 324 mg PO TID [facility] Last Admin: 07/01/17 17:26 Dose: 324 mg Furosemide (Lasix) 80 mg IVP BID [facility] Last Admin: 07/01/17 17:25 Dose: 80 mg Gabapentin (Neurontin) 100 mg PO DAILY [facility] Glucagon (Glucagen Diagnostic Kit) 0 mg IM STAT PRN; Protocol PRN Reason: Hypoglycemia Protocol Hydralazine HCl (Apresoline) 10 mg IVP Q6H PRN PRN Reason: SBP>160 Last Admin: 06/30/17 00:46 Dose: 10 mg Hydralazine HCl (Apresoline) 50 mg PO Q6 [facility] Last Admin: 07/02/17 05:47 Dose: 50 mg Dextrose (Dextrose 5% In Water 1000 Ml) 1,000 mls @ 0 mls/hr IV .Q0M PRN; Protocol; Per Protocol PRN Reason: Hypoglycemia Protocol Ceftriaxone Sodium 1 gm/ (Sodium Chloride) 100 mls @ 100 mls/hr IVPB Q24H [facility] PRN Reason: Protocol Last Admin: 07/01/17 13:00 Dose: 100 mls/hr Insulin Human Isoph/Insulin Regular (Novolin 70/30 (70/30 Units/Ml) 10 Ml) 20 units SC Q12H [facility] Last Admin: 07/01/17 22:04 Dose: 20 units Insulin Human Regular (Novolin R) 0 unit SC ACHS [facility] PRN Reason: Protocol Last Admin: 07/01/17 22:54 Dose: Not Given Nifedipine (Procardia Xl) 30 mg PO DAILY [facility] Last Admin: 07/01/17 10:00 Dose: 30 mg Sevelamer Carbonate (Renvela) 800 mg PO TIDCC [facility] Vitamin B Complex/Vit C/Folic Acid (Nephro-Matti) 1 tab PO 0800 [facility] Last Admin: 07/01/17 10:36 Dose: 1 tab - Labs Labs: 07/02/17 08:16 07/02/17 08:16 PT 11.0 SECONDS (9.7-12.2) 07/02/17 08:16 INR 1.0 07/02/17 08:16 APTT 30 SECONDS (21-34) 07/02/17 08:16 - Additional Findings Additional findings: - Constitutional Appears: Cachectic, Chronically Ill - Head Exam Head Exam: ATRAUMATIC, NORMAL INSPECTION - Eye Exam Eye Exam: EOMI, Normal appearance, PERRL - ENT Exam ENT Exam: Mucous Membranes Moist - Respiratory Exam Respiratory Exam: Decreased Breath Sounds, NORMAL BREATHING PATTERN. absent: Rales, Rhonchi, Wheezes, Stridor - Cardiovascular Exam Cardiovascular Exam: REGULAR RHYTHM, +S1, +S2. absent: JVD - GI/Abdominal Exam GI & Abdominal Exam: Normal Bowel Sounds, Soft. absent: Tenderness - Extremities Exam Extremities exam: Positive for: normal capillary refill, pedal edema (bilateral pitting edema 2+), pedal pulses present. Negative for: calf tenderness, tenderness - Neurological Exam Neurological exam: Alert, Oriented x3 - Psychiatric Exam Psychiatric exam: Normal Affect, Normal Mood - Skin Skin Exam: Dry, Intact, Normal Color Assessment and Plan - Assessment and Plan (Free Text) Assessment: 1.) Shortness of breath D-dimer: 449 - VQ Scan: low probability for PE - Heparin drip discontinued BiPAP prn Lasix 80 mg IV BID chest x-ray: pulmonary vascular congestion changes with bilateral lower lobe alveolar-type infiltrates atelectasis and bilateral effusions Monitor I/O Chest CT w/o contrast shows moderate pleural effusion and no evidence of malignancy On 06/30/17, patient had 300 cc of pleural fluid drained via thoracentesis 2.) New onset CHF Cardiology Consult: Dr. Granda --> help appreciated PrBnP: [id number] Lipid Panel shows TGs 60, LDL 128, HDL 79 echo: EF <40% Avoiding MELISA/ARB due to renal failure Coreg 25 mg PO BID 3.) Bilateral LE Swelling Lasix 80mg IV BID Monitory I/O Fluid restriction 1000ml Venous dopplers negative for DVT 4.) History of HTN Monitor BP Hydralazine 10mg IV Q6 prn Hydrazaline 50mg po QID [facility] 25 mg PO BID Nifedipine XL 30 mg PO daily Per nephro, clonidine 0.1 mg PO BID 5.) History of DM Type II Accuchecks ISS Hypoglycemia protocol Hemoglobin A1c 10.6 NPH/Regular 20 units SC Q12H 6.) History of Chronic Kidney Injury Elevated BUN/Cr likely due to long-standing HTN and DM Nephro Consult: Dr. Mcdowell, help appreciated Renal ultrasound shows medical renal disease Immunology workup to ascertain for other etiologies of kidney disease has been negative thus far Nephrology has recommended vascular surgery consult for possible AVF. Patient consented and will have it done today 07/02 Per nephrology, patient does not need dialysis today. 7.) Hyperkalemia possibly secondary to chronic kidney injury Continue to monitor 8.) UTI Rocephin 1 gm IV daily started on 06/28/17 9.) Prophylaxis Heparin drip discontinued. Due to elevated PTT, will wait until tomorrow before starting Heparin SC Pepcid 20mg daily physical therapy eval and treat Patient needs a cane, prescription given to pillowcase folder 07/[address] Hameed <Giacomo Hameed - Last Filed: 07/02/17 15:07> Objective - Vital Signs/Intake and Output Vital Signs (last 24 hours): Temp Pulse Resp BP Pulse Ox 97.8 F 73 20 145/79 95 07/02/17 07:53 07/02/17 07:53 07/02/17 07:53 07/02/17 10:30 07/02/17 07:53 - Medications Medications: Current Medications Acetaminophen (Tylenol 325mg Tab) 650 mg PO Q6 PRN PRN Reason: Pain, moderate (4-7) Albuterol/Ipratropium (Duoneb 3 Mg/0.5 Mg (3 Ml) Ud) 3 ml INH RQ6 [facility] Last Admin: 07/02/17 12:59 Dose: 3 ml Aspirin (Aspirin Chewable) 81 mg PO DAILY [facility] Last Admin: 07/02/17 10:00 Dose: Not Given Bisacodyl (Dulcolax) 5 mg PO DAILY PRN PRN Reason: Constipation Carvedilol (Coreg) 25 mg PO BID [facility] Last Admin: 07/02/17 10:00 Dose: Not Given Clonidine HCl (Catapres) 0.1 mg PO BID [facility] Last Admin: 07/02/17 10:00 Dose: Not Given Dextrose (Dextrose 50% Inj) 0 ml IV STAT PRN; Protocol PRN Reason: Hypoglycemia Protocol Dextrose (Glutose 15) 0 gm PO ONCE PRN; Protocol PRN Reason: Hypoglycemia Protocol Ergocalciferol (Drisdol 50,000 Intl Units Cap) 1 cap PO Q7D [facility] Last Admin: 06/28/17 16:17 Dose: 1 cap Famotidine (Pepcid) 20 mg PO DAILY [facility] Last Admin: 07/02/17 10:24 Dose: Not Given Ferrous Gluconate (Fergon) 324 mg PO TID [facility] Last Admin: 07/02/17 10:00 Dose: Not Given Furosemide (Lasix) 80 mg IVP BID [facility] Last Admin: 07/02/17 10:30 Dose: 80 mg Gabapentin (Neurontin) 100 mg PO DAILY [facility] Last Admin: 07/02/17 10:00 Dose: Not Given Glucagon (Glucagen Diagnostic Kit) 0 mg IM STAT PRN; Protocol PRN Reason: Hypoglycemia Protocol Hydralazine HCl (Apresoline) 10 mg IVP Q6H PRN PRN Reason: SBP>160 Last Admin: 06/30/17 00:46 Dose: 10 mg Hydralazine HCl (Apresoline) 50 mg PO Q6 [facility] Last Admin: 07/02/17 05:47 Dose: 50 mg Dextrose (Dextrose 5% In Water 1000 Ml) 1,000 mls @ 0 mls/hr IV .Q0M PRN; Protocol; Per Protocol PRN Reason: Hypoglycemia Protocol Ceftriaxone Sodium 1 gm/ (Sodium Chloride) 100 mls @ 100 mls/hr IVPB Q24H [facility] PRN Reason: Protocol Last Admin: 07/01/17 13:00 Dose: 100 mls/hr Insulin Human Isoph/Insulin Regular (Novolin 70/30 (70/30 Units/Ml) 10 Ml) 20 units SC Q12H [facility] Last Admin: 07/02/17 10:00 Dose: Not Given Insulin Human Regular (Novolin R) 0 unit SC ACHS [facility] PRN Reason: Protocol Last Admin: 07/02/17 07:30 Dose: Not Given Nifedipine (Procardia Xl) 30 mg PO DAILY [facility] Last Admin: 07/02/17 10:24 Dose: Not Given Sevelamer Carbonate (Renvela) 800 mg PO TIDCC [facility] Vitamin B Complex/Vit C/Folic Acid (Nephro-Matti) 1 tab PO 0800 [facility] Last Admin: 07/02/17 08:00 Dose: Not Given - Labs Labs: 07/02/17 08:16 07/02/17 08:16 PT 11.0 SECONDS (9.7-12.2) 07/02/17 08:16 INR 1.0 07/02/17 08:16 APTT 30 SECONDS (21-34) 07/02/17 08:16 Attending/Attestation - Attestation I have personally seen and examined this patient.: Yes I have fully participated in the care of the patient.: Yes I have reviewed all pertinent clinical information, including history, physical exam and plan: Yes Notes (Text): Medical attending: The patient was seen and examined by me, agree with the above note by the infertility medical assistant. When we saw the patient she was not in any acute distress, she was not short of breath, denied palpitations, denied chest pain. She did report some ongoing bilateral foot pain. The patient was pending going to the OR today for placement of dialysis access. Yesterday we had a conversation about this, and she was agreeable to the procedure. At this time are to continue the current regimen for blood pressure control, as well as diabetes control Thank you very much, Giacomo Hameed 07/02/17 15:07
[2017-07-02] MEDS: (Novolin 70/30) NPH/Regular 70/30 Units/ml 10 ml vial SC SCH ×2 (10:00→22:26)
[2017-07-02] MEDS: NIFEdipine 30 mg ER Tab PO SCH (10:24)
--- NOTE | 2017-07-02 11:12 | CP.PCM.PN ---
Subjective - Date & Time of Evaluation Date of Evaluation: 07/02/17 Time of Evaluation: 10:30 - Subjective Subjective: Podiatry Consult Note- Dr. Keane 61 yo female patient seen today for b/l foot ulcerations. Pt appears AAOX3, pleasant and conversational. Does complain of some tenderness to both feet, pain is controlled with medication. She denies f/n/v/c/sob/cp/weakness or dizziness at this time. Objective - Vital Signs/Intake and Output Vital Signs (last 24 hours): Temp Pulse Resp BP Pulse Ox 97.8 F 73 20 145/79 95 07/02/17 07:53 07/02/17 07:53 07/02/17 07:53 07/02/17 10:30 07/02/17 07:53 - Medications Medications: Current Medications Acetaminophen (Tylenol 325mg Tab) 650 mg PO Q6 PRN PRN Reason: Pain, moderate (4-7) Albuterol/Ipratropium (Duoneb 3 Mg/0.5 Mg (3 Ml) Ud) 3 ml INH RQ6 [facility] Last Admin: 07/02/17 07:32 Dose: 3 ml Aspirin (Aspirin Chewable) 81 mg PO DAILY [facility] Last Admin: 07/02/17 10:00 Dose: Not Given Bisacodyl (Dulcolax) 5 mg PO DAILY PRN PRN Reason: Constipation Carvedilol (Coreg) 25 mg PO BID [facility] Last Admin: 07/02/17 10:00 Dose: Not Given Clonidine HCl (Catapres) 0.1 mg PO BID [facility] Last Admin: 07/02/17 10:00 Dose: Not Given Dextrose (Dextrose 50% Inj) 0 ml IV STAT PRN; Protocol PRN Reason: Hypoglycemia Protocol Dextrose (Glutose 15) 0 gm PO ONCE PRN; Protocol PRN Reason: Hypoglycemia Protocol Ergocalciferol (Drisdol 50,000 Intl Units Cap) 1 cap PO Q7D [facility] Last Admin: 06/28/17 16:17 Dose: 1 cap Famotidine (Pepcid) 20 mg PO DAILY [facility] Last Admin: 07/02/17 10:24 Dose: Not Given Ferrous Gluconate (Fergon) 324 mg PO TID [facility] Last Admin: 07/02/17 10:00 Dose: Not Given Furosemide (Lasix) 80 mg IVP BID [facility] Last Admin: 07/02/17 10:30 Dose: 80 mg Gabapentin (Neurontin) 100 mg PO DAILY [facility] Last Admin: 07/02/17 10:00 Dose: Not Given Glucagon (Glucagen Diagnostic Kit) 0 mg IM STAT PRN; Protocol PRN Reason: Hypoglycemia Protocol Hydralazine HCl (Apresoline) 10 mg IVP Q6H PRN PRN Reason: SBP>160 Last Admin: 06/30/17 00:46 Dose: 10 mg Hydralazine HCl (Apresoline) 50 mg PO Q6 [facility] Last Admin: 07/02/17 05:47 Dose: 50 mg Dextrose (Dextrose 5% In Water 1000 Ml) 1,000 mls @ 0 mls/hr IV .Q0M PRN; Protocol; Per Protocol PRN Reason: Hypoglycemia Protocol Ceftriaxone Sodium 1 gm/ (Sodium Chloride) 100 mls @ 100 mls/hr IVPB Q24H [facility] PRN Reason: Protocol Last Admin: 07/01/17 13:00 Dose: 100 mls/hr Insulin Human Isoph/Insulin Regular (Novolin 70/30 (70/30 Units/Ml) 10 Ml) 20 units SC Q12H [facility] Last Admin: 07/02/17 10:00 Dose: Not Given Insulin Human Regular (Novolin R) 0 unit SC ACHS [facility] PRN Reason: Protocol Last Admin: 07/02/17 07:30 Dose: Not Given Nifedipine (Procardia Xl) 30 mg PO DAILY [facility] Last Admin: 07/02/17 10:24 Dose: Not Given Sevelamer Carbonate (Renvela) 800 mg PO TIDCC [facility] Vitamin B Complex/Vit C/Folic Acid (Nephro-Matti) 1 tab PO 0800 [facility] Last Admin: 07/02/17 08:00 Dose: Not Given - Labs Labs: 07/02/17 08:16 07/02/17 08:16 PT 11.0 SECONDS (9.7-12.2) 07/02/17 08:16 INR 1.0 07/02/17 08:16 APTT 30 SECONDS (21-34) 07/02/17 08:16 - Constitutional Appears: Non-toxic, No Acute Distress - Extremities Exam Extremities Exam: absent: Calf Tenderness Additional comments: B/L lower ext exam: VASC- pedal pulses are palpable bl, skin temp wnl bl, cap refill < 3 sec to all digits, edema to b/l legs and feet much improved today with return of skin lines NEURO- gross and protective pedal sensation intact DERM- 4.0 x5.0 superficial ulcer noted to dorsum of right foot (lanced bullous lesion) with minimal serous drainage noted, scattered superficial ulcerations noted to dorsum of left foot with no drainage and no signs infection MSK-slight tenderness to palpation of wounds b/l feet , MMT is 5/5 all directions - Neurological Exam Neurological Exam: Alert, Awake, Oriented x3 - Psychiatric Exam Psychiatric exam: Normal Affect, Normal Mood Assessment and Plan - Assessment and Plan (Free Text) Assessment: 61 yo diabetic female with ulcerations of b/l feet 2/2 acute CHF exacerbation/ lower extremity edema Plan: Pt S&E at bedside with attending Dr. Hameed present Plan discussed with attending Dr. Keane chart, labs and vitals reviewed Verbal consent obtained for bedside deroofing of right dorsal foot blister. Blister deroofed in its entirety to reveal a 100% granular wound base with minimal serosanguinous drainage, neg PTB, neg malodor, flushed with saline. Pt tolerated procedure well without complaint or incident. b/l feet dressed with xeroform,DSD, kerlix stable per podiatry will follow
[2017-07-02] MEDS ORDERED: Propofol 10 mg/ml Inj (20 ML) ONE (13:37)
[2017-07-02] MEDS ORDERED: Midazolam 2 MG/2 ML VIAL ONE (13:37)
[2017-07-02] MEDS ORDERED: Lidocaine Hydrochloride 10 ML INJ ONE (13:41)
[2017-07-02] MEDS ORDERED: HEPARIN-NS 5,000 UNITS/500 ML 5,000 UNIT/500 ML BAG IV ONE (13:41)
[2017-07-02] MEDS ORDERED: Neostigmine Methylsulfate 3mg/3ml Syringe IV ONE (15:55)
--- NOTE | 2017-07-02 16:18 | PCM.SURG1 ---
Surgeon's Initial Post Op Note - Surgeon's Notes Surgeon: Dr. Lai Dry Chain Operator: Dr. Molina PGY-3, Narinder MS3 Type of Anesthesia: General Endo Anesthesia Administered By: Dr. Rahman Pre-Operative Diagnosis: End Stage Renal Disease Operative Findings: See operative report Post-Operative Diagnosis: Same Operation Performed: R Hand Snuff box AV fistula Specimen/Specimens Removed: none Estimated Blood Loss: EBL {In ML}: 10 Blood Products Given: N/A Drains Used: No Drains Post-Op Condition: Good Date of Surgery/Procedure: 07/02/17 Time of Surgery/Procedure: 16:18
[2017-07-02] MEDS ORDERED: HYDROmorphone 0.5 mg/0.5 ml ISec IVP PRN (16:19)
[2017-07-02] MEDS ORDERED: HYDROmorphone 1 mg/ml ISec ONE (17:13)
[2017-07-02 18:10] VITALS: RESP 20
[2017-07-03] MEDS: Albuterol-Ipratrop 3 mg / 0.5 (3 ml) UD INH SCH (01:31)
--- NOTE | 2017-07-03 01:48 | OP ---
PROCEDURE DATE: 07/02/2017 PREOPERATIVE DIAGNOSIS: Renal failure. POSTOPERATIVE DIAGNOSIS: Renal failure. PROCEDURE CARRIED OUT: Snuffbox fistula, right wrist. SURGEON: Vinayak Lai Jr., MD. WAX ENGRAVER: Dr. Molina. ANESTHESIOLOGIST: Mr. Adorno. ANESTHESIA: General. INDICATIONS: The patient is a middle-aged woman with renal insufficiency, who is now requiring dialysis. OPERATIVE FINDINGS: There were no veins available in the left arm except for the brachial vein. In the right arm, after the patient was induced with anesthesia, the cephalic vein at the wrist seemed to stand out. An end to side fistula was then created to the branch of the superficial femoral artery using loupe magnification and heparin anticoagulation. DESCRIPTION OF PROCEDURE: The patient was given general anesthesia. After this had been done, we then dissected out the vein and the adjacent artery as an end of vein to side of artery anastomosis was then carried out using loupe magnification and heparin anticoagulation. After this was completed, there was we had to take this down and then redo it, and after we did this, it was much better with very good flow. Heparin was not reversed. At the end of the procedure, the wound was closed with Monocryl and nylon sutures and the skin was closed. Blood loss was 20 to 25 mL. Operation carried out, snuffbox fistula of the right wrist. Vinayak Lai Jr., MD cc: Roque Ruth MD
[2017-07-03 07:01] LABS: CALCIUM 8.1 mg/dl (8.6-10.4)
[2017-07-03 07:08] LABS: BASO # 0.1 K/uL (0.0-0.2); BASO % 1.3 % (0.0-2.0); EOS # 0.2 K/uL (0.0-0.7); HEMOGLOBIN 8.5 g/dL (11.0-16.0); LYMPH # 0.8 K/uL (1.0-4.3); LYMPH % 15.7 % (20.0-40.0); MEAN CELL VOLUME 86.5 fL (81.0-99.0); MEAN CORPUSCULAR HEMOGLOBIN 29.6 pg (27.0-31.0); MEAN CORPUSCULAR HGB CONC 34.2 g/dL (33.0-37.0); MEAN PLATELET VOLUME 8.3 fL (7.2-11.7); MONO # 0.7 K/uL (0.0-0.8); MONO % 12.9 % (0.0-10.0); NEUT # 3.6 K/uL (1.8-7.0); NEUT % 67.1 % (50.0-75.0); RBC 2.88 Mil/uL (3.80-5.20); RED CELL DISTRIBUTION WIDTH 14.7 % (11.5-14.5); WHITE BLOOD COUNT 5.3 K/uL (4.8-10.8)
--- NOTE | 2017-07-03 07:35 | CP.PCM.PN ---
Subjective - Date & Time of Evaluation Date of Evaluation: 07/03/17 Time of Evaluation: 07:32 - Subjective Subjective: Vascular Surgery: Dr. Lai pt seen and examined. No acute overnight events. States she feels ok but is having post-op pain in her R hand around incision site. Also reports pain in R foot due to ulcers. Tolerating diet and denies other complaints at this time. Objective - Vital Signs/Intake and Output Vital Signs (last 24 hours): Temp Pulse Resp BP Pulse Ox 98.7 F 73 20 142/69 99 07/02/17 23:30 07/03/17 01:00 07/02/17 23:30 07/02/17 23:30 07/02/17 23:30 - Medications Medications: Current Medications Acetaminophen (Tylenol 325mg Tab) 650 mg PO Q6 PRN PRN Reason: Pain, moderate (4-7) Last Admin: 07/03/17 06:47 Dose: 650 mg Aspirin (Aspirin Chewable) 81 mg PO DAILY [facility] Last Admin: 07/02/17 10:00 Dose: Not Given Bisacodyl (Dulcolax) 5 mg PO DAILY PRN PRN Reason: Constipation Carvedilol (Coreg) 25 mg PO BID [facility] Last Admin: 07/02/17 18:04 Dose: 25 mg Clonidine HCl (Catapres) 0.1 mg PO BID [facility] Last Admin: 07/02/17 22:25 Dose: 0.1 mg Dextrose (Dextrose 50% Inj) 0 ml IV STAT PRN; Protocol PRN Reason: Hypoglycemia Protocol Dextrose (Glutose 15) 0 gm PO ONCE PRN; Protocol PRN Reason: Hypoglycemia Protocol Ergocalciferol (Drisdol 50,000 Intl Units Cap) 1 cap PO Q7D [facility] Last Admin: 06/28/17 16:17 Dose: 1 cap Famotidine (Pepcid) 20 mg PO DAILY [facility] Last Admin: 07/02/17 10:24 Dose: Not Given Ferrous Gluconate (Fergon) 324 mg PO TID [facility] Last Admin: 07/02/17 19:41 Dose: 324 mg Furosemide (Lasix) 80 mg IVP BID [facility] Last Admin: 07/02/17 22:26 Dose: 80 mg Gabapentin (Neurontin) 100 mg PO DAILY [facility] Last Admin: 07/02/17 10:00 Dose: Not Given Glucagon (Glucagen Diagnostic Kit) 0 mg IM STAT PRN; Protocol PRN Reason: Hypoglycemia Protocol Hydralazine HCl (Apresoline) 10 mg IVP Q6H PRN PRN Reason: SBP>160 Last Admin: 06/30/17 00:46 Dose: 10 mg Hydralazine HCl (Apresoline) 50 mg PO Q6 [facility] Last Admin: 07/03/17 06:48 Dose: 50 mg Dextrose (Dextrose 5% In Water 1000 Ml) 1,000 mls @ 0 mls/hr IV .Q0M PRN; Protocol; Per Protocol PRN Reason: Hypoglycemia Protocol Ceftriaxone Sodium 1 gm/ (Sodium Chloride) 100 mls @ 100 mls/hr IVPB Q24H [facility] PRN Reason: Protocol Last Admin: 07/01/17 13:00 Dose: 100 mls/hr Insulin Human Isoph/Insulin Regular (Novolin 70/30 (70/30 Units/Ml) 10 Ml) 20 units SC Q12H [facility] Last Admin: 07/02/17 22:26 Dose: 20 units Insulin Human Regular (Novolin R) 0 unit SC ACHS [facility] PRN Reason: Protocol Last Admin: 07/02/17 22:27 Dose: Not Given Nifedipine (Procardia Xl) 30 mg PO DAILY [facility] Last Admin: 07/02/17 10:24 Dose: Not Given Sevelamer Carbonate (Renvela) 800 mg PO TIDCC [facility] Last Admin: 07/02/17 19:41 Dose: 800 mg Vitamin B Complex/Vit C/Folic Acid (Nephro-Matti) 1 tab PO 0800 [facility] Last Admin: 07/02/17 08:00 Dose: Not Given - Labs Labs: 07/03/17 06:29 07/03/17 06:29 PT 11.0 SECONDS (9.7-12.2) 07/02/17 08:16 INR 1.0 07/02/17 08:16 APTT 30 SECONDS (21-34) 07/02/17 08:16 - Constitutional Appears: Well, No Acute Distress - Head Exam Head Exam: ATRAUMATIC, NORMOCEPHALIC - Eye Exam Eye Exam: Normal appearance - ENT Exam ENT Exam: Mucous Membranes Moist - Respiratory Exam Respiratory Exam: NORMAL BREATHING PATTERN - Cardiovascular Exam Cardiovascular Exam: RRR - GI/Abdominal Exam GI & Abdominal Exam: Soft - Extremities Exam Additional comments: R hand snuff box AVF with palpable thrill; dressing clean/dry/intact - Neurological Exam Neurological Exam: Alert, Awake, Oriented x3 - Skin Skin Exam: Dry, Warm Assessment and Plan - Assessment and Plan (Free Text) Assessment: 61F s/p snuff box AVF; POD#1 Plan: - cont R foot ulcer management per podiatry recs - no other surgical intervention at this time - d/w Dr. Ming Molina, PGY-3
[2017-07-03] MEDS: (Novolin R) Insulin Human Regular 100 units/ml vial SC SCH ×4 (07:45→22:38)
--- NOTE | 2017-07-03 08:25 | CP.PCM.PN ---
Subjective - Date & Time of Evaluation Date of Evaluation: 07/03/17 Time of Evaluation: 08:10 - Subjective Subjective: Patient was seen and examined by me. Yesterday she had creation of snuff box AVF. She is POD 1 She reported some pain at the wrist - however her main concern today was pain at the dorsum area of the foot where she has the superficial ulcers on. Currently has dressing, no drainage over the foot. She explains it is very difficult for her to walk due to pain. Tylenol only helps minimally. We will start her on pain medications. Accuchecks have been stable: 98, 103, 214, 102 Blood pressures: Higher today with systolics in the 160s, probably also related to pain. Objective - Vital Signs/Intake and Output Vital Signs (last 24 hours): Temp Pulse Resp BP Pulse Ox 98.7 F 73 20 142/69 99 07/02/17 23:30 07/03/17 01:00 07/02/17 23:30 07/02/17 23:30 07/02/17 23:30 - Medications Medications: Current Medications Acetaminophen (Tylenol 325mg Tab) 650 mg PO Q6 PRN PRN Reason: Pain, moderate (4-7) Last Admin: 07/03/17 06:47 Dose: 650 mg Aspirin (Aspirin Chewable) 81 mg PO DAILY [facility] Last Admin: 07/02/17 10:00 Dose: Not Given Bisacodyl (Dulcolax) 5 mg PO DAILY PRN PRN Reason: Constipation Carvedilol (Coreg) 25 mg PO BID [facility] Last Admin: 07/02/17 18:04 Dose: 25 mg Clonidine HCl (Catapres) 0.1 mg PO BID [facility] Last Admin: 07/02/17 22:25 Dose: 0.1 mg Dextrose (Dextrose 50% Inj) 0 ml IV STAT PRN; Protocol PRN Reason: Hypoglycemia Protocol Dextrose (Glutose 15) 0 gm PO ONCE PRN; Protocol PRN Reason: Hypoglycemia Protocol Ergocalciferol (Drisdol 50,000 Intl Units Cap) 1 cap PO Q7D [facility] Last Admin: 06/28/17 16:17 Dose: 1 cap Famotidine (Pepcid) 20 mg PO DAILY [facility] Last Admin: 07/02/17 10:24 Dose: Not Given Ferrous Gluconate (Fergon) 324 mg PO TID [facility] Last Admin: 07/02/17 19:41 Dose: 324 mg Furosemide (Lasix) 80 mg IVP BID [facility] Last Admin: 07/02/17 22:26 Dose: 80 mg Gabapentin (Neurontin) 100 mg PO DAILY [facility] Last Admin: 07/02/17 10:00 Dose: Not Given Glucagon (Glucagen Diagnostic Kit) 0 mg IM STAT PRN; Protocol PRN Reason: Hypoglycemia Protocol Hydralazine HCl (Apresoline) 10 mg IVP Q6H PRN PRN Reason: SBP>160 Last Admin: 06/30/17 00:46 Dose: 10 mg Hydralazine HCl (Apresoline) 50 mg PO Q6 [facility] Last Admin: 07/03/17 06:48 Dose: 50 mg Dextrose (Dextrose 5% In Water 1000 Ml) 1,000 mls @ 0 mls/hr IV .Q0M PRN; Protocol; Per Protocol PRN Reason: Hypoglycemia Protocol Ceftriaxone Sodium 1 gm/ (Sodium Chloride) 100 mls @ 100 mls/hr IVPB Q24H [facility] PRN Reason: Protocol Last Admin: 07/01/17 13:00 Dose: 100 mls/hr Insulin Human Isoph/Insulin Regular (Novolin 70/30 (70/30 Units/Ml) 10 Ml) 20 units SC Q12H [facility] Last Admin: 07/02/17 22:26 Dose: 20 units Insulin Human Regular (Novolin R) 0 unit SC ACHS [facility] PRN Reason: Protocol Last Admin: 07/02/17 22:27 Dose: Not Given Ketorolac Tromethamine (Toradol) 30 mg IVP STAT [facility] Stop: 07/03/17 08:23 Nifedipine (Procardia Xl) 30 mg PO DAILY [facility] Last Admin: 07/02/17 10:24 Dose: Not Given Oxycodone/Acetaminophen (Percocet 5/325 Mg Tab) 1 tab PO Q4H PRN PRN Reason: pain Stop: 07/06/17 08:22 Sevelamer Carbonate (Renvela) 800 mg PO TIDCC [facility] Last Admin: 07/02/17 19:41 Dose: 800 mg Vitamin B Complex/Vit C/Folic Acid (Nephro-Matti) 1 tab PO 0800 [facility] Last Admin: 07/02/17 08:00 Dose: Not Given - Labs Labs: 07/03/17 06:29 07/03/17 06:29 PT 11.0 SECONDS (9.7-12.2) 07/02/17 08:16 INR 1.0 07/02/17 08:16 APTT 30 SECONDS (21-34) 07/02/17 08:16 - Constitutional Appears: Non-toxic, No Acute Distress - Head Exam Head Exam: NORMAL INSPECTION, NORMOCEPHALIC - Eye Exam Eye Exam: EOMI, Normal appearance - ENT Exam ENT Exam: Mucous Membranes Moist - Respiratory Exam Respiratory Exam: Clear to Ausculation Bilateral, NORMAL BREATHING PATTERN - Cardiovascular Exam Cardiovascular Exam: REGULAR RHYTHM - GI/Abdominal Exam GI & Abdominal Exam: Soft, Normal Bowel Sounds - Extremities Exam Extremities Exam: Pedal Edema Additional comments: Minimal pedema edema - Neurological Exam Neurological Exam: Alert, Awake, Oriented x3 Neuro motor strength exam: Left Upper Extremity: 5, Right Upper Extremity: 5, Left Lower Extremity: 4, Right Lower Extremity: 4 - Psychiatric Exam Psychiatric exam: Normal Affect, Normal Mood - Skin Skin Exam: Normal Color, Warm Assessment and Plan - Assessment and Plan (Free Text) Assessment: 1.) Pleural Effusions - Shortness of breath 07/03/2017: Most fluid samples from 06/30 the thoracenteis returned and appear transudative so far - likely related to the CHF and CKD. She had 300 cc removed. Since being here her breathing has signifigantly improved. D-dimer: 449 - VQ Scan: low probability for PE - Heparin drip discontinued BiPAP prn Lasix 80 mg IV BID Chest x-ray: pulmonary vascular congestion changes with bilateral lower lobe alveolar-type infiltrates atelectasis and bilateral effusions Chest CT w/o contrast shows moderate pleural effusion and no evidence of malignancy 2.) New onset CHF 07/03/2017: The patient remains on lasix IV BID at this time Her weight has been from 168 on admission to 152 lbs Also on BB, Statin, ASA. The BNP is high - will always be high due to renal function. 3.) Bilateral LE Swelling 07/03/2017: Improving, still has minimal pitting edema however the swelling is no longer in the thighs. Lasix 80mg IV BID Venous dopplers negative for DVT 4.) History of HTN 07/03/2017: Higher today, just had surgery. If remains high despite pain medication then will need more BP medication. Hydralazine 10mg IV Q6 prn Hydrazaline 50mg po QID Coreg 25 mg PO BID Nifedipine XL 30 mg PO daily Per nephro, clonidine 0.1 mg PO BID 5.) History of DM Type II 07/14: Accuchecks have been ok 82, 98, 103, 214, 102 Hypoglycemia protocol Hemoglobin A1c 10.6 NPH/Regular 20 units SC Q12H 6.) History of Chronic Kidney Injury 07/03/2017: Status post creation of wrist area AVF. So far patient is hanging in there. She hasn't had K or Bicarb problems. Elevated BUN/Cr likely due to long-standing HTN and DM Appreciate nephrology seeing patient Renal ultrasound shows medical renal disease Immunology workup to ascertain for other etiologies of kidney disease has been negative thus far 7.) UTI 07/03/2017: Repeat the UA and UC + S Rocephin 1 gm IV daily started on 06/28/17 9.) Prophylaxis Heparin drip discontinued. Due to elevated PTT, will wait until tomorrow before starting Heparin SC Pepcid 20mg daily
[2017-07-03] MEDS: Multivitamin Vitamin B Complex (Nephro-Vite) Tab PO SCH (08:47)
[2017-07-03] MEDS: (Novolin 70/30) NPH/Regular 70/30 Units/ml 10 ml vial SC SCH ×2 (10:17→22:37)
[2017-07-03] MEDS: NIFEdipine 30 mg ER Tab PO SCH (10:18)
[2017-07-03] MEDS: Oxycodone/Acetaminophen 5/325 mg Tab PO PRN (11:13)
[2017-07-03] MEDS: Bisacodyl 5mg EC Tab PO PRN (14:36)
[2017-07-04] MEDS: Oxycodone/Acetaminophen 5/325 mg Tab PO PRN ×2 (07:31→13:29)
[2017-07-04] MEDS: (Novolin R) Insulin Human Regular 100 units/ml vial SC SCH ×4 (08:00→22:00)
--- NOTE | 2017-07-04 08:17 | CP.PCM.PN ---
Subjective - Date & Time of Evaluation Date of Evaluation: 07/04/17 Time of Evaluation: 07:00 - Subjective Subjective: Patient seen and examined at bedside this AM. No acute events overnight. Patient complains of headache and pain in the right elbow but denies any pain in the wrist. Objective - Vital Signs/Intake and Output Vital Signs (last 24 hours): Temp Pulse Resp BP Pulse Ox 98.3 F 72 20 152/66 H 97 07/03/17 23:55 07/04/17 01:00 07/03/17 23:55 07/03/17 23:55 07/03/17 23:55 - Medications Medications: Current Medications Acetaminophen (Tylenol 325mg Tab) 650 mg PO Q6 PRN PRN Reason: Pain, moderate (4-7) Last Admin: 07/03/17 06:47 Dose: 650 mg Aspirin (Aspirin Chewable) 81 mg PO DAILY [facility] Last Admin: 07/03/17 09:31 Dose: 81 mg Bisacodyl (Dulcolax) 5 mg PO DAILY PRN PRN Reason: Constipation Last Admin: 07/03/17 14:36 Dose: 5 mg Carvedilol (Coreg) 25 mg PO BID [facility] Last Admin: 07/03/17 22:29 Dose: 25 mg Clonidine HCl (Catapres) 0.1 mg PO BID [facility] Last Admin: 07/03/17 22:29 Dose: 0.1 mg Dextrose (Dextrose 50% Inj) 0 ml IV STAT PRN; Protocol PRN Reason: Hypoglycemia Protocol Dextrose (Glutose 15) 0 gm PO ONCE PRN; Protocol PRN Reason: Hypoglycemia Protocol Ergocalciferol (Drisdol 50,000 Intl Units Cap) 1 cap PO Q7D [facility] Last Admin: 06/28/17 16:17 Dose: 1 cap Famotidine (Pepcid) 20 mg PO DAILY [facility] Last Admin: 07/03/17 09:33 Dose: 20 mg Ferrous Gluconate (Fergon) 324 mg PO TID [facility] Last Admin: 07/03/17 18:40 Dose: 324 mg Furosemide (Lasix) 80 mg IVP BID [facility] Last Admin: 07/03/17 18:40 Dose: 80 mg Gabapentin (Neurontin) 100 mg PO DAILY [facility] Last Admin: 07/03/17 09:32 Dose: 100 mg Glucagon (Glucagen Diagnostic Kit) 0 mg IM STAT PRN; Protocol PRN Reason: Hypoglycemia Protocol Hydralazine HCl (Apresoline) 10 mg IVP Q6H PRN PRN Reason: SBP>160 Last Admin: 06/30/17 00:46 Dose: 10 mg Hydralazine HCl (Apresoline) 50 mg PO Q6 [facility] Last Admin: 07/04/17 06:30 Dose: 50 mg Ceftriaxone Sodium 1 gm/ (Sodium Chloride) 100 mls @ 100 mls/hr IVPB Q24H [facility] PRN Reason: Protocol Last Admin: 07/03/17 13:00 Dose: 100 mls/hr Insulin Human Isoph/Insulin Regular (Novolin 70/30 (70/30 Units/Ml) 10 Ml) 20 units SC Q12H [facility] Last Admin: 07/03/17 22:37 Dose: 20 units Insulin Human Regular (Novolin R) 0 unit SC ACHS [facility] PRN Reason: Protocol Last Admin: 07/03/17 22:38 Dose: Not Given Nifedipine (Procardia Xl) 30 mg PO DAILY [facility] Last Admin: 07/03/17 10:18 Dose: 30 mg Oxycodone/Acetaminophen (Percocet 5/325 Mg Tab) 1 tab PO Q4H PRN PRN Reason: pain Stop: 07/06/17 08:22 Last Admin: 07/04/17 07:31 Dose: 1 tab Sevelamer Carbonate (Renvela) 800 mg PO TIDCC [facility] Last Admin: 07/03/17 18:41 Dose: 800 mg Vitamin B Complex/Vit C/Folic Acid (Nephro-Matti) 1 tab PO 0800 [facility] Last Admin: 07/03/17 08:47 Dose: 1 tab - Labs Labs: 07/03/17 06:29 07/03/17 06:29 PT 11.0 SECONDS (9.7-12.2) 07/02/17 08:16 INR 1.0 07/02/17 08:16 APTT 30 SECONDS (21-34) 07/02/17 08:16 - Constitutional Appears: Well, Non-toxic, No Acute Distress - Head Exam Head Exam: ATRAUMATIC, NORMOCEPHALIC - Eye Exam Eye Exam: Normal appearance. absent: Conjunctival injection, Scleral icterus - ENT Exam ENT Exam: Mucous Membranes Moist, Normal Oropharynx - Respiratory Exam Respiratory Exam: NORMAL BREATHING PATTERN. absent: Accessory Muscle Use, Respiratory Distress - Cardiovascular Exam Cardiovascular Exam: RRR - Extremities Exam Additional comments: right AVF in snuff box with good palpable thrill, hand warm, good radial and ulnar pulse, no swelling. Full range of motion at the elbow - Neurological Exam Neurological Exam: Alert, Awake, Oriented x3 - Psychiatric Exam Psychiatric exam: Normal Affect, Normal Mood - Skin Skin Exam: Dry, Intact, Normal Color, Warm Assessment and Plan - Assessment and Plan (Free Text) Assessment: 61F POD#2 s/p avf creation in the right snuff box Plan: -AVF doing well, no concerns -Patient should follow up with Dr. Lai in his office in 1-2 weeks -No utilization of the AVF until cleared by Dr. Lai -right upper extremity limb alert -Leave dressing intact -Please notify surgical team of any new complaints or concerns -Thank you for this consult Discussed with Dr. Ming Live, PGY2
[2017-07-04 08:48] LABS: BASO # 0.1 K/uL (0.0-0.2); BASO % 0.9 % (0.0-2.0); EOS # 0.2 K/uL (0.0-0.7); EOS % 3.1 % (0.0-4.0); LYMPH # 0.8 K/uL (1.0-4.3); LYMPH % 12.5 % (20.0-40.0); MEAN CELL VOLUME 85.9 fL (81.0-99.0); MEAN CORPUSCULAR HEMOGLOBIN 29.4 pg (27.0-31.0); MEAN CORPUSCULAR HGB CONC 34.2 g/dL (33.0-37.0); MEAN PLATELET VOLUME 7.7 fL (7.2-11.7); MONO # 0.7 K/uL (0.0-0.8); MONO % 11.4 % (0.0-10.0); NEUT # 4.7 K/uL (1.8-7.0); NEUT % 72.1 % (50.0-75.0); RBC 3.07 Mil/uL (3.80-5.20); RED CELL DISTRIBUTION WIDTH 15.1 % (11.5-14.5); WHITE BLOOD COUNT 6.5 K/uL (4.8-10.8)
[2017-07-04 09:11] LABS: CALCIUM 8.4 mg/dl (8.6-10.4)
--- NOTE | 2017-07-04 09:52 | CP.PCM.PN ---
Subjective - Date & Time of Evaluation Date of Evaluation: 07/04/17 Time of Evaluation: 09:15 - Subjective Subjective: Patient was seen and examined by me She reported the pain has been less. She is walking slowly however she explains she needs assistance. She has been seen and evaluated by PT The patient had creation of wrist AVF POD 2. She denied fever, denied chills, denied palpitations. Today will add long acting oxycontin to help with pain control. Patient was depressed about her situation. She explains she is thinking about returning to her country because she has no family here who could help her. Objective - Vital Signs/Intake and Output Vital Signs (last 24 hours): Temp Pulse Resp BP Pulse Ox 98.0 F 68 20 144/72 95 07/04/17 09:02 07/04/17 09:02 07/04/17 09:02 07/04/17 09:02 07/04/17 09:02 - Medications Medications: Current Medications Acetaminophen (Tylenol 325mg Tab) 650 mg PO Q6 PRN PRN Reason: Pain, moderate (4-7) Last Admin: 07/03/17 06:47 Dose: 650 mg Aspirin (Aspirin Chewable) 81 mg PO DAILY [facility] Last Admin: 07/03/17 09:31 Dose: 81 mg Bisacodyl (Dulcolax) 5 mg PO DAILY PRN PRN Reason: Constipation Last Admin: 07/03/17 14:36 Dose: 5 mg Carvedilol (Coreg) 25 mg PO BID [facility] Last Admin: 07/03/17 22:29 Dose: 25 mg Clonidine HCl (Catapres) 0.1 mg PO BID [facility] Last Admin: 07/03/17 22:29 Dose: 0.1 mg Dextrose (Dextrose 50% Inj) 0 ml IV STAT PRN; Protocol PRN Reason: Hypoglycemia Protocol Dextrose (Glutose 15) 0 gm PO ONCE PRN; Protocol PRN Reason: Hypoglycemia Protocol Ergocalciferol (Drisdol 50,000 Intl Units Cap) 1 cap PO Q7D [facility] Last Admin: 06/28/17 16:17 Dose: 1 cap Famotidine (Pepcid) 20 mg PO DAILY [facility] Last Admin: 07/03/17 09:33 Dose: 20 mg Ferrous Gluconate (Fergon) 324 mg PO TID [facility] Last Admin: 07/03/17 18:40 Dose: 324 mg Furosemide (Lasix) 80 mg IVP BID [facility] Last Admin: 07/03/17 18:40 Dose: 80 mg Gabapentin (Neurontin) 100 mg PO DAILY [facility] Last Admin: 07/03/17 09:32 Dose: 100 mg Glucagon (Glucagen Diagnostic Kit) 0 mg IM STAT PRN; Protocol PRN Reason: Hypoglycemia Protocol Hydralazine HCl (Apresoline) 10 mg IVP Q6H PRN PRN Reason: SBP>160 Last Admin: 06/30/17 00:46 Dose: 10 mg Hydralazine HCl (Apresoline) 50 mg PO Q6 [facility] Last Admin: 07/04/17 06:30 Dose: 50 mg Ceftriaxone Sodium 1 gm/ (Sodium Chloride) 100 mls @ 100 mls/hr IVPB Q24H [facility] PRN Reason: Protocol Last Admin: 07/03/17 13:00 Dose: 100 mls/hr Insulin Human Isoph/Insulin Regular (Novolin 70/30 (70/30 Units/Ml) 10 Ml) 20 units SC Q12H [facility] Last Admin: 07/03/17 22:37 Dose: 20 units Insulin Human Regular (Novolin R) 0 unit SC ACHS [facility] PRN Reason: Protocol Last Admin: 07/03/17 22:38 Dose: Not Given Nifedipine (Procardia Xl) 30 mg PO DAILY [facility] Last Admin: 07/03/17 10:18 Dose: 30 mg Oxycodone/Acetaminophen (Percocet 5/325 Mg Tab) 1 tab PO Q4H PRN PRN Reason: pain Stop: 07/06/17 08:22 Last Admin: 07/04/17 07:31 Dose: 1 tab Sevelamer Carbonate (Renvela) 800 mg PO TIDCC [facility] Last Admin: 07/03/17 18:41 Dose: 800 mg Vitamin B Complex/Vit C/Folic Acid (Nephro-Matti) 1 tab PO 0800 [facility] Last Admin: 07/03/17 08:47 Dose: 1 tab - Labs Labs: 07/04/17 08:40 07/04/17 08:40 PT 11.0 SECONDS (9.7-12.2) 07/02/17 08:16 INR 1.0 07/02/17 08:16 APTT 30 SECONDS (21-34) 07/02/17 08:16 - Constitutional Appears: Non-toxic, No Acute Distress - Head Exam Head Exam: NORMAL INSPECTION, NORMOCEPHALIC - Eye Exam Eye Exam: EOMI, Normal appearance - ENT Exam ENT Exam: Mucous Membranes Moist - Respiratory Exam Respiratory Exam: Clear to Ausculation Bilateral, NORMAL BREATHING PATTERN - Cardiovascular Exam Cardiovascular Exam: REGULAR RHYTHM - GI/Abdominal Exam GI & Abdominal Exam: Soft, Normal Bowel Sounds - Extremities Exam Extremities Exam: Pedal Edema, Tenderness Additional comments: Minimal edema. Both feet with dressing. - Neurological Exam Neurological Exam: Alert, Awake, Oriented x3 Neuro motor strength exam: Left Upper Extremity: 5, Right Upper Extremity: 5, Left Lower Extremity: 5, Right Lower Extremity: 4 - Psychiatric Exam Psychiatric exam: Depressed, Flat Affect - Skin Skin Exam: Normal Color, Warm Assessment and Plan - Assessment and Plan (Free Text) Assessment: 1.) Pleural Effusions - Shortness of breath 07/04/2017: Doing well, not short of breath at rest or when walking. 07/03/2017: Most fluid samples from 06/30 the thoracenteis returned and appear transudative so far - likely related to the CHF and CKD. She had 300 cc removed. Since being here her breathing has signifigantly improved. D-dimer: 449 - VQ Scan: low probability for PE - Heparin drip discontinued BiPAP prn Lasix 80 mg IV BID Chest x-ray: pulmonary vascular congestion changes with bilateral lower lobe alveolar-type infiltrates atelectasis and bilateral effusions Chest CT w/o contrast shows moderate pleural effusion and no evidence of malignancy 2.) New onset CHF 07/04/2017: Today repeat CXRAY, her breathing has been better 07/03/2017: The patient remains on lasix IV BID at this time Her weight has been from 168 on admission to 152 lbs Also on BB, Statin, ASA. The BNP is high - will always be high due to renal function. 3.) Dorsal foot blisers and bilateral LE Swelling 07/04/2017: Painful still, will add on long acting oxycontin XR, also she will need to go with a walker or a cane 07/03/2017: Improving, still has minimal pitting edema however the swelling is no longer in the thighs. Lasix 80mg IV BID Venous dopplers negative for DVT 4.) History of HTN 07/03/2017: Higher today, just had surgery. If remains high despite pain medication then will need more BP medication. Hydralazine 10mg IV Q6 prn Hydrazaline 50mg po QID Coreg 25 mg PO BID Nifedipine XL 30 mg PO daily Per nephro, clonidine 0.1 mg PO BID 5.) History of DM Type II 07/14: 135, 102, continue regimen 07/13: Accuchecks have been ok 82, 98, 103, 214, 102 Hypoglycemia protocol Hemoglobin A1c 10.6 NPH/Regular 20 units SC Q12H 6.) History of Chronic Kidney Injury 07/03/2017: Status post creation of wrist area AVF. So far patient is hanging in there. She hasn't had K or Bicarb problems. Elevated BUN/Cr likely due to long-standing HTN and DM Appreciate nephrology seeing patient Renal ultrasound shows medical renal disease Immunology workup to ascertain for other etiologies of kidney disease has been negative thus far 7.) UTI 07/03/2017: Repeat the UA and UC + S Rocephin 1 gm IV daily started on 06/28/17 9.) Prophylaxis Heparin drip discontinued. Due to elevated PTT, will wait until tomorrow before starting Heparin SC Pepcid 20mg daily
[2017-07-04] MEDS: oxyCODONE 20 mg ER Tab (oxyCONTIN) PO SCH ×2 (10:15→21:42)
[2017-07-04] MEDS: Bisacodyl 5mg EC Tab PO PRN (10:24)
[2017-07-04] MEDS: Multivitamin Vitamin B Complex (Nephro-Vite) Tab PO SCH (10:24)
[2017-07-04] MEDS: (Novolin 70/30) NPH/Regular 70/30 Units/ml 10 ml vial SC SCH ×2 (10:24→21:42)
[2017-07-04] MEDS: NIFEdipine 30 mg ER Tab PO SCH (10:26)
--- NOTE | 2017-07-04 21:00 | CP.PCM.PN ---
Subjective - Date & Time of Evaluation Date of Evaluation: 07/04/17 Time of Evaluation: 20:57 - Subjective Subjective: Podiatry Consult Note- Dr. Keane 61F seen and evaluated at bedside for bilateral foot wounds. Patient resting comfortably, NAD. No acute events overnight. Endorses soreness to top of right foot, well-controlled. No complaints to left foot wounds. Denies N/V/F/D/C/SOB/ ROWE/dizziness. Objective - Vital Signs/Intake and Output Vital Signs (last 24 hours): Temp Pulse Resp BP Pulse Ox 98.0 F 68 20 128/70 95 07/04/17 09:02 07/04/17 09:02 07/04/17 09:02 07/04/17 17:24 07/04/17 09:02 - Medications Medications: Current Medications Acetaminophen (Tylenol 325mg Tab) 650 mg PO Q6 PRN PRN Reason: Pain, moderate (4-7) Last Admin: 07/03/17 06:47 Dose: 650 mg Aspirin (Aspirin Chewable) 81 mg PO DAILY [facility] Last Admin: 07/04/17 10:24 Dose: 81 mg Bisacodyl (Dulcolax) 5 mg PO DAILY PRN PRN Reason: Constipation Last Admin: 07/04/17 10:24 Dose: 5 mg Carvedilol (Coreg) 25 mg PO BID [facility] Last Admin: 07/04/17 10:26 Dose: 25 mg Clonidine HCl (Catapres) 0.1 mg PO BID [facility] Last Admin: 07/04/17 10:24 Dose: 0.1 mg Dextrose (Dextrose 50% Inj) 0 ml IV STAT PRN; Protocol PRN Reason: Hypoglycemia Protocol Dextrose (Glutose 15) 0 gm PO ONCE PRN; Protocol PRN Reason: Hypoglycemia Protocol Ergocalciferol (Drisdol 50,000 Intl Units Cap) 1 cap PO Q7D [facility] Last Admin: 06/28/17 16:17 Dose: 1 cap Famotidine (Pepcid) 20 mg PO DAILY [facility] Last Admin: 07/04/17 10:24 Dose: 20 mg Ferrous Gluconate (Fergon) 324 mg PO TID [facility] Last Admin: 07/04/17 17:37 Dose: 324 mg Furosemide (Lasix) 80 mg IVP BID [facility] Last Admin: 07/04/17 17:24 Dose: 80 mg Gabapentin (Neurontin) 100 mg PO DAILY [facility] Last Admin: 07/04/17 10:24 Dose: 100 mg Glucagon (Glucagen Diagnostic Kit) 0 mg IM STAT PRN; Protocol PRN Reason: Hypoglycemia Protocol Hydralazine HCl (Apresoline) 10 mg IVP Q6H PRN PRN Reason: SBP>160 Last Admin: 06/30/17 00:46 Dose: 10 mg Hydralazine HCl (Apresoline) 50 mg PO Q6 [facility] Last Admin: 07/04/17 17:23 Dose: 50 mg Ceftriaxone Sodium 1 gm/ (Sodium Chloride) 100 mls @ 100 mls/hr IVPB Q24H [facility] PRN Reason: Protocol Last Admin: 07/04/17 13:00 Dose: 100 mls/hr Insulin Human Isoph/Insulin Regular (Novolin 70/30 (70/30 Units/Ml) 10 Ml) 20 units SC Q12H [facility] Last Admin: 07/04/17 10:24 Dose: 20 units Insulin Human Regular (Novolin R) 0 unit SC ACHS [facility] PRN Reason: Protocol Last Admin: 07/04/17 17:35 Dose: 1 unit Nifedipine (Procardia Xl) 30 mg PO DAILY [facility] Last Admin: 07/04/17 10:26 Dose: 30 mg Oxycodone HCl (Oxycontin Extended Release Tab) 20 mg PO Q12 [facility] Last Admin: 07/04/17 10:15 Dose: 20 mg Oxycodone/Acetaminophen (Percocet 5/325 Mg Tab) 1 tab PO Q4H PRN PRN Reason: pain Stop: 07/06/17 08:22 Last Admin: 07/04/17 13:29 Dose: 1 tab Sevelamer Carbonate (Renvela) 800 mg PO TIDCC [facility] Last Admin: 07/04/17 17:25 Dose: 800 mg Vitamin B Complex/Vit C/Folic Acid (Nephro-Matti) 1 tab PO 0800 [facility] Last Admin: 07/04/17 10:24 Dose: 1 tab - Labs Labs: 07/04/17 08:40 07/04/17 08:40 PT 11.0 SECONDS (9.7-12.2) 07/02/17 08:16 INR 1.0 07/02/17 08:16 APTT 30 SECONDS (21-34) 07/02/17 08:16 - Constitutional Appears: Well, Non-toxic, No Acute Distress - Extremities Exam Additional comments: B/L lower ext exam: Dressings clean/dry/intact with no strikethrough noted. VASC- pedal pulses are palpable bl, skin temp wnl bl, cap refill < 3 sec to all digits, edema has resolved NEURO- gross and protective pedal sensation intact DERM- 4.0 x5.0 superficial ulcer noted to dorsum of right foot (lanced bullous lesion) with no drainage noted, scattered superficial ulcerations noted to dorsum of left foot with no drainage and no signs infection MSK-slight tenderness to palpation of wound to right foot, no pain on palpation left foot wounds, MMT is 5/5 all directions - Neurological Exam Neurological Exam: Alert, Awake, Oriented x3 - Psychiatric Exam Psychiatric exam: Normal Affect, Normal Mood Assessment and Plan - Assessment and Plan (Free Text) Assessment: 61 yo diabetic female with ulcerations of b/l feet 2/2 acute CHF exacerbation/ lower extremity edema Plan: Patient seen and evaluated Discussed with attending, Dr. Keane Afebrile, WBC WNL 6.5 Continue local wound care - b/l foot xeroform, DSD Wounds appear stable at this time Podiatry will continue to follow
--- NOTE | 2017-07-05 01:45 | CP.PCM.PN ---
Subjective - Date & Time of Evaluation Date of Evaluation: 07/04/17 Time of Evaluation: 13:00 - Subjective Subjective: Nephrology Consultation: no events overnight Assessment: stable Nephrotic syndrome with fluid overload Acute Kidney Injury (N17.9) versus likely progressive underlying CKD Diabetic chronic Kidney Disease (E11.22) Hypertensive Chronic Kidney Disease (I12.9) with HTN urgency ? Chronic Kidney Disease (N18.5) Stage 5 with 5 gm proteinuria (R80.9) likely due to DM Anemia (D64.9), Hyperphosphatemia (E83.39), Secondary Hyperparathyroidism (E21.1 ), HTN (I12.9) non compliance to meds and follow up Plan No acute need for renal replacement therapy at this time but will need in near future. d/w pt and she is agreeable. Hypertension control with meds as ordered. Patient not on ACEI/ARB due to advanced renal insuff. Monitor Input/Output continue diuresis anemia: iron stores low however was beign treated for UTI, once abx complete can initiate iron infusion Physical Examination: General Appearance: Comfortable, in no acute respiratory distress, co-operative . facial muscle wasting + Vitals reviewed and noted as below Head; Atraumatic, normocephalic ENT: no ulcers no thrush. Tongue is midline. Oropharynx: no rash or ulcers. EYES: Pupils are equal, round and reactive to light accommodation. Eye muscles and extraocular movement intact. Sclera is anicteric. Neck; supple no lymphadenopathy, no thyromegaly or bruit Lungs: Normal respiratory rate/effort. Breath sounds bilateral equal and occasional basal crackles Heart: Normal rate. s1s2 normal. No rub or gallop. Extremities: 2+ edema. No varicose veins Neurological: Patient is alert, awake and oriented to person, place and time. No focal deficit. Strength bilateral appropriate and equal Skin: Warm and dry. Normal turgor. No rash. Palpitation: Normal elasticity for age Abdomen: Abdomen is soft. Bowel sounds +. There is no abdominal tenderness, no guarding/rigidity no organomegaly Psych: lack insight and has normal affect/mood MSK: no joint tenderness or swelling. Objective - Vital Signs/Intake and Output Vital Signs (last 24 hours): Temp Pulse Resp BP Pulse Ox 98.2 F 67 20 145/69 96 07/04/17 23:50 07/04/17 23:50 07/04/17 23:50 07/04/17 23:50 07/04/17 23:50 - Medications Medications: Current Medications Acetaminophen (Tylenol 325mg Tab) 650 mg PO Q6 PRN PRN Reason: Pain, moderate (4-7) Last Admin: 07/03/17 06:47 Dose: 650 mg Aspirin (Aspirin Chewable) 81 mg PO DAILY [facility] Last Admin: 07/04/17 10:24 Dose: 81 mg Bisacodyl (Dulcolax) 5 mg PO DAILY PRN PRN Reason: Constipation Last Admin: 07/04/17 10:24 Dose: 5 mg Carvedilol (Coreg) 25 mg PO BID [facility] Last Admin: 07/04/17 21:32 Dose: 25 mg Clonidine HCl (Catapres) 0.1 mg PO BID [facility] Last Admin: 07/04/17 21:32 Dose: 0.1 mg Dextrose (Dextrose 50% Inj) 0 ml IV STAT PRN; Protocol PRN Reason: Hypoglycemia Protocol Dextrose (Glutose 15) 0 gm PO ONCE PRN; Protocol PRN Reason: Hypoglycemia Protocol Ergocalciferol (Drisdol 50,000 Intl Units Cap) 1 cap PO Q7D [facility] Last Admin: 06/28/17 16:17 Dose: 1 cap Famotidine (Pepcid) 20 mg PO DAILY [facility] Last Admin: 07/04/17 10:24 Dose: 20 mg Ferrous Gluconate (Fergon) 324 mg PO TID [facility] Last Admin: 07/04/17 17:37 Dose: 324 mg Furosemide (Lasix) 80 mg IVP BID [facility] Last Admin: 07/04/17 17:24 Dose: 80 mg Gabapentin (Neurontin) 100 mg PO DAILY [facility] Last Admin: 07/04/17 10:24 Dose: 100 mg Glucagon (Glucagen Diagnostic Kit) 0 mg IM STAT PRN; Protocol PRN Reason: Hypoglycemia Protocol Hydralazine HCl (Apresoline) 10 mg IVP Q6H PRN PRN Reason: SBP>160 Last Admin: 06/30/17 00:46 Dose: 10 mg Hydralazine HCl (Apresoline) 50 mg PO Q6 [facility] Last Admin: 07/05/17 00:15 Dose: 50 mg Ceftriaxone Sodium 1 gm/ (Sodium Chloride) 100 mls @ 100 mls/hr IVPB Q24H [facility] PRN Reason: Protocol Last Admin: 07/04/17 13:00 Dose: 100 mls/hr Insulin Human Isoph/Insulin Regular (Novolin 70/30 (70/30 Units/Ml) 10 Ml) 20 units SC Q12H [facility] Last Admin: 07/04/17 21:42 Dose: 20 units Insulin Human Regular (Novolin R) 0 unit SC ACHS [facility] PRN Reason: Protocol Last Admin: 07/04/17 22:00 Dose: Not Given Nifedipine (Procardia Xl) 30 mg PO DAILY [facility] Last Admin: 07/04/17 10:26 Dose: 30 mg Oxycodone HCl (Oxycontin Extended Release Tab) 20 mg PO Q12 [facility] Last Admin: 07/04/17 21:42 Dose: 20 mg Oxycodone/Acetaminophen (Percocet 5/325 Mg Tab) 1 tab PO Q4H PRN PRN Reason: pain Stop: 07/06/17 08:22 Last Admin: 07/04/17 13:29 Dose: 1 tab Sevelamer Carbonate (Renvela) 800 mg PO TIDCC [facility] Last Admin: 07/04/17 17:25 Dose: 800 mg Vitamin B Complex/Vit C/Folic Acid (Nephro-Matti) 1 tab PO 0800 [facility] Last Admin: 07/04/17 10:24 Dose: 1 tab - Labs Labs: 07/04/17 08:40 07/04/17 08:40 PT 11.0 SECONDS (9.7-12.2) 07/02/17 08:16 INR 1.0 07/02/17 08:16 APTT 30 SECONDS (21-34) 07/02/17 08:16
[2017-07-05 05:55] VITALS: O2SAT 95
[2017-07-05] MEDS: (Novolin R) Insulin Human Regular 100 units/ml vial SC SCH ×2 (07:31→11:50)
[2017-07-05 07:35] LABS: HEMOGLOBIN 8.7 g/dL (11.0-16.0); MEAN CORPUSCULAR HEMOGLOBIN 29.5 pg (27.0-31.0)
[2017-07-05] MEDS: Multivitamin Vitamin B Complex (Nephro-Vite) Tab PO SCH (07:38)
[2017-07-05 07:41] LABS: BASO # 0.1 K/uL (0.0-0.2); BASO % 1.1 % (0.0-2.0); EOS # 0.2 K/uL (0.0-0.7); EOS % 4.2 % (0.0-4.0); LYMPH # 1.1 K/uL (1.0-4.3); LYMPH % 17.7 % (20.0-40.0); MEAN CELL VOLUME 86.2 fL (81.0-99.0); MEAN CORPUSCULAR HGB CONC 34.2 g/dL (33.0-37.0); MONO # 0.8 K/uL (0.0-0.8); NEUT # 3.8 K/uL (1.8-7.0); RBC 2.95 Mil/uL (3.80-5.20); RED CELL DISTRIBUTION WIDTH 14.2 % (11.5-14.5)
[2017-07-05 07:58] LABS: ALB/GLOB RATIO 0.9 (1.0-2.1); ALBUMIN 2.8 g/dL (3.5-5.0); CALCIUM 8.4 mg/dl (8.6-10.4)
[2017-07-05 08:10] VITALS: TEMP 98.3
[2017-07-05] MEDS: Bisacodyl 5mg EC Tab PO PRN (09:21)
[2017-07-05] MEDS: (Novolin 70/30) NPH/Regular 70/30 Units/ml 10 ml vial SC SCH (09:22)
[2017-07-05] MEDS: oxyCODONE 20 mg ER Tab (oxyCONTIN) PO SCH (09:22)
[2017-07-05] MEDS: NIFEdipine 30 mg ER Tab PO SCH (09:24)
[2017-07-05 11:27] VITALS: BP 166/72; PULSE 62
--- NOTE | 2017-07-05 15:10 | CP.PCM.PN ---
Subjective - Date & Time of Evaluation Date of Evaluation: 07/05/17 Time of Evaluation: 15:08 - Subjective Subjective: Nephrology Consultation: Assessment: stable Nephrotic syndrome with fluid overload Acute Kidney Injury (N17.9) versus likely progressive underlying CKD Diabetic chronic Kidney Disease (E11.22) Hypertensive Chronic Kidney Disease (I12.9) with HTN urgency ? Chronic Kidney Disease (N18.5) Stage 5 with 5 gm proteinuria (R80.9) likely due to DM Anemia (D64.9), Hyperphosphatemia (E83.39), Secondary Hyperparathyroidism (E21.1 ), HTN (I12.9) non compliance to meds and follow up Plan No acute need for renal replacement therapy at this time but will need in near future. d/w pt and she is agreeable. Vascular surgery consult for AV access appreciate. she has AVF now Hypertension control with meds as ordered. Patient not on ACEI/ARB due to advanced renal insuff. Monitor Input/Output, daily weights and renal function with basic metabolic panel diuresis with po lasix 80 mg bid add iron supplements, MVI and weekly Vitamin D compliance to meds and follow up reinforced once stable, consider age appropriate malignancy screening Dose meds/antibiotics for reduced GFR. Avoid fleets enema/magnesium based laxatives. Avoid nephrotoxins/NSAIDs/ iodinated contrast (unless needed emergently) Glycemic control Further work up/management as per primary team pt advised to f/up with me in office within 1 week. reinforced need for medication compliance and close follow up. Pt was again educated that she is anticipated to need dialysis initiation in near future. Thanks for allowing me to participate in care of your patient. Will follow patient with you. Please call if any Qs. d/w team. Dr Roque Ruth Office: [phone] Chief Complaint; leg swelling and SOB HPI: Pt is a 61 F with hx of diabetes Mellitus (>20 years), hypertension (>20 years), kidney disease for few years, not taking meds for last 3 years and no followups presented with complaints of SOB and worsening legs swelling for last 1 week Denies OTC/herbal meds or NSAIDs No recent iodinated contrast exposure. No obvious episodes of low BP. she feels that had lost weight, don't know how much pt says she was told in [place] few years ago that kidney was damaged due to DM /HTN ROS: Cardiovascular: No chest pain. Pulmonary: improved shortness of breath Gastrointestinal: denies abdominal pain No nausea. No vomiting. Genitourinary: No pain while urinating. Denies blood in urine. All other negative Physical Examination: General Appearance: Comfortable, in no acute respiratory distress, co-operative . facial muscle wasting + Vitals reviewed and noted as below Head; Atraumatic, normocephalic ENT: no ulcers no thrush. Tongue is midline. Oropharynx: no rash or ulcers. EYES: Pupils are equal, round and reactive to light accommodation. Eye muscles and extraocular movement intact. Sclera is anicteric. Neck; supple no lymphadenopathy, no thyromegaly or bruit Lungs: Normal respiratory rate/effort. Breath sounds bilateral equal and clear Heart: Normal rate. s1s2 normal. No rub or gallop. Extremities: trace-1+ edema. No varicose veins Neurological: Patient is alert, awake and oriented to person, place and time. No focal deficit. Strength bilateral appropriate and equal Skin: Warm and dry. Normal turgor. No rash. Palpitation: Normal elasticity for age Abdomen: Abdomen is soft. Bowel sounds +. There is no abdominal tenderness, no guarding/rigidity no organomegaly Psych: lack insight and has normal affect/mood MSK: no joint tenderness or swelling. Digits and nails normal, no deformity : kidney or bladder not palpable Labs/imaging reviewed. Past medical history, past surgical history, family history, social history, allergy reviewed and noted as below Family hx: no hx of CKD. Rest non-contributory Objective - Vital Signs/Intake and Output Vital Signs (last 24 hours): Temp Pulse Resp BP Pulse Ox 98.3 F 62 20 166/72 H 95 07/05/17 08:09 07/05/17 11:26 07/05/17 08:09 07/05/17 11:26 07/05/17 08:09 - Labs Labs: 07/05/17 07:26 07/05/17 07:26 PT 11.0 SECONDS (9.7-12.2) 07/02/17 08:16 INR 1.0 07/02/17 08:16 APTT 30 SECONDS (21-34) 07/02/17 08:16
--- NOTE | 2017-07-05 16:58 | CP.PCM.DIS ---
<Anneliese Bernstein - Last Filed: 07/05/17 17:03> Provider - Provider Date of Admission: 06/27/17 18:06 Attending physician: Giacomo Hameed DO Consults: Dr. Ming Mcdowell/Dr. Flory Keane Time Spent in preparation of Discharge (in minutes): 35 Diagnosis - Discharge Diagnosis (1) Chronic congestive heart failure Status: Acute (2) Diabetes Status: Acute (3) UTI (urinary tract infection) Status: Acute (4) Uncontrolled hypertension Status: Acute Hospital Course - Lab Results Lab Results: Micro Results 06/30/17 12:25 Body Fluid - Pleural Fluid Gram Stain - Final 06/30/17 12:25 Body Fluid - Pleural Fluid Body Fluid Culture - Final No growth. 06/30/17 11:00 Other: Please Indicate Mycobacterial Culture - Preliminary 06/30/17 12:23 Pleural Fluid Anaerobic Culture - Final NO ANAEROBES ISOLATED. 06/30/17 12:23 Pleural Fluid Fungal Culture - Preliminary 06/27/17 18:08 Urine Urine Culture - Final Escherichia Coli Most Recent Lab Values WBC 6.0 K/uL (4.8-10.8) 07/05/17 07:26 RBC 2.95 Mil/uL (3.80-5.20) L 07/05/17 07:26 Hgb 8.7 g/dL (11.0-16.0) L 07/05/17 07:26 Hct 25.4 % (34.0-47.0) L 07/05/17 07:26 MCV 86.2 fL (81.0-99.0) 07/05/17 07:26 MCH 29.5 pg (27.0-31.0) 07/05/17 07:26 MCHC 34.2 g/dL (33.0-37.0) 07/05/17 07:26 RDW 14.2 % (11.5-14.5) 07/05/17 07:26 Plt Count 305 K/uL (130-400) 07/05/17 07:26 MPV 8.0 fL (7.2-11.7) 07/05/17 07:26 Neut % (Auto) 63.0 % (50.0-75.0) 07/05/17 07:26 Lymph % (Auto) 17.7 % (20.0-40.0) L 07/05/17 07:26 [place] % (Auto) 14.0 % (0.0-10.0) H 07/05/17 07:26 Eos % (Auto) 4.2 % (0.0-4.0) H 07/05/17 07:26 Baso % (Auto) 1.1 % (0.0-2.0) 07/05/17 07:26 Neut # (Auto) 3.8 K/uL (1.8-7.0) 07/05/17 07: Lymph # (Auto) 1.1 K/uL (1.0-4.3) 07/05/17 07:26 [place] # (Auto) 0.8 K/uL (0.0-0.8) 07/05/17 07: Eos # (Auto) 0.2 K/uL (0.0-0.7) 07/05/17 07:26 Baso # (Auto) 0.1 K/uL (0.0-0.2) 07/05/17 07:26 PT 11.0 SECONDS (9.7-12.2) 07/02/17 08:16 INR 1.0 07/02/17 08:16 APTT 30 SECONDS (21-34) 07/02/17 08:16 D-Dimer, Quantitative 449 ng/mlDDU (0-243) H 06/27/17 16:58 Sodium 131 mmol/L (132-148) L 07/05/17 07:26 Potassium 5.1 mmol/L (3.6-5.2) 07/05/17 07:26 Chloride 95 mmol/L (98-107) L 07/05/17 07:26 Carbon Dioxide 27 mmol/L (22-30) 07/05/17 07:26 Anion Gap 14 (10-20) 07/05/17 07:26 BUN 81 mg/dL (7-17) H 07/05/17 07:26 Creatinine 5.4 mg/dL (0.7-1.2) H 07/05/17 07:26 Est GFR ( Amer) 10 07/05/17 07:26 Est GFR (Non-Af Amer) 8 07/05/17 07:26 POC Glucose (mg/dL) 145 mg/dL (65-110) H 07/05/17 10:17 Random Glucose 108 mg/dL (65-105) H 07/05/17 07:26 Hemoglobin A1c 10.6 % (4.2-6.5) H 06/28/17 07:08 Calcium 8.4 mg/dl (8.6-10.4) L 07/05/17 07:26 Phosphorus 6.4 mg/dL (2.5-4.5) H 07/04/17 08:40 Magnesium 2.3 mg/dL (1.6-2.3) 07/04/17 08:40 Iron 29 ug/dL (37-170) L 06/28/17 14:00 TIBC 231 ug/dL (250-450) L 06/28/17 14:00 % Saturation 13 (20-55) L 06/28/17 14:00 Ferritin 37.6 ng/mL 06/28/17 07:08 Total Bilirubin 0.2 mg/dL (0.2-1.3) 07/05/17 07:26 AST 21 U/L (14-36) 07/05/17 07:26 ALT 23 U/L (9-52) 07/05/17 07:26 Alkaline Phosphatase 58 U/L (38-126) 07/05/17 07:26 Lactate Dehydrogenase 619 U/L (313-618) H 06/30/17 07:05 Troponin I 0.0460 ng/mL (0.00-0.120) 06/28/17 16:38 NT-Pro-B Natriuret Pep 21429 pg/mL (0-900) H 06/27/17 16:58 Total Protein 6.1 g/dL (6.3-8.3) L 07/05/17 07:26 Total Protein (PEP) 6.6 g/dL (6.1-8.1) 06/28/17 14:00 Albumin 2.8 g/dL (3.5-5.0) L 07/05/17 07:26 Albumin (PEP) 3.1 g/dL (3.8-4.8) L 06/28/17 14:00 Globulin 3.3 gm/dL (2.2-3.9) 07/05/17 07:26 Albumin/Globulin Ratio 0.9 (1.0-2.1) L 07/05/17 07:26 Dsuio-5-Zxocpdwna 0.4 g/dL (0.2-0.3) H 06/28/17 14:00 Mzuvb-2-Cbcmrxmcw 0.9 g/dL (0.5-0.9) 06/28/17 14:00 Oguf-4-Ucouogly 0.4 g/dL (0.4-0.6) 06/28/17 14:00 Ybqc-8-Faosbbgx 0.7 g/dL (0.2-0.5) H 06/28/17 14:00 Gamma Globulins 1.0 g/dL (0.8-1.7) 06/28/17 14:00 Abnorm Protein Band 1 TEST NOT PERFORMED 06/28/17 14:00 Abnorm Protein Band 2 TEST NOT PERFORMED 06/28/17 14:00 Abnorm Protein Band 3 TEST NOT PERFORMED 06/28/17 14:00 Triglycerides 60 mg/dL (0-149) 06/28/17 07:08 Cholesterol 220 mg/dL (0-199) H 06/28/17 07:08 LDL Cholesterol Direct 128 mg/dL (0-129) 06/28/17 07:08 HDL Cholesterol 79 mg/dL (30-70) H 06/28/17 07:08 Carcinoembryonic Ag 3.2 ng/mL (0-3.0) H 06/30/17 07:05 CA 19-9 Antigen < 1.4 U/mL (0-37) 06/30/17 07:05 Vitamin B12 890 pg/mL (239-931) 06/28/17 07:08 25-OH Vitamin D Total 20.3 NG/ML (30.0-100.0) L 06/28/17 14:00 Folate 12.8 ng/mL 06/28/17 07:08 Thyroxine (T4) 9.47 ug/dL (5.5-11.0) 06/28/17 07:08 TSH 3rd Generation 1.02 mIU/L (0.46-4.68) 06/28/17 07:08 PTH Intact Whole Molec 99 pg/mL (14-64) H 06/28/17 14:00 Urine Color Yellow (YELLOW) 06/28/17 12:02 Urine Clarity Hazy (Clear) 06/28/17 12:02 Urine pH 5.0 (5.0-8.0) 06/28/17 12:02 Ur Specific Max 1.009 (1.003-1.030) 06/28/17 12:02 Urine Protein 3+ mg/dL (NEGATIVE) H 06/28/17 12:02 Urine Glucose (UA) 3+ mg/dL (Normal) H 06/28/17 12:02 Urine Ketones Negative mg/dL (NEGATIVE) 06/28/17 12:02 Urine Blood 1+ (NEGATIVE) H 06/28/17 12:02 Urine Nitrate Negative (NEGATIVE) 06/28/17 12: Urine Bilirubin Negative (NEGATIVE) 06/28/17 12:02 Urine Urobilinogen Normal mg/dL (0.2-1.0) 06/28/17 12:02 Ur Leukocyte Esterase Neg Rosalino/uL (Negative) 06/28/17 12:02 Urine WBC (Auto) 6 /hpf (0-5) H 06/28/17 12:02 Urine RBC (Auto) 1 /hpf (0-3) 06/28/17 12:02 Ur Squamous Epith Cells 2 /hpf (0-5) 06/28/17 12:02 Urine Bacteria Few (<OCC) H 06/28/17 12:02 Ur Random Creatinine 59.8 mg/dL 06/28/17 12:03 U Random Total Protein 322.0 mg/dL (0.0-12.0) H 06/28/17 12:03 Urine Microalbumin > 950.0 mg/L (0.0-16.6) H 06/28/17 12:07 Fluid Source Pleural/thoracentesi 06/30/17 13:05 Fluid Appearance Sl cloudy (CLEAR) 06/30/17 13:05 Fluid WBC 313.0 /mm3 (0.0-300.0) H 06/30/17 13:05 Fluid RBC 431.0 /mm3 (0.0-0.0) H 06/30/17 13:05 Fluid Tot Cell Count TEST NOT PERFORMED 06/30/17 13:05 Fluid Neutrophils 9.0 % (0-0) H 06/30/17 13:05 Fluid Lymphocytes 88.0 % (0-0) H 06/30/17 13:05 Fld Monocyte/Macrophag 3 % (0-0) H 06/30/17 13:05 Fluid Comment 06/30/17 13:05 Pleural Total Protein <3.0 g/dL 06/30/17 13:05 Pleural LDH 99 U/L 06/30/17 13:05 Pleural Fluid CEA <0.5 ng/mL (<10.0) 06/30/17 13:05 MORENA & SPEP Interp See note 06/28/17 14:00 Serum Immunofixation Not detected (Not Detected) 06/28/17 14:00 CANDY Nuclear Membr Pat Negative (Negative) 06/28/17 14:00 Double Strand DNA Ab 1 IU/mL 06/28/17 14:00 Complement C3 134.0 mg/dL (88.0-165.0) 06/28/17 09:00 Complement C4 37.5 mg/dL (14.0-44.0) 06/28/17 09:00 Tot Leith/Lambda Ratio 1.88 (1.29-2.55) 06/28/17 14:00 Leith Light Chain Anal 256 mg/dL (176-443) 06/28/17 14:00 Lambda Light Chain Anal 136 mg/dL (91-240) 06/28/17 14:00 Hep Bs Antigen Negative (NEGATIVE) 06/29/17 06:58 Hep Bs Antibody Negative (NEGATIVE) 06/29/17 06:58 Hep B Core IgM Ab Negative (NEGATIVE) 06/29/17 06:58 Hepatitis C Antibody Negative (NEGATIVE) 06/29/17 06:58 HIV 1&2 Antibody Screen Negative (NEGATIVE) 06/29/17 06:58 - Hospital Course Hospital Course: Upon admission 61 year old female with past medical history of DM, HTN and renal injury presents to the ER for bilateral lower extremity swelling. Patient states she was brought to the ER by her friend Di. Patient states she she has noticed the swelling for over a week. She states she doesn't know why she didn't go to the ER earlier. She states her legs have also been burning about 5/10 pain constant. She has been rubbing Asim's on them with minimal relief. She states she has also been feeling short of breath for the past week when the swelling started. She states she can only walk about 5 minutes and then she has to stop. She has been sleeping with 2 pillows for many years and yesterday she had to add 2 more pillows while she was sleep due to her shortness of breath. She also states she has noticed a decrease in her weight for the past 6 months. She states she cannot quantify her decrease in weight. She states there has not been a change in her appetite. However she has been depressed because her brother of lung cancer last year. She denies thoughts of hurting herself or others. She states she has not seen a doctor in 3 years and therefore stopped taking all of her medications for the past 3 years. She denies chest pain, nausea, vomiting, diarrhea, constipation, dysuria, or hematuria. Hospital Course Patient was admitted with new onset shortness of breath to rule out PE vs CHF. D -dimer was elevated at 449. VQ scan was low probability for PE. Venous dopplers negative for DVT. Patient was placed on BiPAP as needed. PrBnP: [id number]. Dr. Granda was consulted. chest x-ray: pulmonary vascular congestion changes with bilateral lower lobe alveolar-type infiltrates atelectasis and bilateral effusions. Chest CT w/o contrast shows moderate pleural effusion and no evidence of malignancy. Patient was started on lasix. On 06/30/17, patient had 300 cc of pleural fluid drained via thoracentesis. Echo: EF <40%. Patient was started on Coreg 25 mg PO BID. HTN was treated with Hydralazine, nifedipine, and clonidine (per nephro recs). DM was treated with ISS. Hemoglobin A1c was 10.6. Patient had elevated BUN/Cr likely due to long-standing HTN and DM. Nephro was consulted (Dr. Mcdowell). Renal ultrasound shows medical renal disease. Immunology workup to ascertain for other etiologies of kidney disease was negative. AVF was placed in case of need for dialysis. Patient had E. Coli UTI, treated with course of rocephin 1g daily. Upon discharge Patient stable for discharge per Dr. Ruth and Dr. Hutchins. Patient was discharged with the following instructions: Please follow up with the [facility] at [facility] on the day your appointment was made (tomorrow, July 06), as written on the appointment card provided to you. Please follow up with Dr. Ruth (sustainability analyst) next week per his request. Appointments can be made by calling his office at . Please fill and take the prescriptions provided. Please note that this is a summary of events. For more details, please see complete medical record. Discharge Exam - Head Exam Head Exam: NORMAL INSPECTION, NORMOCEPHALIC - Eye Exam Eye Exam: EOMI, Normal appearance, PERRL - ENT Exam ENT Exam: Mucous Membranes Moist - Respiratory Exam Respiratory Exam: Clear to PA & Lateral, UNREMARKABLE - Cardiovascular Exam Cardiovascular Exam: REGULAR RHYTHM, +S1, +S2 - GI/Abdominal Exam GI & Abdominal Exam: Normal Bowel Sounds, Unremarkable - Extremities Exam Extremities exam: normal inspection - Neurological Exam Neurological exam: Alert, Oriented x3 - Psychiatric Exam Psychiatric exam: Normal Affect, Normal Mood - Skin Skin Exam: Dry, Intact, Normal Color, Warm Discharge Plan - Discharge Medications Prescriptions: Aspirin [Aspirin Chewable] 81 mg PO DAILY #30 chew Carvedilol [Coreg] 25 mg PO BID #60 tab cloNIDine [Catapres] 0.1 mg PO BID #60 tab Ergocalciferol [Drisdol 50,000 Intl Units Cap] 1 cap PO Q7D #7 cap Ferrous Gluconate [Fergon] 324 mg PO TID #90 tab Furosemide [Lasix] 80 mg PO BID #120 tab Gabapentin [Neurontin] 100 mg PO DAILY #30 cap hydrALAZINE [Apresoline] 50 mg PO Q6 #120 tab NIFEdipine ER [Procardia XL] 30 mg PO DAILY #30 ter Sevelamer Carbonate [Renvela] 800 mg PO TIDCC #90 tab Vitamin B Complex/Vit C/Folic [Nephro-Matti] 1 tab PO 0800 #30 tab - Follow Up Plan Condition: GOOD Disposition: HOME/ ROUTINE Instructions: Heart Failure, Adult (DC), High Blood Pressure (DC), Diabetes Diet , Arteriovenous Fistula for Dialysis (DC), Heart Disease in Diabetics (DC) , Pleural Effusion (DC), Thoracentesis (DC), Diabetes and Diet, Acute Kidney Injury (DC), Urinary Tract Infection in Women (DC), Hypertension (DC) Additional Instructions: Please follow up with the [facility] at [facility] on the day your appointment was made (tomorrow, July 06), as written on the appointment card provided to you. Please follow up with Dr. Ruth (sustainability analyst) next week per his request. Appointments can be made by calling his office at . Please fill and take the prescriptions provided. Referrals: [facility] [Outside] Roque Ruth MD [Staff Provider] - <Jignesh Hutchins - Last Filed: 07/05/17 18:06> Provider - Provider Date of Admission: 06/27/17 18:06 Attending physician: Giacomo Hameed DO Hospital Course - Lab Results Lab Results: Micro Results 06/30/17 12:25 Body Fluid - Pleural Fluid Gram Stain - Final 06/30/17 12:25 Body Fluid - Pleural Fluid Body Fluid Culture - Final No growth. 06/30/17 11:00 Other: Please Indicate Mycobacterial Culture - Preliminary 06/30/17 12:23 Pleural Fluid Anaerobic Culture - Final NO ANAEROBES ISOLATED. 06/30/17 12:23 Pleural Fluid Fungal Culture - Preliminary 06/27/17 18:08 Urine Urine Culture - Final Escherichia Coli Most Recent Lab Values WBC 6.0 K/uL (4.8-10.8) 07/05/17 07:26 RBC 2.95 Mil/uL (3.80-5.20) L 07/05/17 07:26 Hgb 8.7 g/dL (11.0-16.0) L 07/05/17 07:26 Hct 25.4 % (34.0-47.0) L 07/05/17 07:26 MCV 86.2 fL (81.0-99.0) 07/05/17 07:26 MCH 29.5 pg (27.0-31.0) 07/05/17 07:26 MCHC 34.2 g/dL (33.0-37.0) 07/05/17 07:26 RDW 14.2 % (11.5-14.5) 07/05/17 07:26 Plt Count 305 K/uL (130-400) 07/05/17 07:26 MPV 8.0 fL (7.2-11.7) 07/05/17 07:26 Neut % (Auto) 63.0 % (50.0-75.0) 07/05/17 07:26 Lymph % (Auto) 17.7 % (20.0-40.0) L 07/05/17 07:26 [place] % (Auto) 14.0 % (0.0-10.0) H 07/05/17 07:26 Eos % (Auto) 4.2 % (0.0-4.0) H 07/05/17 07:26 Baso % (Auto) 1.1 % (0.0-2.0) 07/05/17 07:26 Neut # (Auto) 3.8 K/uL (1.8-7.0) 07/05/17 07:26 Lymph # (Auto) 1.1 K/uL (1.0-4.3) 07/05/17 07:26 [place] # (Auto) 0.8 K/uL (0.0-0.8) 07/05/17 07:26 Eos # (Auto) 0.2 K/uL (0.0-0.7) 07/05/17 07:26 Baso # (Auto) 0.1 K/uL (0.0-0.2) 07/05/17 07:26 PT 11.0 SECONDS (9.7-12.2) 07/02/17 08:16 INR 1.0 07/02/17 08:16 APTT 30 SECONDS (21-34) 07/02/17 08:16 D-Dimer, Quantitative 449 ng/mlDDU (0-243) H 06/27/17 16:58 Sodium 131 mmol/L (132-148) L 07/05/17 07:26 Potassium 5.1 mmol/L (3.6-5.2) 07/05/17 07:26 Chloride 95 mmol/L (98-107) L 07/05/17 07:26 Carbon Dioxide 27 mmol/L (22-30) 07/05/17 07:26 Anion Gap 14 (10-20) 07/05/17 07:26 BUN 81 mg/dL (7-17) H 07/05/17 07:26 Creatinine 5.4 mg/dL (0.7-1.2) H 07/05/17 07:26 Est GFR ( Amer) 10 07/05/17 07:26 Est GFR (Non-Af Amer) 8 07/05/17 07:26 POC Glucose (mg/dL) 145 mg/dL (65-110) H 07/05/17 10:17 Random Glucose 108 mg/dL (65-105) H 07/05/17 07:26 Hemoglobin A1c 10.6 % (4.2-6.5) H 06/28/17 07:08 Calcium 8.4 mg/dl (8.6-10.4) L 07/05/17 07:26 Phosphorus 6.4 mg/dL (2.5-4.5) H 07/04/17 08:40 Magnesium 2.3 mg/dL (1.6-2.3) 07/04/17 08:40 Iron 29 ug/dL (37-170) L 06/28/17 14:00 TIBC 231 ug/dL (250-450) L 06/28/17 14:00 % Saturation 13 (20-55) L 06/28/17 14:00 Ferritin 37.6 ng/mL 06/28/17 07:08 Total Bilirubin 0.2 mg/dL (0.2-1.3) 07/05/17 07:26 AST 21 U/L (14-36) 07/05/17 07:26 ALT 23 U/L (9-52) 07/05/17 07:26 Alkaline Phosphatase 58 U/L (38-126) 07/05/17 07:26 Lactate Dehydrogenase 619 U/L (313-618) H 06/30/17 07:05 Troponin I 0.0460 ng/mL (0.00-0.120) 06/28/17 16:38 NT-Pro-B Natriuret Pep 06587 pg/mL (0-900) H 06/27/17 16:58 Total Protein 6.1 g/dL (6.3-8.3) L 07/05/17 07:26 Total Protein (PEP) 6.6 g/dL (6.1-8.1) 06/28/17 14:00 Albumin 2.8 g/dL (3.5-5.0) L 07/05/17 07:26 Albumin (PEP) 3.1 g/dL (3.8-4.8) L 06/28/17 14:00 Globulin 3.3 gm/dL (2.2-3.9) 07/05/17 07:26 Albumin/Globulin Ratio 0.9 (1.0-2.1) L 07/05/17 07:26 Wzgwm-8-Pjxtghbrs 0.4 g/dL (0.2-0.3) H 06/28/17 14:00 Fckoy-9-Lntaduzxm 0.9 g/dL (0.5-0.9) 06/28/17 14:00 Hape-4-Zeegoilr 0.4 g/dL (0.4-0.6) 06/28/17 14:00 Uwpl-6-Qwpqokos 0.7 g/dL (0.2-0.5) H 06/28/17 14:00 Gamma Globulins 1.0 g/dL (0.8-1.7) 06/28/17 14:00 Abnorm Protein Band 1 TEST NOT PERFORMED 06/28/17 14:00 Abnorm Protein Band 2 TEST NOT PERFORMED 06/28/17 14:00 Abnorm Protein Band 3 TEST NOT PERFORMED 06/28/17 14:00 Triglycerides 60 mg/dL (0-149) 06/28/17 07:08 Cholesterol 220 mg/dL (0-199) H 06/28/17 07:08 LDL Cholesterol Direct 128 mg/dL (0-129) 06/28/17 07:08 HDL Cholesterol 79 mg/dL (30-70) H 06/28/17 07:08 Carcinoembryonic Ag 3.2 ng/mL (0-3.0) H 06/30/17 07:05 CA 19-9 Antigen < 1.4 U/mL (0-37) 06/30/17 07:05 Vitamin B12 890 pg/mL (239-931) 06/28/17 07:08 25-OH Vitamin D Total 20.3 NG/ML (30.0-100.0) L 06/28/17 14:00 Folate 12.8 ng/mL 06/28/17 07:08 Thyroxine (T4) 9.47 ug/dL (5.5-11.0) 06/28/17 07:08 TSH 3rd Generation 1.02 mIU/L (0.46-4.68) 06/28/17 07:08 PTH Intact Whole Molec 99 pg/mL (14-64) H 06/28/17 14:00 Urine Color Yellow (YELLOW) 06/28/17 12:02 Urine Clarity Hazy (Clear) 06/28/17 12:02 Urine pH 5.0 (5.0-8.0) 06/28/17 12:02 Ur Specific Max 1.009 (1.003-1.030) 06/28/17 12:02 Urine Protein 3+ mg/dL (NEGATIVE) H 06/28/17 12:02 Urine Glucose (UA) 3+ mg/dL (Normal) H 06/28/17 12:02 Urine Ketones Negative mg/dL (NEGATIVE) 06/28/17 12:02 Urine Blood 1+ (NEGATIVE) H 06/28/17 12:02 Urine Nitrate Negative (NEGATIVE) 06/28/17 12:02 Urine Bilirubin Negative (NEGATIVE) 06/28/17 12:02 Urine Urobilinogen Normal mg/dL (0.2-1.0) 06/28/17 12:02 Ur Leukocyte Esterase Neg Rosalino/uL (Negative) 06/28/17 12:02 Urine WBC (Auto) 6 /hpf (0-5) H 06/28/17 12:02 Urine RBC (Auto) 1 /hpf (0-3) 06/28/17 12:02 Ur Squamous Epith Cells 2 /hpf (0-5) 06/28/17 12:02 Urine Bacteria Few (<OCC) H 06/28/17 12:02 Ur Random Creatinine 59.8 mg/dL 06/28/17 12:03 U Random Total Protein 322.0 mg/dL (0.0-12.0) H 06/28/17 12:03 Urine Microalbumin > 950.0 mg/L (0.0-16.6) H 06/28/17 12:07 Fluid Source Pleural/thoracentesi 06/30/17 13:05 Fluid Appearance Sl cloudy (CLEAR) 06/30/17 13:05 Fluid WBC 313.0 /mm3 (0.0-300.0) H 06/30/17 13:05 Fluid RBC 431.0 /mm3 (0.0-0.0) H 06/30/17 13:05 Fluid Tot Cell Count TEST NOT PERFORMED 06/30/17 13:05 Fluid Neutrophils 9.0 % (0-0) H 06/30/17 13:05 Fluid Lymphocytes 88.0 % (0-0) H 06/30/17 13:05 Fld Monocyte/Macrophag 3 % (0-0) H 06/30/17 13:05 Fluid Comment 06/30/17 13:05 Pleural Total Protein <3.0 g/dL 06/30/17 13:05 Pleural LDH 99 U/L 06/30/17 13:05 Pleural Fluid CEA <0.5 ng/mL (<10.0) 06/30/17 13:05 MORENA & SPEP Interp See note 06/28/17 14:00 Serum Immunofixation Not detected (Not Detected) 06/28/17 14:00 CANDY Nuclear Membr Pat Negative (Negative) 06/28/17 14:00 Double Strand DNA Ab 1 IU/mL 06/28/17 14:00 Complement C3 134.0 mg/dL (88.0-165.0) 06/28/17 09:00 Complement C4 37.5 mg/dL (14.0-44.0) 06/28/17 09:00 Tot Leith/Lambda Ratio 1.88 (1.29-2.55) 06/28/17 14:00 Leith Light Chain Anal 256 mg/dL (176-443) 06/28/17 14:00 Lambda Light Chain Anal 136 mg/dL (91-240) 06/28/17 14:00 Hep Bs Antigen Negative (NEGATIVE) 06/29/17 06:58 Hep Bs Antibody Negative (NEGATIVE) 06/29/17 06:58 Hep B Core IgM Ab Negative (NEGATIVE) 06/29/17 06:58 Hepatitis C Antibody Negative (NEGATIVE) 06/29/17 06:58 HIV 1&2 Antibody Screen Negative (NEGATIVE) 06/29/17 06:58 Attending/Attestation - Attestation I have personally seen and examined this patient.: Yes I have fully participated in the care of the patient.: Yes I have reviewed all pertinent clinical information, including history, physical exam and plan: Yes Notes (Text): Patient was seen and examined with the resident. She was asked to take her medication and follow medical clinic. Patient will follow sustainability analyst Dr Ruth also. I agree with the resident's discharge plan. 07/05/17 18:04
--- NOTE | 2017-07-05 19:53 | RAD ---
Chest x-ray single frontal view History: Congestive heart failure follow-up. Comparison: 06/27/2017 Findings: Mild venous congestion. Patchy increased markings at the left lung base with question trace left pleural effusion. Bilateral hilar prominence. Top normal heart size. Degenerative changes in the spine. Impression: Mild venous congestion. Patchy increased markings at the left lung base with question trace left pleural effusion. Bilateral hilar prominence.
--- NOTE | 2017-07-06 08:02 | PCM.HF ---
Heart Failure Core Measure - Heart Failure Ejection Fraction: 40 % or Greater Left Ventricular Function to be assessed after discharge: Yes MELISA Inhibitor Prescribed: No Contraindication/Reason for not providing: RENAL FAILURE Beta-Cathy Prescribed: Carvedilol Angiotensin II Receptor Cathy Prescribed: No Contraindication/Reason for not providing: RENAL FAILURE AnticoagulationTherapy for Atrial Fibrillation/Atrialflutter: No Contraindication/Reason for not providing: NO HX OF A FIB Aldosterone Antagonist Prescribed: No Contraindication/Reason for not providing: ARF Hydralazine Nitrate Prescribed: Yes Implantable Cardioverter Defibrillator Therapy: No Contraindication/Reason for not providing: MEDICAL MANAGEMENT Cardiac Resynchronization Therapy Prescribed: No Contraindication/Reason for not providing: MEICAL MANAGEMNT - Follow up Will be discharged to: Home Follow Up Date (must be within 7 days from discharge): 07/09/17 Follow Up Time: 09:00
== END 2017-07-05 14:58 | disposition home or self-care (01) | DRG 264 ==
LOC: C.ER 15:30 → C.9E 18:06 → C.6T 18:30
PROVIDERS: ADMIT Hospitalist; ATTEND Hospitalist
PROC: 0W993ZX Drainage of Right Pleural Cavity, Percutaneous Approach, Diagnostic (ICD-10-PCS; 2017-06-30)
PROC: 5A09457 Assistance with Respiratory Ventilation, 24-96 Consecutive Hours, Continuous Positive Airway Pressure (ICD-10-PCS; 2017-06-30)
PROC: 031 Upper Arteries, Bypass (ICD-10-PCS; principal; 2017-07-02 12:15)
DX: I13.2 Hypertensive heart and chronic kidney disease with heart failure and with stage 5 chronic kidney disease, or end stage renal disease (principal); N18.6 End stage renal disease; I31.3 Pericardial effusion (noninflammatory); J98.11 Atelectasis; N04.9 Nephrotic syndrome with unspecified morphologic changes; N25.81 Secondary hyperparathyroidism of renal origin; N39.0 Urinary tract infection, site not specified; N17.9 Acute kidney failure, unspecified; J90 Pleural effusion, not elsewhere classified; B96.20 Unspecified Escherichia coli [E. coli] as the cause of diseases classified elsewhere; E11.22 Type 2 diabetes mellitus with diabetic chronic kidney disease; I50.9 Heart failure, unspecified; I16.0 Hypertensive urgency; L97.519 Non-pressure chronic ulcer of other part of right foot with unspecified severity; E11.621 Type 2 diabetes mellitus with foot ulcer; L97.529 Non-pressure chronic ulcer of other part of left foot with unspecified severity; Z91.14 Patient's other noncompliance with medication regimen; F41.9 Anxiety disorder, unspecified; E87.5 Hyperkalemia; D64.9 Anemia, unspecified